=== PATIENT | male | born 1965 | race Caucasian/White ===

== ENCOUNTER → 2017-01-15 | Day surgery (SDC) | payer MEDICAID ==
[~2017-01-15] MED LIST: Lactated Ringers 1,000 ML IV SCH; Propofol 200 MG/20 ML SDV IV ONE
[2017-01-15 09:29] VITALS: BP 160/92
--- NOTE | 2017-01-15 13:36 | OR ---
DATE OF OPERATION: 01/15/2017 PREOPERATIVE DIAGNOSIS: SCREENING COLONOSCOPY. POSTOPERATIVE DIAGNOSIS: SCREENING COLONOSCOPY. SURGEON: Indra Watson MD PROCEDURE: FULL-LENGTH COLONOSCOPY WITH SNARE POLYPECTOMY X1. ANESTHESIA: SKIVER MACHINE due to morbid obesity, GERD. COMPLICATIONS: None. SPECIMEN: Large tubular adenoma in rectal vault. FINDINGS: 1. Full-length colonoscopy. 2. Tubular adenoma greater than 0.5 cm rectal vault. RECOMMENDATIONS: Followup colonoscopy in 2 years. INDICATIONS: The patient was due for a physical. Dr. Jiménez recommended a screening colonoscopy. DESCRIPTION OF PROCEDURE: The patient was prepped and draped, placed in the left lateral decubitus position. A lubricated Olympus colonoscope was inserted and with relative ease advanced to the cecum. We were able to directly visualize the ileocecal valve and appendiceal orifice. The bowel prep was marginal. There was a lot of dark liquid stool throughout and in certain areas were certainly hard to see. Upon withdrawal, cecum, ascending and transverse colon showed no gross abnormalities, but much stool was present. Left colon was little easier to visualize as most of the stool was suctionable there. Throughout the descending and sigmoid area, I found no signs of any polyps, masses, ulcerations, or bleeding sites. No obvious vascular abnormalities or signs of colitis. There were no obvious diverticula. Rectosigmoid junction appeared benign in the rectal vault. The patient had a stalked tubular adenoma 3 or 4 cm inside the anal verge. I easily removed with a snare and pulled out through the rectum itself. It measured about 6 mm. The rest of rectal vault was benign. Retroflexion showed no perianal lesions. Air was then suctioned. Scope was removed without complication. TIFFANIE/EMILIANO /[id number]
== END ==
LOC: CC.SDS 06:54
PROVIDERS: ATTEND Family Medicine
DX: Z12.11 Encounter for screening for malignant neoplasm of colon (principal); K62.1 Rectal polyp; K62.6 Ulcer of anus and rectum; K21.9 Gastro-esophageal reflux disease without esophagitis; E66.01 Morbid (severe) obesity due to excess calories; N40.0 Benign prostatic hyperplasia without lower urinary tract symptoms; E11.9 Type 2 diabetes mellitus without complications; E78.5 Hyperlipidemia, unspecified; Z79.84 Long term (current) use of oral hypoglycemic drugs; Z98.890 Other specified postprocedural states; Z79.899 Other long term (current) drug therapy; Z72.0 Tobacco use; Z68.43 Body mass index [BMI] 50.0-59.9, adult
CPT/HCPCS: 45385; 82962; J2704; J7120

== ENCOUNTER 2017-02-03 15:16 | Inpatient (IN) | payer MEDICAID ==
[2017-02-03] MEDS ORDERED: Sodium Chloride 0.9% 10 ML Syringe FLUSH PRN (15:20)
[2017-02-03] MEDS ORDERED: Docusate Sodium 100 MG Cap PO PRN (15:20)
[2017-02-03] MEDS ORDERED: Acetaminophen 325 MG Tab PO PRN (15:20)
[2017-02-03] MEDS ORDERED: Temazepam 15 MG Cap PO PRN (15:20)
[2017-02-03] MEDS ORDERED: Levofloxacin/Dextrose 5%-Water 500 MG in Premix Bag 1 BAG IV ONE (15:30)
[2017-02-03] MEDS ORDERED: methylPREDNISolone Sodium Succinate 125 MG/2 ML SDV IVPUSH ONE (15:30)
[2017-02-03 16:08] LABS: BICARBONATE,ARTERIAL 33.7 mm/L (22.0-26.0); O2 DELIVERY DEVICE ROOM AIR; O2 SATURATION ARTERIAL 85 % (95-98); PCO2 ARTERIAL 45 mm/Hg0 (35-45); PO2 ARTERIAL 47 mm/Hg (80-100)
[2017-02-03 16:28] LABS: CHLORIDE,CL 98 mEq/L (98-106); SODIUM,NA 138 mEq/L (136-145)
[2017-02-03] MEDS: Albuterol/Ipratropium 3.0-0.5 MG/3 ML Neb Soln NEB SCH ×2 (17:37→20:44)
[2017-02-03] MEDS: metFORMIN 500 MG Tab PO SCH (18:11)
[2017-02-03] MEDS: Ferrous Sulfate 324 MG Tab.EC PO SCH (18:11)
[2017-02-03] MEDS: Insulin Aspart 100 Units/ML 3 ML Pen SUBCUT SCH ×2 (18:19→20:46)
[2017-02-03] MEDS ORDERED: methylPREDNISolone Sodium Succinate 125 MG/2 ML SDV ONE (18:41)
[2017-02-03] MEDS ORDERED: Insulin Detemir 100 Units/ML 3 ML Pen SUBCUT SCH (20:00)
[2017-02-03] MEDS: Enoxaparin 40 MG/0.4 ML Syringe SUBCUT SCH (20:44)
[2017-02-03] MEDS: Simvastatin 20 MG Tab PO SCH (20:44)
[2017-02-03] MEDS: Ascorbic Acid 500 MG Tab PO SCH (20:44)
[2017-02-03] MEDS: Famotidine 20 MG Tab PO SCH (20:44)
[2017-02-04] MEDS: metFORMIN 500 MG Tab PO SCH ×2 (08:21→17:49)
[2017-02-04] MEDS: Ferrous Sulfate 324 MG Tab.EC PO SCH ×2 (08:21→17:49)
[2017-02-04] MEDS: amLODIPine 10 MG Tab PO SCH (08:22)
[2017-02-04] MEDS: Lisinopril 10 MG Tab PO SCH (08:22)
[2017-02-04] MEDS: Ascorbic Acid 500 MG Tab PO SCH ×2 (08:22→19:45)
[2017-02-04] MEDS: Folic Acid 1 MG Tab PO SCH (08:22)
[2017-02-04] MEDS: Famotidine 20 MG Tab PO SCH ×2 (08:22→19:45)
[2017-02-04] MEDS: Hydrochlorothiazide 25 MG Tab PO SCH (08:22)
[2017-02-04] MEDS: Atenolol 50 MG Tab PO SCH (08:22)
[2017-02-04] MEDS: methylPREDNISolone Sodium Succinate 125 MG/2 ML SDV IVPUSH SCH (08:23)
[2017-02-04] MEDS: Levofloxacin/Dextrose 5%-Water 500 MG in Premix Bag 1 BAG IV SCH (08:23)
[2017-02-04] MEDS: Albuterol/Ipratropium 3.0-0.5 MG/3 ML Neb Soln NEB SCH ×4 (08:24→20:50)
[2017-02-04] MEDS: Insulin Aspart 100 Units/ML 3 ML Pen SUBCUT SCH ×6 (08:31→20:51)
[2017-02-04] MEDS ORDERED: Insulin Aspart 100 Units/ML 3 ML Pen SUBCUT SCH (12:00)
[2017-02-04] MEDS: Simvastatin 20 MG Tab PO SCH (19:45)
[2017-02-04] MEDS: Enoxaparin 40 MG/0.4 ML Syringe SUBCUT SCH (19:45)
[2017-02-04] MEDS ORDERED: Insulin Detemir 100 Units/ML 3 ML Pen SUBCUT SCH (20:00)
[2017-02-05] MEDS: Ferrous Sulfate 324 MG Tab.EC PO SCH ×2 (07:45→17:43)
[2017-02-05] MEDS: Folic Acid 1 MG Tab PO SCH (07:45)
[2017-02-05] MEDS: Hydrochlorothiazide 25 MG Tab PO SCH (07:46)
[2017-02-05] MEDS: Famotidine 20 MG Tab PO SCH ×2 (07:47→20:51)
[2017-02-05] MEDS: Ascorbic Acid 500 MG Tab PO SCH ×2 (07:48→20:51)
[2017-02-05] MEDS: amLODIPine 10 MG Tab PO SCH (07:49)
[2017-02-05] MEDS: Atenolol 50 MG Tab PO SCH (07:50)
[2017-02-05] MEDS: metFORMIN 500 MG Tab PO SCH ×2 (07:57→17:43)
[2017-02-05] MEDS: Lisinopril 10 MG Tab PO SCH (07:58)
[2017-02-05] MEDS: methylPREDNISolone Sodium Succinate 125 MG/2 ML SDV IVPUSH SCH (07:58)
[2017-02-05] MEDS: Insulin Aspart 100 Units/ML 3 ML Pen SUBCUT SCH ×7 (08:08→20:53)
[2017-02-05] MEDS: Levofloxacin/Dextrose 5%-Water 500 MG in Premix Bag 1 BAG IV SCH (08:10)
--- NOTE | 2017-02-05 08:13 | PN ---
DATE: 02/04/2017 S: Jovanny is in with acute bronchiolitis, hypoxic. Says he feels better. Today, the sats are up a little bit. O: NECK: Supple. CHEST: Still in expiratory wheezing, but improved. I did look at his chest x-ray and that shows just some bronchial infection, no pneumonias. GLADYS/EMILIANO /[id number]
[2017-02-05] MEDS: Albuterol/Ipratropium 3.0-0.5 MG/3 ML Neb Soln NEB SCH ×4 (08:15→20:51)
[2017-02-05] MEDS ORDERED: Insulin Detemir 100 Units/ML 3 ML Pen SUBCUT SCH (20:00)
[2017-02-05] MEDS: Enoxaparin 40 MG/0.4 ML Syringe SUBCUT SCH (20:51)
[2017-02-05] MEDS: Simvastatin 20 MG Tab PO SCH (20:51)
--- NOTE | 2017-02-06 07:36 | PCM.DCSUM1 ---
Discharge Summary - Hospital Course HPI Initial Comments: This patient is a 52 year old male that was admitted for bronchitis with shortness of breath. The patient reports today he is feeling much better. The patient has been ambulating in the hallways without any difficulty or shortness of breath. The patient is conversing in full and complete sentences without any difficulty. Patient is in no acute distress. I have discussed patient case with PCP, will discharge home today. I will continue his abx and steroids. Patient has had elevation of wbc, I believe this is due to steroid use. Stable. - Discharge Data Discharge Date: 02/06/17 Discharge Disposition: Home, Self-Care 01 Condition: Good - Patient Summary/Data Consults: Consultations 02/03/17 15:20 PT Evaluation and Treatment [CONS] Routine - Patient Instructions Diet: Usual Diet as Tolerated Activity: As Tolerated Driving: May Drive Today Showering/Bathing: May Shower Notify Provider of: Fever, Nausea and/or Vomiting Other/Special Instructions: Return for difficulty breathing, fever, or any other concerns - Discharge Plan Prescriptions/Med Rec: Levofloxacin/Dextrose 5%-Water [Levaquin in D5W 500 MG/100 ML] 500 mg PO Q24H # 5 bag Prednisone [IJD: predniSONE] 20 mg PO BID #10 tab Home Medications: Home Meds Acetaminophen [Tylenol] 650 mg PO Q4H PRN 04/24/13 [History] Ascorbic Acid [Vitamin C] 500 mg PO BID 04/24/13 [History] Atenolol [Tenormin] 50 mg PO DAILY 04/24/13 [History] Famotidine [Pepcid] 20 mg PO BID 04/24/13 [History] Ferrous Sulfate [Iron] 325 mg PO BID 04/24/13 [History] Folic Acid 1 mg PO DAILY 04/24/13 [History] Hydrochlorothiazide 25 mg PO DAILY 04/24/13 [History] Insulin Aspart [NovoLOG] 20 unit SUBCUT WITHLUNCH 04/24/13 [History] Insulin Glarg,Human.Rec.Analog [Lantus] 64 unit SQ BEDTIME 04/24/13 [History] Lisinopril [Zestril] 10 mg PO DAILY 04/24/13 [History] amLODIPine [Norvasc] 10 mg PO DAILY 04/24/13 [History] Magnesium 500 mg PO DAILY 01/27/15 [History] Multivitamin [Multivitamins] 1 tab PO DAILY 01/27/15 [History] Cholecalciferol (Vitamin D3) [Vitamin D3] 5,000 unit PO DAILY 09/07/15 [History] metFORMIN HCl [Metformin HCl] 1,000 mg PO BID 01/14/17 [History] Rosuvastatin Calcium 10 mg PO BEDTIME 02/03/17 [History] Testosterone Cypionate 200 mg IM Q30D 02/03/17 [History] Levofloxacin/Dextrose 5%-Water [Levaquin in D5W 500 MG/100 ML] 500 mg PO Q24H # 5 bag 02/06/17 [Rx] Prednisone [IJD: predniSONE] 20 mg PO BID #10 tab 02/06/17 [Rx] Patient Handouts: Acute Bronchitis Referrals: Reilly Jiménez MD [Primary Care Provider] - - Discharge Summary/Plan Comment DC Time >30 min.: No Discharge Summary/Plan Comment: Followup with your primary care provider Wednesday Return to the ER for worsening of condition or any emergent concerns Prednisone 20mg 1 pill twice a day for 5 days #10 no refill Levaquin 500mg 1 pill once a day for 5 days #5 no refill - General Info Date of Service: 02/06/17 Functional Status: Reports: Pain Controlled, Tolerating Diet, Ambulating - Review of Systems General: Reports: No Symptoms HEENT: Reports: No Symptoms Pulmonary: Reports: No Symptoms Cardiovascular: Reports: No Symptoms Gastrointestinal: Reports: No Symptoms Genitourinary: Reports: No Symptoms Musculoskeletal: Reports: No Symptoms Skin: Reports: No Symptoms Neurological: Reports: No Symptoms Psychiatric: Reports: No Symptoms - Patient Data Vitals - Most Recent: Last Vital Signs Temp 98.9 F 02/06/17 03:59 Pulse 76 02/06/17 03:59 Resp 20 02/06/17 03:59 BP 153/68 H 02/06/17 03:59 Pulse Ox 90 L 02/06/17 03:59 Weight - Most Recent: 363 lb 9.6 oz I&O - Last 24 hours: Intake & Output 02/05/17 02/06/17 02/06/17 22:59 06:59 14:59 Intake Total 200 Balance 200 Lab Results - Last 24 hrs: Laboratory Results - last 24 hr 02/05/17 02/05/17 02/05/17 Range/Units 07:45 11:36 17:07 POC Glucose 182 H 225 H 236 H (75-105) mg/dl 02/05/17 Range/Units 20:49 POC Glucose 275 H (75-105) mg/dl ESTELLE Results - Last 24 hrs: Microbiology 02/03/17 15:55 Aerobic Blood Culture - Preliminary Blood - Venous NO GROWTH AFTER 2 DAYS Anaerobic Blood Culture - Preliminary NO GROWTH AFTER 2 DAYS 02/03/17 15:55 Aerobic Blood Culture - Preliminary Blood - Venous - Lab Draw NO GROWTH AFTER 2 DAYS Anaerobic Blood Culture - Preliminary NO GROWTH AFTER 2 DAYS Med Orders - Current: Current Medications Acetaminophen (Tylenol) 650 mg PO Q4H PRN PRN Reason: Pain (Mild 1-3)/fever Last Admin: 02/03/17 20:55 Dose: 650 mg Albuterol/Ipratropium (Duoneb 3.0-0.5 Mg/3 Ml) 3 ml NEB QIDRT [facility] Last Admin: 02/05/17 20:51 Dose: 3 ml Amlodipine Besylate (Norvasc) 10 mg PO DAILY [facility] Last Admin: 02/05/17 07:49 Dose: 10 mg Ascorbic Acid (Vitamin C) 500 mg PO BID [facility] Last Admin: 02/05/17 20:51 Dose: 500 mg Atenolol (Tenormin) 50 mg PO DAILY [facility] Last Admin: 02/05/17 07:50 Dose: 50 mg Docusate Sodium (Colace) 100 mg PO BID PRN PRN Reason: Constipation Enoxaparin Sodium (Lovenox) 40 mg SUBCUT Q24H [facility] Last Admin: 02/05/17 20:51 Dose: 40 mg Famotidine (Pepcid) 20 mg PO BID [facility] Last Admin: 02/05/17 20:51 Dose: 20 mg Ferrous Sulfate (Ferrous Sulfate) 324 mg PO BIDMEALS [facility] Last Admin: 02/05/17 17:43 Dose: 324 mg Folic Acid (Folic Acid) 1 mg PO DAILY [facility] Last Admin: 02/05/17 07:45 Dose: 1 mg Hydrochlorothiazide (Hydrochlorothiazide) 25 mg PO DAILY [facility] Last Admin: 02/05/17 07:46 Dose: 25 mg Levofloxacin/Dextrose 500 mg/ (Premix) 100 mls @ 100 mls/hr IV Q24H [facility] Last Admin: 02/05/17 08:10 Dose: 100 mls/hr Insulin Aspart (Novolog) 0 unit SUBCUT WITHMEALSANDBED [facility] PRN Reason: Protocol Last Admin: 02/05/17 20:53 Dose: 9 units Insulin Aspart (Novolog) 14 unit SUBCUT TIDMEALS [facility] Last Admin: 02/05/17 17:45 Dose: 14 units Insulin Detemir (Levemir) 75 unit SUBCUT BEDTIME [facility] Last Admin: 02/05/17 20:52 Dose: 75 units Lisinopril (Prinivil) 10 mg PO DAILY [facility] Last Admin: 02/05/17 07:58 Dose: 10 mg Magnesium Oxide (Magnesium Oxide) 500 mg PO DAILY [facility] Last Admin: 02/05/17 07:58 Dose: 500 mg Metformin HCl (Glucophage) 1,000 mg PO BIDMEALS [facility] Last Admin: 02/05/17 17:43 Dose: 1,000 mg Methylprednisolone Sodium Succinate (Solu-Medrol) 62.5 mg IVPUSH Q24H [facility] Last Admin: 02/05/17 07:58 Dose: 62.5 mg Simvastatin (Zocor) 20 mg PO BEDTIME [facility] Last Admin: 02/05/17 20:51 Dose: 20 mg Sodium Chloride (Saline Flush) 10 ml FLUSH ASDIRECTED PRN PRN Reason: Keep Vein Open Temazepam (Restoril) 15 mg PO BEDTIME PRN PRN Reason: Sleep Discontinued Medications Levofloxacin/Dextrose 500 mg/ (Premix) 100 mls @ 100 mls/hr IV ONETIME ONE Stop: 02/03/17 16:29 Last Admin: 02/03/17 17:09 Dose: 100 mls/hr Insulin Aspart (Novolog) 20 unit SUBCUT WITHLUNCH [facility] Insulin Aspart (Novolog) 10 unit SUBCUT TIDMEALS [facility] Last Admin: 02/05/17 08:08 Dose: 10 unit Insulin Detemir (Levemir) 64 unit SUBCUT BEDTIME [facility] Last Admin: 02/03/17 20:47 Dose: 64 units Insulin Detemir (Levemir) 70 unit SUBCUT BEDTIME [facility] Last Admin: 02/04/17 19:47 Dose: 70 units Methylprednisolone Sodium Succinate (Solu-Medrol) 62.5 mg IVPUSH ONETIME ONE Stop: 02/03/17 15:31 Last Admin: 02/03/17 18:28 Dose: 62.5 mg Methylprednisolone Sodium Succinate (Solu-Medrol) Confirm Administered Dose 125 mg .ROUTE .STK-MED ONE Stop: 02/03/17 18:42 Last Admin: 02/03/17 18:32 Dose: Not Given - Exam General: Reports: Alert, Oriented, Cooperative, No Acute Distress Neck: Reports: Supple Lungs: Reports: Clear to Auscultation, Normal Respiratory Effort GI/Abdominal Exam: Soft, Non-Tender Back Exam: Reports: Normal Inspection, Full Range of Motion Extremities: Normal Inspection, Normal Range of Motion, Non-Tender, No Pedal Edema, Normal Capillary Refill Skin: Reports: Warm, Dry, Intact Neurological: Reports: No New Focal Deficit Psy/Mental Status: Reports: Alert, Normal Affect, Normal Mood *Q Meaningful Use (DIS) - VTE *Q VTE Criteria *Q: - Stroke *Q Stroke Criteria *Q: - AMI *Q AMI Criteria *Q:
[2017-02-06 08:01] LABS: CHLORIDE,CL 100 mEq/L (98-106); SODIUM,NA 135 mEq/L (136-145)
[2017-02-06 08:29] VITALS: BP 148/66
[2017-02-06] MEDS: Hydrochlorothiazide 25 MG Tab PO SCH (08:29)
[2017-02-06] MEDS: Albuterol/Ipratropium 3.0-0.5 MG/3 ML Neb Soln NEB SCH (08:29)
[2017-02-06] MEDS: Famotidine 20 MG Tab PO SCH (08:29)
[2017-02-06] MEDS: Lisinopril 10 MG Tab PO SCH (08:29)
[2017-02-06] MEDS: Folic Acid 1 MG Tab PO SCH (08:29)
[2017-02-06] MEDS: Ferrous Sulfate 324 MG Tab.EC PO SCH (08:30)
[2017-02-06] MEDS: Ascorbic Acid 500 MG Tab PO SCH (08:30)
[2017-02-06] MEDS: amLODIPine 10 MG Tab PO SCH (08:30)
[2017-02-06] MEDS: metFORMIN 500 MG Tab PO SCH (08:31)
[2017-02-06] MEDS: methylPREDNISolone Sodium Succinate 125 MG/2 ML SDV IVPUSH SCH (08:31)
[2017-02-06] MEDS: Insulin Aspart 100 Units/ML 3 ML Pen SUBCUT SCH ×2 (08:33→08:34)
[2017-02-06] MEDS: Levofloxacin/Dextrose 5%-Water 500 MG in Premix Bag 1 BAG IV SCH (08:35)
[2017-02-06] MEDS: Atenolol 50 MG Tab PO SCH (08:40)
--- NOTE | 2017-02-12 09:24 | PN ---
DATE: 02/05/2017 S: The patient with severe bronchiolitis. O: GENERAL: On examination, the patient is alert and orientated. VITAL SIGNS: As noted. NECK: Supple. CHEST: Occasional wheeze. CARDIAC: Sounds are good. No edema or bronchiolitis. P: Continue present therapy. KASIE /[id number]
== END 2017-02-06 10:25 | disposition home or self-care (01) | DRG 203 ==
LOC: CC.MS 15:16 → UNDOADMIN 15:16 → CC.MS 15:20
PROVIDERS: ADMIT General Practice; ATTEND General Practice
DX: J21.9 Acute bronchiolitis, unspecified (principal); E11.9 Type 2 diabetes mellitus without complications; M19.90 Unspecified osteoarthritis, unspecified site; I10 Essential (primary) hypertension; E29.1 Testicular hypofunction; E78.5 Hyperlipidemia, unspecified; Z88.1 Allergy status to other antibiotic agents; Z79.82 Long term (current) use of aspirin; Z79.4 Long term (current) use of insulin; Z79.84 Long term (current) use of oral hypoglycemic drugs; Z79.899 Other long term (current) drug therapy
CPT/HCPCS: 36415; 36600; 71020; 80048; 80053; 81001; 82803; 82962; 83735; 83880; 84443; 85025; 86140; 87040; 93005; 94640; 94640-76; 97110-GP; 97161-GP; A9270-GY; J1650; J1815-GY; J1956; J2930

== ENCOUNTER 2017-05-24 09:43 | Emergency (ER) | payer MEDICAID ==
[2017-05-24 09:50] VITALS: BP 140/70
[2017-05-24] MEDS ORDERED: Albuterol/Ipratropium 3.0-0.5 MG/3 ML Neb Soln ONE (10:03)
[2017-05-24] MEDS ORDERED: Albuterol/Ipratropium 3.0-0.5 MG/3 ML Neb Soln NEB ONE (10:13)
[2017-05-24 10:30] LABS: CHLORIDE,CL 95 mEq/L (98-106); SODIUM,NA 134 mEq/L (136-145)
[2017-05-24] MEDS ORDERED: Lidocaine 1% 20 ML MDV ONE (10:31)
[2017-05-24] MEDS ORDERED: cefTRIAXone 1 GM Vial IM ONE (10:35)
[2017-05-24] MEDS ORDERED: methylPREDNISolone Acetate 80 MG/ML SDV IM ONE (10:35)
[2017-05-24] MEDS ORDERED: methylPREDNISolone Acetate 80 MG/ML SDV ONE (10:41)
--- NOTE | 2017-05-24 10:53 | EDM.PDOC ---
ED HPI GENERAL MEDICAL PROBLEM - General Chief Complaint: General Stated Complaint: cough, sore throat Time Seen by Provider: 05/24/17 10:27 Source of Information: Reports: Patient History Limitations: Reports: No Limitations - History of Present Illness INITIAL COMMENTS - FREE TEXT/NARRATIVE: Nathaniel is a 52 year old male who presents to the ED with complaints of cold symptoms, cough, and shortness of breath. He complains of nasal congestion, pressure, and drainage. He also reports sore throat and cough. Denies any fever or chills. Denies any chest pain, dizziness, lightheadedness. He reports that for about the past week he has had cold symptoms. He reports he has nebulizer treatments at home, which he has been doing. He reports these help some. He also has a home O2 sat monitor. He reports his oxygen saturations have been good. He has been eating and drinking ok. Onset Date: 05/19/17 Duration: Getting Worse Location: Reports: Head, Chest Associated Symptoms: Reports: Cough, cough w sputum, Shortness of Breath. Denies: Confusion, Chest Pain, Diaphoresis, Fever/Chills, Headaches, Loss of Appetite, Malaise, Nausea/Vomiting, Rash, Seizure, Syncope, Weakness Treatments [employer]: Reports: Home Treatments (Duonebs) - Related Data Allergies Allergy/AdvReac Type Severity Reaction Status Date / Time sulfamethoxazole Allergy Shortness Verified 05/24/17 09:50 [From Bactrim] of Breath trimethoprim [From Bactrim] Allergy Shortness Verified 05/24/17 09:50 of Breath Home Meds: Home Meds Acetaminophen [Tylenol] 650 mg PO Q4H PRN 04/24/13 [History] Ascorbic Acid [Vitamin C] 500 mg PO BID 04/24/13 [History] Atenolol [Tenormin] 50 mg PO BID 04/24/13 [History] Famotidine [Pepcid] 20 mg PO BID 04/24/13 [History] Ferrous Sulfate [Iron] 325 mg PO BID 04/24/13 [History] Folic Acid 1 mg PO DAILY 04/24/13 [History] Hydrochlorothiazide 25 mg PO DAILY 04/24/13 [History] Insulin Aspart [NovoLOG] 20 unit SUBCUT WITHLUNCH 04/24/13 [History] Insulin Glarg,Human.Rec.Analog [Lantus] 56 unit SQ BEDTIME 04/24/13 [History] Lisinopril [Zestril] 10 mg PO DAILY 04/24/13 [History] amLODIPine [Norvasc] 10 mg PO DAILY 04/24/13 [History] Magnesium 500 mg PO DAILY 01/27/15 [History] Multivitamin [Multivitamins] 1 tab PO DAILY 01/27/15 [History] Cholecalciferol (Vitamin D3) [Vitamin D3] 5,000 unit PO DAILY 09/07/15 [History] metFORMIN HCl [Metformin HCl] 1,000 mg PO BID 01/14/17 [History] Rosuvastatin Calcium 10 mg PO BEDTIME 02/03/17 [History] Testosterone Cypionate 200 mg IM Q30D 02/03/17 [History] Albuterol/Ipratropium [DuoNeb 3.0-0.5 MG/3 ML] 1 vial NEB QID PRN 05/24/17 [ History] Albuterol/Ipratropium [DuoNeb 3.0-0.5 MG/3 ML] 3 ml NEB Q6H PRN #30 neb [Rx] Fluconazole [Diflucan] 100 mg PO DAILY 05/24/17 [History] Ketoconazole [Nizoral 2% Crm] 1 applic TOP BID PRN 05/24/17 [History] Levofloxacin [Levaquin] 500 mg PO Q24H 7 Days #7 tablet 05/24/17 [Rx] Liraglutide [Victoza] 1.8 mg SUBCUT DAILY 05/24/17 [History] Prednisone [IJD: predniSONE] 20 mg PO WITHBREAKFAST 5 Days #5 tab 05/24/17 [Rx] Past Medical History HEENT History: Reports: Impaired Vision, Other (See Below) Other HEENT History: right hearing loss due to cerumen impaction, TMJ syndrome Cardiovascular History: Reports: High Cholesterol, Hypertension, SOB on Exertion , Other (See Below) Other Cardiovascular History: systolic murmur of aorta Respiratory History: Reports: SOB Gastrointestinal History: Reports: GERD Genitourinary History: Reports: BPH, Chronic Renal Insuffiency, Other (See Below ) Other Genitourinary History: nocturia, low testosterone Musculoskeletal History: Reports: Arthritis, Back Pain, Chronic, Other (See Below) Other Musculoskeletal History: back pain with sciatica Endocrine/Metabolic History: Reports: Diabetes, Type II, Obesity/BMI 30+, Vitamin D Deficiency Hematologic History: Reports: Other (See Below) Other Hematologic History: vitamin D deficiency Dermatologic History: Reports: Other (See Below) Other Dermatologic History: history of candidiasis and cellulitis of umbilicus, hx of inflamed seborrheic keratosis - Infectious Disease History Infectious Disease History: Reports: MRSA - Past Surgical History GI Surgical History: Reports: Other (See Below) Other GI Surgeries/Procedures: panniculectomy Social & Family History - Family History Family Medical History: Noncontributory Endocrine/Metabolic: Reports: Diabetes, type II, Obesity/MBI 30+ - Tobacco Use Smoking Status *Q: Never Smoker Second Hand Smoke Exposure: No - Caffeine Use Caffeine Use: Reports: Soda - Alcohol Use Days Per Week of Alcohol Use: 0 - Recreational Drug Use Recreational Drug Use: No - Living Situation & Occupation Living situation: Reports: Single Occupation: Unemployed ED ROS GENERAL - Review of Systems Review Of Systems: See Below Constitutional: Reports: Fatigue. Denies: Fever, Chills, Malaise, Weakness, Decreased Appetite HEENT: Reports: Rhinitis, Sinus Problem, Throat Pain. Denies: Dental Pain, Ear Discharge, Ear Pain, Eye Pain, Throat Swelling, Vision Change Respiratory: Reports: Shortness of Breath, Wheezing, Cough, Sputum. Denies: Pleuritic Chest Pain, Hemoptysis Cardiovascular: Reports: Dyspnea on Exertion. Denies: Chest Pain, Blood Pressure Problem, Lightheadedness Endocrine: Reports: Fatigue GI/Abdominal: Reports: No Symptoms. Denies: Abdominal Pain, Anorexia, Diarrhea , Decreased Appetite, Nausea, Vomiting : Reports: No Symptoms. Denies: Dysuria, Frequency Musculoskeletal: Reports: No Symptoms Skin: Reports: No Symptoms. Denies: Cyanosis, Diaphoresis Neurological: Reports: No Symptoms. Denies: Confusion, Dizziness, Headache Psychiatric: Reports: No Symptoms Hematologic/Lymphatic: Reports: No Symptoms Immunologic: Reports: No Symptoms ED EXAM, GENERAL - Physical Exam Exam: See Below Exam Limited By: No Limitations General Appearance: Alert, WD/WN, No Apparent Distress Eye Exam: Bilateral Eye: EOMI, Normal Fundi, Normal Inspection, PERRL Ears: Normal External Exam, Normal Canal, Hearing Grossly Normal, Normal TMs Nose: Nasal Swelling, Nasal Drainage. No: Nasal Flaring Throat/Mouth: Normal Inspection, Normal Lips, Normal Teeth, Normal Gums, No Airway Compromise. No: Other (pharynx erythematous) Head: Atraumatic, Normocephalic Neck: Normal Inspection, Supple, Non-Tender, Full Range of Motion Respiratory/Chest: No Respiratory Distress, No Accessory Muscle Use, Decreased Breath Sounds, Wheezing. No: Crackles, Rales, Rhonchi Cardiovascular: Normal Peripheral Pulses, Regular Rate, Rhythm, No Edema, No Gallop, No JVD, No Murmur, No Rub GI/Abdominal: Normal Bowel Sounds, Soft, Non-Tender, No Organomegaly, No Distention, No Abnormal Bruit, No Mass Back Exam: Normal Inspection, Full Range of Motion. No: CVA Tenderness (L), CVA Tenderness (R) Extremities: Normal Inspection, Normal Range of Motion, Non-Tender, Normal Capillary Refill, No Pedal Edema Neurological: Alert, Oriented, CN II-XII Intact, Normal Cognition, Normal Gait, Normal Reflexes, No Motor/Sensory Deficits Psychiatric: Normal Affect, Normal Mood Skin Exam: Warm, Dry, Intact, Normal Color, No Rash Lymphatic: No Adenopathy Course - Vital Signs Last Recorded V/S: Last Vital Signs Temp 99.6 F 05/24/17 09:44 Pulse 85 05/24/17 09:44 Resp 20 05/24/17 09:44 BP 140/70 05/24/17 09:44 Pulse Ox 94 L 05/24/17 09:44 - Orders/Labs/Meds Labs: Laboratory Tests 05/24/17 05/24/17 Range/Units 10:20 10:20 WBC 5.6 (5.0-10.0) 10^3/uL RBC 5.60 (4.50-6.00) 10^6/uL Hgb 14.6 (14.0-18.0) g/dL Hct 45.1 (40.0-54.0) % MCV 80.5 L (82.0-94.0) fL MCH 26.1 L (27.0-32.0) pg MCHC 32.4 L (33.0-38.0) g/dL RDW Coeff of Sophie 14.9 (11.0-15.0) % Plt Count 178 (150-400) 10^3/uL Neut % (Auto) 67.4 (35-85) % Lymph % (Auto) 17.4 (10-55) % [place] % (Auto) 13.3 (0-16) % Eos % (Auto) 1.4 (0-5) % Baso % (Auto) 0.5 (0-3) % Neut # (Auto) 3.75 (1.80-7.00) 10^3/uL Lymph # (Auto) 0.97 L (1.00-4.80) 10^3/uL [place] # (Auto) 0.74 (0.00-0.80) 10^3/uL Eos # (Auto) 0.08 (0.00-0.45) 10^3/uL Baso # (Auto) 0.03 10^3/uL Sodium 134 L (136-145) mEq/L Potassium 4.4 (3.5-5.0) mEq/L Chloride 95 L (98-106) mEq/L Carbon Dioxide 30 (21-32) mmol/L BUN 19 H (7-18) mg/dL Creatinine 1.1 (0.7-1.3) mg/dL Est Cr Clr Drug Dosing 71.69 mL/min Estimated GFR (MDRD) > 60 (>=60) mL/min Glucose 226 H (75-99) mg/dL Calcium 9.3 (8.4-10.1) mg/dL C-Reactive Protein 6.0 H (0.2-0.8) mg/dL Meds: Medications Discontinued Medications Generic Name Dose Route Start Last Admin Trade Name Abbe PRN Reason Stop Dose Admin Albuterol/Ipratropium Confirm 05/24/17 10:03 05/24/17 10:15 Duoneb 3.0-0.5 Mg/3 Ml Administered 05/24/17 10:04 Not Given Dose 3 ml .ROUTE .STK-MED ONE Albuterol/Ipratropium 3 ml 05/24/17 10:13 05/24/17 10:13 Duoneb 3.0-0.5 Mg/3 Ml NEB 05/24/17 10:14 3 ml ONETIME ONE Administration Ceftriaxone Sodium 1 gm 05/24/17 10:35 05/24/17 10:51 Rocephin IM 05/24/17 10:36 1 gm ONETIME ONE Administration Lidocaine HCl Confirm 05/24/17 10:31 05/24/17 10:51 Xylocaine 1% Administered 05/24/17 10:32 2.1 ml Dose Administration 20 ml .ROUTE .STK-MED ONE Methylprednisolone Acetate 160 mg 05/24/17 10:35 05/24/17 10:49 Depo-Medrol IM 05/24/17 10:36 160 mg ONETIME ONE Administration Methylprednisolone Acetate Confirm 05/24/17 10:41 05/24/17 10:53 Depo-Medrol Administered 05/24/17 10:42 Not Given Dose 80 mg .ROUTE .STK-MED ONE - Re-Assessments/Exams Free Text/Narrative Re-Assessment/Exam: Discussed lab and CXR findings with patient. Will give patient steroid and antibiotic shot and send home on oral antibiotics and nebulizers. Departure - Departure Time of Disposition: 10:51 Disposition: Home, Self-Care 01 Condition: Good Clinical Impression: Bronchiolitis - Discharge Information Prescriptions: Albuterol/Ipratropium [DuoNeb 3.0-0.5 MG/3 ML] 3 ml NEB Q6H PRN #30 neb PRN Reason: Shortness Of Breath Levofloxacin [Levaquin] 500 mg PO Q24H 7 Days #7 tablet Prednisone [IJD: predniSONE] 20 mg PO WITHBREAKFAST 5 Days #5 tab Referrals: Reilly Jiménez MD [Primary Care Provider] - Forms: ED Department Discharge Additional Instructions: Start antibiotic and steroid pills tomorrow. Script sent to pharmacy. Recommend Duonebs Q 4-6 hours as needed for shortness of breath. Refill of nebulizers sent to pharmacy. Push fluids Rest as much as possible Tylenol or ibuprofen as needed for fever/discomfort May use OTC Mucinex DM as needed Follow up in clinic if symptoms worsen or do not improve
== END 2017-05-24 11:00 | disposition home or self-care (01) ==
LOC: CC.ED 09:43
DX: J21.9 Acute bronchiolitis, unspecified (principal); I12.9 Hypertensive chronic kidney disease with stage 1 through stage 4 chronic kidney disease, or unspecified chronic kidney disease; E11.22 Type 2 diabetes mellitus with diabetic chronic kidney disease; N18.9 Chronic kidney disease, unspecified; K21.9 Gastro-esophageal reflux disease without esophagitis; E78.00 Pure hypercholesterolemia, unspecified; Z79.4 Long term (current) use of insulin; Z79.899 Other long term (current) drug therapy; Z88.1 Allergy status to other antibiotic agents; Z88.2 Allergy status to sulfonamides
CPT/HCPCS: 36415; 71046; 80048; 85025; 86140; 94640; 96372; 99283; J0696; J1040

== ENCOUNTER 2017-11-07 18:32 | Emergency (ER) | payer MEDICAID ==
[2017-11-07] MEDS ORDERED: cloNIDine 0.1 MG Tab ONE (18:34)
[2017-11-07] MEDS ORDERED: cloNIDine 0.1 MG Tab PO SCH (18:45)
[2017-11-07 19:20] VITALS: BP 165/85
--- NOTE | 2017-11-07 19:28 | EDM.PDOC ---
ED HPI GENERAL MEDICAL PROBLEM - General Chief Complaint: General Stated Complaint: Not feeling well Time Seen by Provider: 11/07/17 19:08 Source of Information: Reports: Patient History Limitations: Reports: No Limitations - History of Present Illness INITIAL COMMENTS - FREE TEXT/NARRATIVE: Patient presents today with complaints of high blood pressure. He states has felt a "little dizzy and has a slight headache". Said his blood pressure was 144/77 and his pulse was 102. Does note mild palpitations. Denies any chest pain. No shortness of breath. "feel nervous now". Patient does take 3 blood pressure medications daily but per his med record, he should be taking metoprolol BID. He has not been taking the evening dose. Mild nausea. No vomiting. Onset: Today, Sudden Duration: Hour(s): Location: Reports: Chest Severity: Mild Associated Symptoms: Reports: Nausea/Vomiting. Denies: Confusion, Chest Pain, Cough, Diaphoresis, Fever/Chills, Loss of Appetite, Shortness of Breath, Weakness Headache Pain Score (Numeric/FACES): 3 - Related Data Allergies Allergy/AdvReac Type Severity Reaction Status Date / Time sulfamethoxazole Allergy Shortness Verified 11/07/17 18:39 [From Bactrim] of Breath trimethoprim [From Bactrim] Allergy Shortness Verified 11/07/17 18:39 of Breath Home Meds: Home Meds Acetaminophen [Tylenol] 650 mg PO Q4H PRN 04/24/13 [History] Ascorbic Acid [Vitamin C] 500 mg PO BID 04/24/13 [History] Atenolol [Tenormin] 50 mg PO BID 04/24/13 [History] Famotidine [Pepcid] 20 mg PO BID 04/24/13 [History] Ferrous Sulfate [Iron] 325 mg PO BID 04/24/13 [History] Folic Acid 1 mg PO DAILY 04/24/13 [History] Hydrochlorothiazide 25 mg PO DAILY 04/24/13 [History] Insulin Aspart [NovoLOG] 20 unit SUBCUT WITHLUNCH 04/24/13 [History] Insulin Glarg,Human.Rec.Analog [Lantus] 56 unit SQ BEDTIME 04/24/13 [History] Lisinopril [Zestril] 10 mg PO DAILY 04/24/13 [History] amLODIPine [Norvasc] 10 mg PO DAILY 04/24/13 [History] Magnesium 500 mg PO DAILY 01/27/15 [History] Multivitamin [Multivitamins] 1 tab PO DAILY 01/27/15 [History] Cholecalciferol (Vitamin D3) [Vitamin D3] 5,000 unit PO DAILY 09/07/15 [History] metFORMIN HCl [Metformin HCl] 1,000 mg PO BID 01/14/17 [History] Rosuvastatin Calcium 10 mg PO BEDTIME 02/03/17 [History] Albuterol/Ipratropium [DuoNeb 3.0-0.5 MG/3 ML] 1 vial NEB QID PRN 05/24/17 [ History] Liraglutide [Victoza] 1.8 mg SUBCUT DAILY 05/24/17 [History] Liraglutide [Victoza] 1.8 mg SUBCUT DAILY 11/07/17 [History] Past Medical History HEENT History: Reports: Impaired Vision, Other (See Below) Other HEENT History: right hearing loss due to cerumen impaction, TMJ syndrome Cardiovascular History: Reports: High Cholesterol, Hypertension, SOB on Exertion , Other (See Below) Other Cardiovascular History: systolic murmur of aorta Respiratory History: Reports: SOB Gastrointestinal History: Reports: GERD Genitourinary History: Reports: BPH, Chronic Renal Insuffiency, Other (See Below ) Other Genitourinary History: nocturia, low testosterone Musculoskeletal History: Reports: Arthritis, Back Pain, Chronic, Other (See Below) Other Musculoskeletal History: back pain with sciatica Endocrine/Metabolic History: Reports: Diabetes, Type II, Obesity/BMI 30+, Vitamin D Deficiency Hematologic History: Reports: Other (See Below) Other Hematologic History: vitamin D deficiency Dermatologic History: Reports: Other (See Below) Other Dermatologic History: history of candidiasis and cellulitis of umbilicus, hx of inflamed seborrheic keratosis - Infectious Disease History Infectious Disease History: Reports: MRSA - Past Surgical History GI Surgical History: Reports: Other (See Below) Other GI Surgeries/Procedures: panniculectomy Social & Family History - Family History Family Medical History: Noncontributory Endocrine/Metabolic: Reports: Diabetes, type II, Obesity/MBI 30+ - Tobacco Use Smoking Status *Q: Never Smoker - Caffeine Use Caffeine Use: Reports: Soda - Living Situation & Occupation Living situation: Reports: Single Occupation: Unemployed ED [facility] GENERAL - Review of Systems Review Of Systems: See Below Constitutional: Denies: Fever, Chills, Malaise, Weakness, Fatigue, Decreased Appetite HEENT: Reports: No Symptoms Respiratory: Denies: Shortness of Breath, Cough Cardiovascular: Denies: Chest Pain, Edema, Lightheadedness Endocrine: Denies: Fatigue GI/Abdominal: Reports: Nausea. Denies: Abdominal Pain, Vomiting : Reports: No Symptoms Musculoskeletal: Reports: No Symptoms Skin: Reports: No Symptoms Neurological: Reports: Dizziness, Headache Psychiatric: Reports: Anxiety ED EXAM, GENERAL - Physical Exam Exam: See Below Exam Limited By: No Limitations General Appearance: Alert, WD/WN, No Apparent Distress Ears: Normal External Exam, Normal TMs Nose: Normal Inspection, Normal Mucosa, No Blood Throat/Mouth: Normal Inspection, Normal Oropharynx Head: Normocephalic Neck: Normal Inspection, Supple, Non-Tender Respiratory/Chest: No Respiratory Distress, Lungs Clear, Normal Breath Sounds Cardiovascular: Regular Rate, Rhythm GI/Abdominal: Normal Bowel Sounds, Soft, Non-Tender Neurological: Alert, Oriented Skin Exam: Warm, Dry Course - Vital Signs Last Recorded V/S: Last Vital Signs Temp 97.4 F 11/07/17 18:33 Pulse 107 H 11/07/17 19:17 Resp 20 11/07/17 18:33 BP 165/85 H 11/07/17 19:17 Pulse Ox 95 11/07/17 18:33 - Orders/Labs/Meds Orders: Active Orders 24 hr Category Date Time Status EKG Documentation Completion [RC] URGENT Care 11/07/17 18:45 Active cloNIDine [Catapres] Med 11/07/17 18:45 Active 0.1 mg PO DAILY Medication Orders Clonidine HCl (Catapres) 0.1 mg PO DAILY [facility] Last Admin: 11/07/17 18:47 Dose: 0.1 mg Labs: Laboratory Tests 11/07/17 11/07/17 11/07/17 Range/Units 18:45 18:45 18:45 WBC 8.6 (5.0-10.0) 10^3/uL RBC 6.07 H (4.50-6.00) 10^6/uL Hgb 16.3 (14.0-18.0) g/dL Hct 48.7 (40.0-54.0) % MCV 80.2 L (82.0-94.0) fL MCH 26.9 L (27.0-32.0) pg MCHC 33.5 (33.0-38.0) g/dL RDW Coeff of Sophie 14.8 (11.0-15.0) % Plt Count 176 (150-400) 10^3/uL Neut % (Auto) 67.9 (35-85) % Lymph % (Auto) 22.8 (10-55) % [place] % (Auto) 7.8 (0-16) % Eos % (Auto) 1.2 (0-5) % Baso % (Auto) 0.3 (0-3) % Neut # (Auto) 5.86 (1.80-7.00) 10^3/uL Lymph # (Auto) 1.97 (1.00-4.80) 10^3/uL [place] # (Auto) 0.67 (0.00-0.80) 10^3/uL Eos # (Auto) 0.10 (0.00-0.45) 10^3/uL Baso # (Auto) 0.03 10^3/uL PT 9.8 (9.7-12.3) SEC INR 0.94 (0.92-1.18) APTT 25.0 (23.2-32.3) SEC Sodium 139 (136-145) mEq/L Potassium 3.9 (3.5-5.0) mEq/L Chloride 100 (98-106) mEq/L Carbon Dioxide 26 (21-32) mmol/L BUN 23 H (7-18) mg/dL Creatinine 1.2 (0.7-1.3) mg/dL Est Cr Clr Drug Dosing 65.72 mL/min Estimated GFR (MDRD) > 60 (>=60) mL/min Glucose 246 H (75-99) mg/dL Calcium 9.4 (8.4-10.1) mg/dL Lactate Dehydrogenase 159 (100-190) U/L Creatine Kinase 120 (35-232) U/L Troponin I < 0.017 (0.00-0.06) ng/mL Meds: Medications Generic Name Dose Route Start Last Admin Trade Name Freq PRN Reason Stop Dose Admin Clonidine HCl 0.1 mg 11/07/17 18:45 11/07/17 18:47 Catapres PO 0.1 mg DAILY BELKIS Administration Discontinued Medications Generic Name Dose Route Start Last Admin Trade Name Abbe PRN Reason Stop Dose Admin Clonidine HCl Confirm 11/07/17 18:34 11/07/17 18:47 Catapres Administered 11/07/17 18:35 Not Given Dose 0.1 mg .ROUTE .[facility] - Re-Assessments/Exams Free Text/Narrative Re-Assessment/Exam: 11/07/17 19:32 Labs and EKG normal. Patient reassured. Blood pressure improving from admit. See vitals record Departure - Departure Time of Disposition: 19:58 Disposition: Home, Self-Care 01 Condition: Good Clinical Impression: Hypertension Qualifiers: Hypertension type: essential hypertension Qualified Code(s): I10 - Essential ( primary) hypertension - Discharge Information Referrals: Reilly Jiménez MD [Primary Care Provider] - Forms: ED Department Discharge Additional Instructions: 1. Rest 2. Take Atenolol dose tonight. 3. Follow blood pressure at home, keep a log and follow up in clinic if continues to be high or if you continue to feel dizzy or have headaches 4. Call with any questions - My Orders Last 24 Hours: My Active Orders 11/07/17 18:45 EKG Documentation Completion [RC] URGENT cloNIDine [Catapres] 0.1 mg PO DAILY - Assessment/Plan Last 24 Hours: My Active Orders 11/07/17 18:45 EKG Documentation Completion [RC] URGENT cloNIDine [Catapres] 0.1 mg PO DAILY
[2017-11-07 19:29] LABS: CHLORIDE,CL 100 mEq/L (98-106); SODIUM,NA 139 mEq/L (136-145)
== END 2017-11-07 20:12 | disposition home or self-care (01) ==
LOC: CC.ED 18:32
DX: I12.9 Hypertensive chronic kidney disease with stage 1 through stage 4 chronic kidney disease, or unspecified chronic kidney disease (principal); E11.22 Type 2 diabetes mellitus with diabetic chronic kidney disease; N18.9 Chronic kidney disease, unspecified; E66.9 Obesity, unspecified; Z88.2 Allergy status to sulfonamides; Z88.8 Allergy status to other drugs, medicaments and biological substances; Z79.899 Other long term (current) drug therapy; Z79.4 Long term (current) use of insulin
CPT/HCPCS: 36415; 80048; 82550; 83615; 84484; 85025; 85610; 85730; 93005; 99284; A9270

== ENCOUNTER 2017-11-21 15:05 | Emergency (ER) | payer MEDICAID ==
[2017-11-21] MEDS ORDERED: Ondansetron 4 MG/2 ML SDV IVPUSH STA (15:36)
[2017-11-21] MEDS ORDERED: Sodium Chloride 0.9% 1,000 ML IV ONE (15:36)
--- NOTE | 2017-11-21 15:43 | EDM.PDOC ---
ED HPI GENERAL MEDICAL PROBLEM - General Chief Complaint: Headache Stated Complaint: headache Time Seen by Provider: 11/21/17 15:24 Source of Information: Reports: Patient History Limitations: Reports: No Limitations - History of Present Illness INITIAL COMMENTS - FREE TEXT/NARRATIVE: This patient is a pleasant 52 year old male that presents to the ER. 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 He reports feeling nauseated when he got the headache. He reports that upon arrival here to the ER he vomited x1. Patent reports that he had a headache like this a couple of weeks ago and was told it was due to hypertension. The patient reports he is also being treated for yeast and cellulitis to the lower abdomen. The patient is alert and oriented. The patient denies neck pain, neck tiffness, cp, soa, abd pain, urinary/bowel changes. Denies unilateral weaknesses. Denies generalized weakness. Onset: Today Onset Date: 11/21/17 Onset Time: 14:30 Duration: Minutes: (45) Location: Reports: Head Front/Back Body Image: 1 - headache Quality: Reports: Pressure, Sharp Severity: Moderate Improves with: Reports: None Worsens with: Reports: None Associated Symptoms: Reports: Headaches, Nausea/Vomiting. Denies: Confusion, Chest Pain, Cough, cough w sputum, Diaphoresis, Fever/Chills, Loss of Appetite, Malaise, Rash, Seizure, Shortness of Breath, Syncope, Weakness Headache Pain Score (Numeric/FACES): 6 - Related Data Allergies Allergy/AdvReac Type Severity Reaction Status Date / Time sulfamethoxazole Allergy Shortness Verified 11/21/17 15:26 [From Bactrim] of Breath trimethoprim [From Bactrim] Allergy Shortness Verified 11/21/17 15:26 of Breath Home Meds: Home Meds Acetaminophen [Tylenol] 650 mg PO Q4H PRN 04/24/13 [History] Ascorbic Acid [Vitamin C] 500 mg PO BID 04/24/13 [History] Atenolol [Tenormin] 50 mg PO DAILY 04/24/13 [History] Famotidine [Pepcid] 20 mg PO BID 04/24/13 [History] Ferrous Sulfate [Iron] 325 mg PO BID 04/24/13 [History] Folic Acid 1 mg PO DAILY 04/24/13 [History] Hydrochlorothiazide 25 mg PO DAILY 04/24/13 [History] Insulin Aspart [NovoLOG] 20 unit SUBCUT WITHLUNCH 04/24/13 [History] Insulin Glarg,Human.Rec.Analog [Lantus] 56 unit SQ BEDTIME 04/24/13 [History] Lisinopril [Zestril] 10 mg PO DAILY 04/24/13 [History] amLODIPine [Norvasc] 10 mg PO DAILY 04/24/13 [History] Magnesium 500 mg PO DAILY 01/27/15 [History] Multivitamin [Multivitamins] 1 tab PO DAILY 01/27/15 [History] Cholecalciferol (Vitamin D3) [Vitamin D3] 5,000 unit PO DAILY 09/07/15 [History] metFORMIN HCl [Metformin HCl] 1,000 mg PO BID 01/14/17 [History] Rosuvastatin Calcium 10 mg PO BEDTIME 02/03/17 [History] Albuterol/Ipratropium [DuoNeb 3.0-0.5 MG/3 ML] 1 vial NEB QID PRN 05/24/17 [ History] Liraglutide [Victoza] 1.8 mg SUBCUT DAILY 05/24/17 [History] Liraglutide [Victoza] 1.8 mg SUBCUT DAILY 11/07/17 [History] Past Medical History HEENT History: Reports: Impaired Vision, Other (See Below) Other HEENT History: right hearing loss due to cerumen impaction, TMJ syndrome Cardiovascular History: Reports: High Cholesterol, Hypertension, SOB on Exertion , Other (See Below) Other Cardiovascular History: systolic murmur of aorta Respiratory History: Reports: SOB Gastrointestinal History: Reports: GERD Genitourinary History: Reports: BPH, Chronic Renal Insuffiency, Other (See Below ) Other Genitourinary History: nocturia, low testosterone Musculoskeletal History: Reports: Arthritis, Back Pain, Chronic, Other (See Below) Other Musculoskeletal History: back pain with sciatica Endocrine/Metabolic History: Reports: Diabetes, Type II, Obesity/BMI 30+, Vitamin D Deficiency Hematologic History: Reports: Other (See Below) Other Hematologic History: vitamin D deficiency Dermatologic History: Reports: Other (See Below) Other Dermatologic History: history of candidiasis and cellulitis of umbilicus, hx of inflamed seborrheic keratosis - Infectious Disease History Infectious Disease History: Reports: MRSA - Past Surgical History GI Surgical History: Reports: Other (See Below) Other GI Surgeries/Procedures: panniculectomy Social & Family History - Family History Family Medical History: Noncontributory Endocrine/Metabolic: Reports: Diabetes, type II, Obesity/MBI 30+ - Tobacco Use Smoking Status *Q: Never Smoker - Caffeine Use Caffeine Use: Reports: Soda - Living Situation & Occupation Living situation: Reports: Single Occupation: Unemployed ED ROS GENERAL - Review of Systems Review Of Systems: See Below Constitutional: Reports: No Symptoms HEENT: Reports: No Symptoms Respiratory: Reports: No Symptoms. Denies: Shortness of Breath, Wheezing, Cough Cardiovascular: Reports: No Symptoms. Denies: Chest Pain Endocrine: Reports: No Symptoms GI/Abdominal: Reports: Nausea, Vomiting : Reports: No Symptoms Musculoskeletal: Reports: No Symptoms Skin: Reports: No Symptoms Neurological: Reports: Headache. Denies: Confusion, Dizziness, Numbness, Seizure, Syncope, Tingling, Tremors, Trouble Speaking, Difficulty Walking, Weakness, Change in Speech, Gait Disturbance Psychiatric: Reports: No Symptoms Hematologic/Lymphatic: Reports: No Symptoms Immunologic: Reports: No Symptoms - Physical Exam Exam: See Below Exam Limited By: No Limitations General Appearance: Alert, WD/WN, No Apparent Distress Eye Exam: Bilateral Eye: EOMI, Normal Inspection, PERRL Ears: Normal External Exam, Normal Canal, Hearing Grossly Normal, Normal TMs Nose: Normal Inspection, Normal Mucosa, No Blood Throat/Mouth: Normal Inspection, Normal Lips, Normal Teeth, Normal Gums, Normal Oropharynx, Normal Voice, No Airway Compromise Head Exam: Atraumatic, Normocephalic Neck: Normal Inspection, Supple, Non-Tender, Full Range of Motion Respiratory/Chest: No Respiratory Distress, Lungs Clear, Normal Breath Sounds, No Accessory Muscle Use Cardiovascular: Normal Peripheral Pulses, Regular Rate, Rhythm, No Edema, No Gallop, No JVD, No Murmur, No Rub GI/Abdominal: Normal Bowel Sounds, Soft, Non-Tender, No Distention, No Abnormal Bruit, No Mass, Pelvis Stable, Other (Obese) (Male) Exam: Deferred Rectal (Males) Exam: Deferred Neuro Exam (Abbreviated): Alert, Oriented, CN II-XII Intact, Normal Cognition, Normal Gait, No Motor/Sensory Deficits Back Exam: Normal Inspection, Full Range of Motion Extremities: Normal Inspection, Normal Range of Motion, Non-Tender, No Pedal Edema, Normal Capillary Refill Psychiatric: Normal Affect, Normal Mood Skin Exam: Warm, Dry, Intact, Normal Color, Rash (to the panus. Errythema, white mucous like drainage and yeast to the umbilical and panus folds. Patient reports this is improving with tx from PCP. ) Course - Vital Signs Last Recorded V/S: Last Vital Signs Temp 98.4 F 11/21/17 15:07 Pulse 102 H 11/21/17 15:07 Resp 18 11/21/17 15:07 BP 159/108 H 11/21/17 16:16 Pulse Ox 97 11/21/17 15:07 - Orders/Labs/Meds Orders: Active Orders 24 hr Category Date Time Status Head wo Cont [CT] Stat Exams 11/21/17 15:25 Taken CULTURE BLOOD [BC] Stat Lab 11/21/17 15:45 Received CULTURE BLOOD [BC] Stat Lab 11/21/17 16:00 Received UA W/MICROSCOPIC [URIN] Stat Lab 11/21/17 15:35 Ordered Blood Culture x2 Reflex Set [OM.PC] Stat Oth 11/21/17 15:35 Ordered Labs: Laboratory Tests 11/21/17 11/21/17 11/21/17 Range/Units 15:35 16:10 16:10 WBC 9.4 (5.0-10.0) 10^3/uL RBC 6.06 H (4.50-6.00) 10^6/uL Hgb 16.2 (14.0-18.0) g/dL Hct 49.5 (40.0-54.0) % MCV 81.7 L (82.0-94.0) fL MCH 26.7 L (27.0-32.0) pg MCHC 32.7 L (33.0-38.0) g/dL RDW Coeff of Sophie 15.2 H (11.0-15.0) % Plt Count 212 (150-400) 10^3/uL Neut % (Auto) 75.6 (35-85) % Lymph % (Auto) 16.6 (10-55) % [place] % (Auto) 6.7 (0-16) % Eos % (Auto) 0.7 (0-5) % Baso % (Auto) 0.4 (0-3) % Neut # (Auto) 7.12 H (1.80-7.00) 10^3/uL Lymph # (Auto) 1.56 (1.00-4.80) 10^3/uL [place] # (Auto) 0.63 (0.00-0.80) 10^3/uL Eos # (Auto) 0.07 (0.00-0.45) 10^3/uL Baso # (Auto) 0.04 10^3/uL Sodium 138 (136-145) mEq/L Potassium 4.3 (3.5-5.0) mEq/L Chloride 99 (98-106) mEq/L Carbon Dioxide 34 H (21-32) mmol/L BUN 20 H (7-18) mg/dL Creatinine 1.4 H (0.7-1.3) mg/dL Est Cr Clr Drug Dosing 54.30 mL/min Estimated GFR (MDRD) 53 L (>=60) mL/min Glucose 178 H D (75-99) mg/dL Lactic Acid (0.4-2.0) mmol/L Calcium 9.5 (8.4-10.1) mg/dL Total Bilirubin 0.4 (0.0-1.0) mg/dL AST 21 (15-37) U/L ALT 38 (12-78) U/L Alkaline Phosphatase 103 (46-116) U/L Troponin I < 0.017 (0.00-0.06) ng/mL Total Protein 7.0 (6.4-8.2) g/dL Albumin 3.5 (3.4-5.0) g/dL Urine Color Yellow (YELLOW) Urine Appearance Slightly cloudy (CLEAR) Urine pH 7.5 (4.5-8.0) Ur Specific [place] 1.025 H (1.003-1.020) Urine Protein >=300 H (NEGATIVE) mg/dL Urine Glucose (UA) Negative (NEGATIVE) mg/dL Urine Ketones 15 H (NEGATIVE) mg/dL Urine Occult Blood Negative (NEGATIVE) Urine Nitrite Negative (NEGATIVE) Urine Bilirubin Negative (NEGATIVE) Urine Urobilinogen 0.2 (0.2-1.0) EU/dL Ur Leukocyte Esterase Negative (NEGATIVE) Urine RBC Not seen (0-5) /HPF Urine WBC Not seen (0-5) /HPF Ur Squamous Epith Cells Few H (NOT SEEN) /HPF Amorphous Sediment Few H (NOT SEEN) /HPF 11/21/17 Range/Units 16:10 WBC (5.0-10.0) 10^3/uL RBC (4.50-6.00) 10^6/uL Hgb (14.0-18.0) g/dL Hct (40.0-54.0) % MCV (82.0-94.0) fL MCH (27.0-32.0) pg MCHC (33.0-38.0) g/dL RDW Coeff of Sophie (11.0-15.0) % Plt Count (150-400) 10^3/uL Neut % (Auto) (35-85) % Lymph % (Auto) (10-55) % [place] % (Auto) (0-16) % Eos % (Auto) (0-5) % Baso % (Auto) (0-3) % Neut # (Auto) (1.80-7.00) 10^3/uL Lymph # (Auto) (1.00-4.80) 10^3/uL [place] # (Auto) (0.00-0.80) 10^3/uL Eos # (Auto) (0.00-0.45) 10^3/uL Baso # (Auto) 10^3/uL Sodium (136-145) mEq/L Potassium (3.5-5.0) mEq/L Chloride (98-106) mEq/L Carbon Dioxide (21-32) mmol/L BUN (7-18) mg/dL Creatinine (0.7-1.3) mg/dL Est Cr Clr Drug Dosing mL/min Estimated GFR (MDRD) (>=60) mL/min Glucose (75-99) mg/dL Lactic Acid 1.8 (0.4-2.0) mmol/L Calcium (8.4-10.1) mg/dL Total Bilirubin (0.0-1.0) mg/dL AST (15-37) U/L ALT (12-78) U/L Alkaline Phosphatase (46-116) U/L Troponin I (0.00-0.06) ng/mL Total Protein (6.4-8.2) g/dL Albumin (3.4-5.0) g/dL Urine Color (YELLOW) Urine Appearance (CLEAR) Urine pH (4.5-8.0) Ur Specific [place] (1.003-1.020) Urine Protein (NEGATIVE) mg/dL Urine Glucose (UA) (NEGATIVE) mg/dL Urine Ketones (NEGATIVE) mg/dL Urine Occult Blood (NEGATIVE) Urine Nitrite (NEGATIVE) Urine Bilirubin (NEGATIVE) Urine Urobilinogen (0.2-1.0) EU/dL Ur Leukocyte Esterase (NEGATIVE) Urine RBC (0-5) /HPF Urine WBC (0-5) /HPF Ur Squamous Epith Cells (NOT SEEN) /HPF Amorphous Sediment (NOT SEEN) /HPF Meds: Medications Discontinued Medications Generic Name Dose Route Start Last Admin Trade Name Freq PRN Reason Stop Dose Admin Acetaminophen 1,000 mg 11/21/17 17:16 11/21/17 17:50 Tylenol Extra Strength PO 11/21/17 17:17 1,000 mg ONETIME ONE Administration Sodium Chloride 1,000 mls @ 1,000 mls/hr 11/21/17 15:36 11/21/17 16:35 Normal Saline IV 11/21/17 16:35 1,000 mls/hr .BOLUS ONE Administration Ondansetron HCl 4 mg 11/21/17 15:36 11/21/17 16:30 Zofran IVPUSH 11/21/17 15:37 4 mg NOW STA Administration - Radiology Interpretation Free Text/Narrative:: Head CT: NO acute findings. - Re-Assessments/Exams Free Text/Narrative Re-Assessment/Exam: 11/21/17 17:54 Patient reports his headache feels better. He reports he is feeling better. The patient BP is now 162/84. I will discharge the patient home. He reports that he can see his PCP for a recheck tomorrow afternoon. Stable. Departure - Departure Time of Disposition: 17:56 Disposition: Home, Self-Care 01 Condition: Fair Clinical Impression: Renal insufficiency Headache Qualifiers: Headache type: other headache syndrome Qualified Code(s): G44.89 - Other headache syndrome Hypertension Qualifiers: Hypertension type: essential hypertension Qualified Code(s): I10 - Essential ( primary) hypertension - Discharge Information Instructions: Hypertension, General Headache Without Cause, [id number], Dehydration, Adult, [id number] Referrals: Cristal Allison PA-C [Primary Care Provider] - Forms: ED Department Discharge Additional Instructions: Followup with your primary care provider tomorrow afternoon Return to the ER for worsening of condition or any emergent concerns Increase fluids Tylenol for headache - My Orders Last 24 Hours: My Active Orders 11/21/17 15:25 Head wo Cont [CT] Stat 11/21/17 15:35 UA W/MICROSCOPIC [URIN] Stat Blood Culture x2 Reflex Set [OM.PC] Stat 11/21/17 15:45 CULTURE BLOOD [BC] Stat 11/21/17 16:00 CULTURE BLOOD [BC] Stat - Assessment/Plan Last 24 Hours: My Active Orders 11/21/17 15:25 Head wo Cont [CT] Stat 11/21/17 15:35 UA W/MICROSCOPIC [URIN] Stat Blood Culture x2 Reflex Set [OM.PC] Stat 11/21/17 15:45 CULTURE BLOOD [BC] Stat 11/21/17 16:00 CULTURE BLOOD [BC] Stat Plan: PLEASE SEE RN NOTE FOR PFSH.
[2017-11-21 16:17] VITALS: BP 159/108
[2017-11-21 16:32] LABS: CHLORIDE,CL 99 mEq/L (98-106); SODIUM,NA 138 mEq/L (136-145)
[2017-11-21] MEDS ORDERED: Acetaminophen 500 MG Tab PO ONE (17:16)
== END 2017-11-21 18:33 | disposition home or self-care (01) ==
LOC: CC.ED 15:05
DX: G44.89 Other headache syndrome (principal); I10 Essential (primary) hypertension; N28.9 Disorder of kidney and ureter, unspecified; E78.00 Pure hypercholesterolemia, unspecified; K21.9 Gastro-esophageal reflux disease without esophagitis; E11.9 Type 2 diabetes mellitus without complications; Z88.1 Allergy status to other antibiotic agents; Z88.2 Allergy status to sulfonamides; Z79.899 Other long term (current) drug therapy; Z79.4 Long term (current) use of insulin
CPT/HCPCS: 36415; 70450; 80053; 81001; 83605; 84484; 85025; 87040; 93005; 96361; 96374; 99284; A9270-GY; J2405; J7030

== ENCOUNTER → 2019-03-10 | Day surgery (SDC) | payer MEDICAID ==
[2019-03-10 09:16] VITALS: BP 136/65; PULSE 84
--- NOTE | 2019-03-10 14:47 | OR ---
DATE OF OPERATION: 03/10/2019 PREOPERATIVE DIAGNOSIS: FOLLOWUP POLYPS. POSTOPERATIVE DIAGNOSIS: FOLLOWUP POLYPS. SURGEON: Indra Watson MD PROCEDURE: FULL-LENGTH COLONOSCOPY. ANESTHESIA: MAC. COMPLICATIONS: None. SPECIMEN: None. FINDINGS: 1. Full-length colonoscopy. 2. Extremely poor prep with solid stool throughout. 3. No obvious polyp recurrence. 4. Possibility of missed polyps could not be ruled out. RECOMMENDATIONS: Recommend a 3-year followup. INDICATIONS: The patient had a prior colonoscopy 2 years ago with a large polyp removed from the rectal vault. We recommended a 2-year followup. DESCRIPTION OF PROCEDURE: The patient was prepped and draped, placed in the left lateral decubitus position. A lubricated Olympus colonoscope was inserted, and with relative ease, advanced to the cecum. The patient unfortunately had really thick liquid stool throughout lot of the colon. There were some areas of solid stool. We were able to maneuver the scope around most of these areas pretty easily and get to the cecal pouch, but it was too thick to suction much of the stool. Throughout the length of the colon, I could find no other polyp recurrence, mass, tumor, ulceration, vascular abnormality, or colitis. The rectal vault was filled with almost 50% of stool. I irrigated and suctioned as much as I could. I could not see any obvious polyp recurrence there. Overall, this is a very poor study due to his poor prep. Air was suctioned, scope removed without complication. TIFFANIE/EMILIANO /[id number]
== END ==
LOC: CC.SDS 07:37
PROVIDERS: ATTEND Family Medicine
DX: R19.5 Other fecal abnormalities (principal); I10 Essential (primary) hypertension; I48.0 Paroxysmal atrial fibrillation; E11.9 Type 2 diabetes mellitus without complications; E78.5 Hyperlipidemia, unspecified; E55.9 Vitamin D deficiency, unspecified; E66.01 Morbid (severe) obesity due to excess calories; K21.9 Gastro-esophageal reflux disease without esophagitis; M19.90 Unspecified osteoarthritis, unspecified site; N40.0 Benign prostatic hyperplasia without lower urinary tract symptoms; Z88.1 Allergy status to other antibiotic agents; Z68.43 Body mass index [BMI] 50.0-59.9, adult; Z86.010 Personal history of colon polyps; Z79.4 Long term (current) use of insulin; Z79.01 Long term (current) use of anticoagulants; Z79.899 Other long term (current) drug therapy
CPT/HCPCS: G0121; J2704; J7120

== ENCOUNTER 2019-03-22 13:39 | Inpatient (IN) | payer MEDICAID ==
[2019-03-22 14:19] LABS: CHLORIDE,CL 97 mEq/L (98-106); SODIUM,NA 135 mEq/L (136-145)
[2019-03-22] MEDS ORDERED: Docusate Sodium 100 MG Cap PO PRN (14:44)
[2019-03-22] MEDS ORDERED: Albuterol/Ipratropium 3.0-0.5 MG/3 ML Neb Soln NEB PRN (14:44)
[2019-03-22] MEDS ORDERED: Sodium Chloride 0.9% 10 ML Syringe FLUSH PRN (14:44)
[2019-03-22] MEDS ORDERED: Enoxaparin 40 MG/0.4 ML Syringe SUBCUT SCH (14:45)
[2019-03-22 15:06] LABS: O2 DELIVERY DEVICE ROOM AIR
[2019-03-22 15:23] LABS: BICARBONATE,ARTERIAL 26.4 mm/L (22.0-26.0); O2 SATURATION ARTERIAL 89 % (95-98); PCO2 ARTERIAL 38 mm/Hg0 (35-45); PO2 ARTERIAL 53 mm/Hg (80-100)
[2019-03-22] MEDS: cefTRIAXone 1 GM Vial IVPUSH SCH (15:27)
[2019-03-22] MEDS ORDERED: Ondansetron 4 MG in Sodium Chloride 0.9% 50 ML IV PRN (15:32)
[2019-03-22] MEDS ORDERED: Ondansetron 4 MG/2 ML SDV IVPUSH PRN (15:35)
[2019-03-22] MEDS ORDERED: Acetaminophen 325 MG Tab PO PRN ×2 (15:42→16:44)
[2019-03-22] MEDS: Azithromycin 500 MG in Sodium Chloride 0.9% 250 ML IV SCH (16:03)
[2019-03-22] MEDS: metFORMIN 500 MG Tab PO SCH (18:24)
[2019-03-22] MEDS: Simvastatin 40 MG Tab PO SCH (19:55)
[2019-03-22] MEDS: Ferrous Sulfate 324 MG Tab.EC PO SCH (19:55)
[2019-03-22] MEDS: Famotidine 20 MG Tab PO SCH (19:55)
[2019-03-22] MEDS: Albuterol/Ipratropium 3.0-0.5 MG/3 ML Neb Soln NEB SCH (19:58)
[2019-03-22] MEDS: Insulin Glargine,Human Rec. Analog 100 Units/ML 3 ML Pen SUBCUT SCH (20:21)
[2019-03-23 07:24] LABS: CHLORIDE,CL 99 mEq/L (98-106); SODIUM,NA 137 mEq/L (136-145)
[2019-03-23] MEDS: Lisinopril 10 MG Tab PO SCH (07:59)
[2019-03-23] MEDS: Albuterol/Ipratropium 3.0-0.5 MG/3 ML Neb Soln NEB SCH ×4 (07:59→19:42)
[2019-03-23] MEDS: Famotidine 20 MG Tab PO SCH ×2 (07:59→19:42)
[2019-03-23] MEDS: Atenolol 50 MG Tab PO SCH (08:00)
[2019-03-23] MEDS: Ferrous Sulfate 324 MG Tab.EC PO SCH ×2 (08:00→19:42)
[2019-03-23] MEDS: metFORMIN 500 MG Tab PO SCH ×2 (08:00→17:52)
[2019-03-23] MEDS: Folic Acid 1 MG Tab PO SCH (08:01)
[2019-03-23] MEDS: amLODIPine 10 MG Tab PO SCH (08:01)
[2019-03-23] MEDS: Hydrochlorothiazide 25 MG Tab PO SCH (08:01)
[2019-03-23] MEDS ORDERED: Insulin Lispro 100 Units/ML 3 ML Vial SUBCUT SCH (12:00)
[2019-03-23] MEDS: Insulin Lispro 100 Units/ML 3 ML Vial SUBCUT SCH (12:39)
[2019-03-23] MEDS: LIRAGLUTIDE 1.8 MG SUBCUT SCH (14:44)
[2019-03-23] MEDS: cefTRIAXone 1 GM Vial IVPUSH SCH (14:51)
[2019-03-23] MEDS: Azithromycin 500 MG in Sodium Chloride 0.9% 250 ML IV SCH (14:52)
--- NOTE | 2019-03-23 18:39 | PCM.PN ---
- General Info Date of Service: 03/23/19 Admission Dx/Problem (Free Text): Left upper lobe pneumonia Functional Status: Reports: Pain Controlled, Tolerating Diet, Ambulating - Review of Systems General: Reports: Weakness, Fatigue, Malaise. Denies: Fever HEENT: Denies: Ear Pain, Sinus Congestion, Sore Throat Pulmonary: Reports: Shortness of Breath (with exertion), Cough. Denies: Sputum Cardiovascular: Reports: Edema. Denies: Chest Pain, Lightheadedness Gastrointestinal: Denies: Abdominal Pain, Nausea, Vomiting Genitourinary: Reports: No Symptoms Musculoskeletal: Reports: No Symptoms Skin: Reports: No Symptoms Neurological: Reports: No Symptoms - Patient Data Vitals - Most Recent: Last Vital Signs Temp 97.7 F 03/23/19 16:26 Pulse 63 03/23/19 16:26 Resp 18 03/23/19 16:26 BP 124/55 L 03/23/19 16:26 Pulse Ox 97 03/23/19 16:26 Weight - Most Recent: 324 lb 14.4 oz Lab Results Last 24 Hours: Laboratory Results - last 24 hr 03/22/19 03/22/19 03/23/19 Range/Units 17:09 20:22 07:00 WBC 5.5 (5.0-10.0) 10^3/uL RBC 5.09 (4.50-6.00) 10^6/uL Hgb 13.6 L (14.0-18.0) g/dL Hct 41.7 (40.0-54.0) % MCV 81.9 L (82.0-94.0) fL MCH 26.7 L (27.0-32.0) pg MCHC 32.6 L (33.0-38.0) g/dL RDW Coeff of Sophie 15.2 H (11.0-15.0) % Plt Count 210 (150-400) 10^3/uL Neut % (Auto) 62.1 (35-85) % Lymph % (Auto) 20.6 (10-55) % [place] % (Auto) 13.9 (0-16) % Eos % (Auto) 2.9 (0-5) % Baso % (Auto) 0.5 (0-3) % Neut # (Auto) 3.40 (1.80-7.00) 10^3/uL Lymph # (Auto) 1.13 (1.00-4.80) 10^3/uL Winn # (Auto) 0.76 (0.00-0.80) 10^3/uL Eos # (Auto) 0.16 (0.00-0.45) 10^3/uL Baso # (Auto) 0.03 10^3/uL Sodium (136-145) mEq/L Potassium (3.5-5.0) mEq/L Chloride (98-106) mEq/L Carbon Dioxide (21-32) mmol/L BUN (7-18) mg/dL Creatinine (0.7-1.3) mg/dL Est Cr Clr Drug Dosing mL/min Estimated GFR (MDRD) (>=60) mL/min Glucose (75-99) mg/dL POC Glucose 149 H 166 H (75-105) mg/dl Lactic Acid (0.4-2.0) mmol/L Calcium (8.4-10.1) mg/dL C-Reactive Protein (0.2-0.8) mg/dL 03/23/19 03/23/19 03/23/19 Range/Units 07:00 07:00 07:31 WBC (5.0-10.0) 10^3/uL RBC (4.50-6.00) 10^6/uL Hgb (14.0-18.0) g/dL Hct (40.0-54.0) % MCV (82.0-94.0) fL MCH (27.0-32.0) pg MCHC (33.0-38.0) g/dL RDW Coeff of Sophie (11.0-15.0) % Plt Count (150-400) 10^3/uL Neut % (Auto) (35-85) % Lymph % (Auto) (10-55) % [place] % (Auto) (0-16) % Eos % (Auto) (0-5) % Baso % (Auto) (0-3) % Neut # (Auto) (1.80-7.00) 10^3/uL Lymph # (Auto) (1.00-4.80) 10^3/uL Winn # (Auto) (0.00-0.80) 10^3/uL Eos # (Auto) (0.00-0.45) 10^3/uL Baso # (Auto) 10^3/uL Sodium 137 (136-145) mEq/L Potassium 4.1 (3.5-5.0) mEq/L Chloride 99 (98-106) mEq/L Carbon Dioxide 29 (21-32) mmol/L BUN 15 (7-18) mg/dL Creatinine 0.9 (0.7-1.3) mg/dL Est Cr Clr Drug Dosing 85.66 mL/min Estimated GFR (MDRD) > 60 (>=60) mL/min Glucose 116 H D (75-99) mg/dL POC Glucose 111 H (75-105) mg/dl Lactic Acid 0.9 (0.4-2.0) mmol/L Calcium 8.9 (8.4-10.1) mg/dL C-Reactive Protein 8.2 H (0.2-0.8) mg/dL 03/23/19 Range/Units 12:25 WBC (5.0-10.0) 10^3/uL RBC (4.50-6.00) 10^6/uL Hgb (14.0-18.0) g/dL Hct (40.0-54.0) % MCV (82.0-94.0) fL MCH (27.0-32.0) pg MCHC (33.0-38.0) g/dL RDW Coeff of Sophie (11.0-15.0) % Plt Count (150-400) 10^3/uL Neut % (Auto) (35-85) % Lymph % (Auto) (10-55) % [place] % (Auto) (0-16) % Eos % (Auto) (0-5) % Baso % (Auto) (0-3) % Neut # (Auto) (1.80-7.00) 10^3/uL Lymph # (Auto) (1.00-4.80) 10^3/uL Winn # (Auto) (0.00-0.80) 10^3/uL Eos # (Auto) (0.00-0.45) 10^3/uL Baso # (Auto) 10^3/uL Sodium (136-145) mEq/L Potassium (3.5-5.0) mEq/L Chloride (98-106) mEq/L Carbon Dioxide (21-32) mmol/L BUN (7-18) mg/dL Creatinine (0.7-1.3) mg/dL Est Cr Clr Drug Dosing mL/min Estimated GFR (MDRD) (>=60) mL/min Glucose (75-99) mg/dL POC Glucose 143 H (75-105) mg/dl Lactic Acid (0.4-2.0) mmol/L Calcium (8.4-10.1) mg/dL C-Reactive Protein (0.2-0.8) mg/dL Omar Results Last 24 Hours: Microbiology 03/22/19 15:05 Aerobic Blood Culture - Preliminary Blood - Venous NO GROWTH AFTER 1 DAY Anaerobic Blood Culture - Preliminary NO GROWTH AFTER 1 DAY 03/22/19 15:05 Aerobic Blood Culture - Preliminary Blood NO GROWTH AFTER 1 DAY Anaerobic Blood Culture - Preliminary NO GROWTH AFTER 1 DAY 03/22/19 13:46 Influenza Type A Antigen Screen - Final Nasopharyngeal Swab NEGATIVE INFLUENZA A VIRUS AG REFERENCE RANGE: NEGATIVE Influenza Type B Antigen Screen - Final NEGATIVE INFLUENZA B VIRUS AG REFERENCE RANGE: NEGATIVE Med Orders - Current: Current Medications Acetaminophen (Tylenol) 650 mg PO Q4H PRN PRN Reason: Fever Last Admin: 03/22/19 16:04 Dose: 650 mg Acetaminophen (Tylenol) 650 mg PO Q4H PRN PRN Reason: Pain Albuterol/Ipratropium (Duoneb 3.0-0.5 Mg/3 Ml) 3 ml NEB Q4H PRN PRN Reason: Shortness Of Breath/wheezing Last Admin: 03/22/19 16:21 Dose: 3 ml Albuterol/Ipratropium (Duoneb 3.0-0.5 Mg/3 Ml) 3 ml NEB QIDRT [facility] Last Admin: 03/23/19 16:27 Dose: 3 ml Amlodipine Besylate (Norvasc) 10 mg PO DAILY [facility] Last Admin: 03/23/19 08:01 Dose: 10 mg Atenolol (Tenormin) 50 mg PO DAILY [facility] Last Admin: 03/23/19 08:00 Dose: 50 mg Ceftriaxone Sodium (Rocephin) 1 gm IVPUSH Q24H [facility] Last Admin: 03/23/19 14:51 Dose: 1 gm Docusate Sodium (Colace) 100 mg PO BID PRN PRN Reason: Constipation Famotidine (Pepcid) 20 mg PO BID [facility] Last Admin: 03/23/19 07:59 Dose: 20 mg Ferrous Sulfate (Ferrous Sulfate) 324 mg PO BID [facility] Last Admin: 03/23/19 08:00 Dose: 324 mg Folic Acid (Folic Acid) 1 mg PO DAILY [facility] Last Admin: 03/23/19 08:01 Dose: 1 mg Hydrochlorothiazide (Hydrochlorothiazide) 25 mg PO DAILY [facility] Last Admin: 03/23/19 08:01 Dose: 25 mg Azithromycin 500 mg/ Sodium (Chloride) 250 mls @ 250 mls/hr IV Q24H [facility] Last Admin: 03/23/19 14:52 Dose: 250 mls/hr Insulin Glargine (Lantus Solostar) 60 units SUBCUT BEDTIME [facility] Last Admin: 03/22/19 20:21 Dose: 60 units Insulin Human Lispro (Humalog) 10 unit SUBCUT ACLUNCH [facility] Last Admin: 03/23/19 12:39 Dose: 10 units Lisinopril (Prinivil) 10 mg PO DAILY [facility] Last Admin: 03/23/19 07:59 Dose: 10 mg Magnesium Oxide (Magnesium Oxide) 1,000 mg PO DAILY [facility] Last Admin: 03/23/19 07:58 Dose: 1,000 mg Metformin HCl (Glucophage) 1,000 mg PO BIDMEALS [facility] Last Admin: 03/23/19 17:52 Dose: 1,000 mg Liraglutide [Victoza (] 1.8 MgOwn Med) 1.8 mg SUBCUT DAILY [facility] Last Admin: 03/23/19 14:44 Dose: 1.8 mg Ondansetron HCl (Zofran) 4 mg IVPUSH Q6H PRN PRN Reason: Nausea (Rivaroxaban [ Xarelto] 20 Mg)*Pt Own Med* 0 each PO DAILY [facility] Last Admin: 03/23/19 08:01 Dose: 1 each Simvastatin (Zocor) 40 mg PO BEDTIME [facility] Last Admin: 03/22/19 19:55 Dose: 40 mg Sodium Chloride (Saline Flush) 10 ml FLUSH ASDIRECTED PRN PRN Reason: Keep Vein Open Discontinued Medications Enoxaparin Sodium (Lovenox) 40 mg SUBCUT Q24H [facility] Last Admin: 03/22/19 15:33 Dose: 40 mg Insulin Human Lispro (Humalog) 20 unit SUBCUT WITHLUNCH [facility] Last Admin: 03/23/19 14:20 Dose: Not Given - Exam General: Alert, Oriented HEENT: Mucous Membr. Moist/[place] Neck: Supple Lungs: Decreased Breath Sounds, Wheezing (expiratory wheezing) Cardiovascular: Regular Rate, Regular Rhythm GI/Abdominal Exam: Normal Bowel Sounds, Soft, Non-Tender Extremities: Normal Inspection, Pedal Edema (1-2+) Skin: Warm, Dry - Problem List & Annotations (1) Pneumonia SNOMED Code(s): 723786043 Code(s): J18.9 - PNEUMONIA, UNSPECIFIED ORGANISM Status: Acute Current Visit: Yes Qualifiers: Pneumonia type: due to other aerobic Gram-negative bacteria Laterality: left Lung location: upper lobe of lung Qualified Code(s): J15.6 - Pneumonia due to other Gram-negative bacteria (2) Respiratory distress SNOMED Code(s): 107012400 Code(s): R06.03 - ACUTE RESPIRATORY DISTRESS Status: Acute Priority: High Current Visit: Yes - Problem List Review Problem List Initiated/Reviewed/Updated: Yes - My Orders Last 24 Hours: My Active Orders 03/23/19 12:40 Insulin Lispro [HumaLOG] 10 unit SUBCUT ACLUNCH 03/24/19 05:11 BASIC METABOLIC PANEL,BMP [CHEM] AM C-REACTIVE PROTEIN [CHEM] AM CBC WITH AUTO DIFF [HEME] AM - Assessment Assessment:: KENYA pneumonia - Plan Plan:: Patient admits to feeling weak, has ongoing cough. Cough is dry, nonproductive. Does get short of breath with exertion. Oxygen sat/ABGs did show hypoxemia. Maintaining sats now at 95% on 2 liters. Chest xray report shows consolidation of left upper lobe. WBC remains normal at 5.5, CRP is improved from 12.8 to 8.2. Appetite is good. Will continue with IV Rocephin and Zithromax. Nebulizer treatments. Repeat labs in am.
[2019-03-23] MEDS: Simvastatin 40 MG Tab PO SCH (19:42)
[2019-03-23] MEDS: Insulin Glargine,Human Rec. Analog 100 Units/ML 3 ML Pen SUBCUT SCH (19:46)
[2019-03-24 07:21] LABS: CHLORIDE,CL 100 mEq/L (98-106); SODIUM,NA 139 mEq/L (136-145)
[2019-03-24] MEDS: metFORMIN 500 MG Tab PO SCH ×2 (09:21→16:48)
[2019-03-24] MEDS: Albuterol/Ipratropium 3.0-0.5 MG/3 ML Neb Soln NEB SCH ×4 (09:21→20:28)
[2019-03-24] MEDS: Folic Acid 1 MG Tab PO SCH (09:22)
[2019-03-24] MEDS: Hydrochlorothiazide 25 MG Tab PO SCH (09:23)
[2019-03-24] MEDS: Atenolol 50 MG Tab PO SCH (09:23)
[2019-03-24] MEDS: Ferrous Sulfate 324 MG Tab.EC PO SCH ×2 (09:23→20:28)
[2019-03-24] MEDS: Famotidine 20 MG Tab PO SCH ×2 (09:24→20:28)
[2019-03-24] MEDS: Lisinopril 10 MG Tab PO SCH (09:24)
[2019-03-24] MEDS: LIRAGLUTIDE 1.8 MG SUBCUT SCH (09:28)
[2019-03-24] MEDS: amLODIPine 10 MG Tab PO SCH (09:29)
[2019-03-24] MEDS: Insulin Lispro 100 Units/ML 3 ML Vial SUBCUT SCH (12:54)
[2019-03-24] MEDS: guaiFENesin 200 MG Tab PO SCH ×2 (13:00→20:28)
[2019-03-24] MEDS: cefTRIAXone 1 GM Vial IVPUSH SCH (16:47)
[2019-03-24] MEDS: Azithromycin 500 MG in Sodium Chloride 0.9% 250 ML IV SCH (16:47)
--- NOTE | 2019-03-24 19:35 | PCM.PN ---
- General Info Date of Service: 03/24/19 Admission Dx/Problem (Free Text): Left upper lobe pneumonia Functional Status: Reports: Pain Controlled, Tolerating Diet, Ambulating - Review of Systems General: Reports: Weakness, Fatigue, Malaise. Denies: Fever HEENT: Reports: Rhinitis Pulmonary: Reports: Shortness of Breath, Cough, Wheezing. Denies: Sputum Cardiovascular: Reports: Edema. Denies: Chest Pain, Lightheadedness Gastrointestinal: Denies: Abdominal Pain, Nausea, Vomiting Genitourinary: Reports: No Symptoms Musculoskeletal: Reports: No Symptoms Skin: Reports: No Symptoms Neurological: Reports: Weakness - Patient Data Vitals - Most Recent: Last Vital Signs Temp 97.9 F 03/24/19 16:00 Pulse 75 03/24/19 16:00 Resp 18 03/24/19 16:00 BP 130/58 L 03/24/19 16:00 Pulse Ox 93 L 03/24/19 16:00 Weight - Most Recent: 324 lb 14.4 oz Lab Results Last 24 Hours: Laboratory Results - last 24 hr 03/23/19 03/24/19 03/24/19 Range/Units 19:48 00:46 07:03 WBC 4.8 L (5.0-10.0) 10^3/uL RBC 5.07 (4.50-6.00) 10^6/uL Hgb 13.6 L (14.0-18.0) g/dL Hct 41.4 (40.0-54.0) % MCV 81.7 L (82.0-94.0) fL MCH 26.8 L (27.0-32.0) pg MCHC 32.9 L (33.0-38.0) g/dL RDW Coeff of Sophie 15.1 H (11.0-15.0) % Plt Count 225 (150-400) 10^3/uL Neut % (Auto) 60.7 (35-85) % Lymph % (Auto) 23.0 (10-55) % [place] % (Auto) 12.1 (0-16) % Eos % (Auto) 3.6 (0-5) % Baso % (Auto) 0.6 (0-3) % Neut # (Auto) 2.90 (1.80-7.00) 10^3/uL Lymph # (Auto) 1.10 (1.00-4.80) 10^3/uL [place] # (Auto) 0.58 (0.00-0.80) 10^3/uL Eos # (Auto) 0.17 (0.00-0.45) 10^3/uL Baso # (Auto) 0.03 10^3/uL Sodium (136-145) mEq/L Potassium (3.5-5.0) mEq/L Chloride (98-106) mEq/L Carbon Dioxide (21-32) mmol/L BUN (7-18) mg/dL Creatinine (0.7-1.3) mg/dL Est Cr Clr Drug Dosing mL/min Estimated GFR (MDRD) (>=60) mL/min Glucose (75-99) mg/dL POC Glucose 125 H 112 H (75-105) mg/dl Calcium (8.4-10.1) mg/dL C-Reactive Protein (0.2-0.8) mg/dL 03/24/19 03/24/19 03/24/19 Range/Units 07:03 08:09 12:00 WBC (5.0-10.0) 10^3/uL RBC (4.50-6.00) 10^6/uL Hgb (14.0-18.0) g/dL Hct (40.0-54.0) % MCV (82.0-94.0) fL MCH (27.0-32.0) pg MCHC (33.0-38.0) g/dL RDW Coeff of Sophie (11.0-15.0) % Plt Count (150-400) 10^3/uL Neut % (Auto) (35-85) % Lymph % (Auto) (10-55) % [place] % (Auto) (0-16) % Eos % (Auto) (0-5) % Baso % (Auto) (0-3) % Neut # (Auto) (1.80-7.00) 10^3/uL Lymph # (Auto) (1.00-4.80) 10^3/uL [place] # (Auto) (0.00-0.80) 10^3/uL Eos # (Auto) (0.00-0.45) 10^3/uL Baso # (Auto) 10^3/uL Sodium 139 (136-145) mEq/L Potassium 4.3 (3.5-5.0) mEq/L Chloride 100 (98-106) mEq/L Carbon Dioxide 30 (21-32) mmol/L BUN 17 (7-18) mg/dL Creatinine 1.0 (0.7-1.3) mg/dL Est Cr Clr Drug Dosing 77.09 mL/min Estimated GFR (MDRD) > 60 (>=60) mL/min Glucose 152 H D (75-99) mg/dL POC Glucose 142 H 157 H (75-105) mg/dl Calcium 9.3 (8.4-10.1) mg/dL C-Reactive Protein 5.4 H (0.2-0.8) mg/dL 03/24/19 Range/Units 16:54 WBC (5.0-10.0) 10^3/uL RBC (4.50-6.00) 10^6/uL Hgb (14.0-18.0) g/dL Hct (40.0-54.0) % MCV (82.0-94.0) fL MCH (27.0-32.0) pg MCHC (33.0-38.0) g/dL RDW Coeff of Sophie (11.0-15.0) % Plt Count (150-400) 10^3/uL Neut % (Auto) (35-85) % Lymph % (Auto) (10-55) % [place] % (Auto) (0-16) % Eos % (Auto) (0-5) % Baso % (Auto) (0-3) % Neut # (Auto) (1.80-7.00) 10^3/uL Lymph # (Auto) (1.00-4.80) 10^3/uL [place] # (Auto) (0.00-0.80) 10^3/uL Eos # (Auto) (0.00-0.45) 10^3/uL Baso # (Auto) 10^3/uL Sodium (136-145) mEq/L Potassium (3.5-5.0) mEq/L Chloride (98-106) mEq/L Carbon Dioxide (21-32) mmol/L BUN (7-18) mg/dL Creatinine (0.7-1.3) mg/dL Est Cr Clr Drug Dosing mL/min Estimated GFR (MDRD) (>=60) mL/min Glucose (75-99) mg/dL POC Glucose 65 L (75-105) mg/dl Calcium (8.4-10.1) mg/dL C-Reactive Protein (0.2-0.8) mg/dL Omar Results Last 24 Hours: Microbiology 03/22/19 15:05 Aerobic Blood Culture - Preliminary Blood - Venous NO GROWTH AFTER 2 DAYS Anaerobic Blood Culture - Preliminary NO GROWTH AFTER 2 DAYS 03/22/19 15:05 Aerobic Blood Culture - Preliminary Blood NO GROWTH AFTER 2 DAYS Anaerobic Blood Culture - Preliminary NO GROWTH AFTER 2 DAYS Med Orders - Current: Current Medications Acetaminophen (Tylenol) 650 mg PO Q4H PRN PRN Reason: Fever Last Admin: 03/22/19 16:04 Dose: 650 mg Acetaminophen (Tylenol) 650 mg PO Q4H PRN PRN Reason: Pain Albuterol/Ipratropium (Duoneb 3.0-0.5 Mg/3 Ml) 3 ml NEB Q4H PRN PRN Reason: Shortness Of Breath/wheezing Last Admin: 03/22/19 16:21 Dose: 3 ml Albuterol/Ipratropium (Duoneb 3.0-0.5 Mg/3 Ml) 3 ml NEB QIDRT [facility] Last Admin: 03/24/19 16:47 Dose: 3 ml Amlodipine Besylate (Norvasc) 10 mg PO DAILY [facility] Last Admin: 03/24/19 09:29 Dose: 10 mg Atenolol (Tenormin) 50 mg PO DAILY [facility] Last Admin: 03/24/19 09:23 Dose: 50 mg Ceftriaxone Sodium (Rocephin) 1 gm IVPUSH Q24H [facility] Last Admin: 03/24/19 16:47 Dose: 1 gm Docusate Sodium (Colace) 100 mg PO BID PRN PRN Reason: Constipation Famotidine (Pepcid) 20 mg PO BID [facility] Last Admin: 03/24/19 09:24 Dose: 20 mg Ferrous Sulfate (Ferrous Sulfate) 324 mg PO BID [facility] Last Admin: 03/24/19 09:23 Dose: 324 mg Folic Acid (Folic Acid) 1 mg PO DAILY [facility] Last Admin: 03/24/19 09:22 Dose: 1 mg Guaifenesin (Organ-I Nr) 200 mg PO TID [facility] Last Admin: 03/24/19 13:00 Dose: 200 mg Hydrochlorothiazide (Hydrochlorothiazide) 25 mg PO DAILY [facility] Last Admin: 03/24/19 09:23 Dose: 25 mg Azithromycin 500 mg/ Sodium (Chloride) 250 mls @ 250 mls/hr IV Q24H [facility] Last Admin: 03/24/19 16:47 Dose: 250 mls/hr Insulin Glargine (Lantus Solostar) 60 units SUBCUT BEDTIME [facility] Last Admin: 03/23/19 19:46 Dose: 60 units Insulin Human Lispro (Humalog) 10 unit SUBCUT ACLUNCH [facility] Last Admin: 03/24/19 12:54 Dose: 10 units Lisinopril (Prinivil) 10 mg PO DAILY [facility] Last Admin: 03/24/19 09:24 Dose: 10 mg Magnesium Oxide (Magnesium Oxide) 1,000 mg PO DAILY [facility] Last Admin: 03/24/19 09:29 Dose: 1,000 mg Metformin HCl (Glucophage) 1,000 mg PO BIDMEALS [facility] Last Admin: 03/24/19 16:48 Dose: 1,000 mg Liraglutide [Victoza (] 1.8 MgOwn Med) 1.8 mg SUBCUT DAILY [facility] Last Admin: 03/24/19 09:28 Dose: 1.8 mg Ondansetron HCl (Zofran) 4 mg IVPUSH Q6H PRN PRN Reason: Nausea (Rivaroxaban [ Xarelto] 20 Mg)*Pt Own Med* 0 each PO DAILY [facility] Last Admin: 03/24/19 09:30 Dose: 1 each Simvastatin (Zocor) 40 mg PO BEDTIME [facility] Last Admin: 03/23/19 19:42 Dose: 40 mg Sodium Chloride (Saline Flush) 10 ml FLUSH ASDIRECTED PRN PRN Reason: Keep Vein Open Discontinued Medications Enoxaparin Sodium (Lovenox) 40 mg SUBCUT Q24H [facility] Last Admin: 03/22/19 15:33 Dose: 40 mg Insulin Human Lispro (Humalog) 20 unit SUBCUT WITHLUNCH [facility] Last Admin: 03/23/19 14:20 Dose: Not Given - Exam General: Alert, Oriented HEENT: Mucous Membr. Moist/[place] Neck: Supple Lungs: Decreased Breath Sounds, Wheezing Cardiovascular: Regular Rate, Regular Rhythm GI/Abdominal Exam: Normal Bowel Sounds, Soft, Non-Tender Extremities: Pedal Edema (1+) Skin: Warm, Dry Neurological: No New Focal Deficit - Problem List & Annotations (1) Pneumonia SNOMED Code(s): 378582391 Code(s): J18.9 - PNEUMONIA, UNSPECIFIED ORGANISM Status: Acute Current Visit: Yes Qualifiers: Pneumonia type: due to other aerobic Gram-negative bacteria Laterality: left Lung location: upper lobe of lung Qualified Code(s): J15.6 - Pneumonia due to other Gram-negative bacteria (2) Respiratory distress SNOMED Code(s): 524755048 Code(s): R06.03 - ACUTE RESPIRATORY DISTRESS Status: Acute Priority: High Current Visit: Yes - Problem List Review Problem List Initiated/Reviewed/Updated: Yes - My Orders Last 24 Hours: My Active Orders 03/24/19 14:00 guaiFENesin [Organ-I NR] 200 mg PO TID - Assessment Assessment:: KENYA pneumonia - Plan Plan:: Patient admits to feeling weak, has ongoing cough. Cough is dry, nonproductive. Does get short of breath with exertion. Oxygen sat/ABGs did show hypoxemia. Maintaining sats now at 95% on 2 liters. Chest xray report shows consolidation of left upper lobe. WBC remains normal at 5.5, CRP is improved from 12.8 to 8.2. Appetite is good. Will continue with IV Rocephin and Zithromax. Nebulizer treatments. Repeat labs in am. 03-24-2019 Patient still notes shortness of breath, especially with exertion. More wheezing today. Still requires 2 liters of oxygen this am as did drop to 87% on room air. Cough moist but nonproductive, states unable to expectorate. WBC remains normal at 4.8, CRP improved to 5.4. Edema 1+. Continue with IV Rocephin and Zithromax. Nebulizer treatments. Continue to try to wean off oxygen. Will add Mucinex. Repeat labs in am.
[2019-03-24] MEDS: Simvastatin 40 MG Tab PO SCH (20:28)
[2019-03-24] MEDS: Insulin Glargine,Human Rec. Analog 100 Units/ML 3 ML Pen SUBCUT SCH (22:07)
[2019-03-25] MEDS: Folic Acid 1 MG Tab PO SCH (07:40)
[2019-03-25] MEDS: Albuterol/Ipratropium 3.0-0.5 MG/3 ML Neb Soln NEB SCH ×4 (07:40→20:16)
[2019-03-25] MEDS: Atenolol 50 MG Tab PO SCH (07:40)
[2019-03-25] MEDS: Ferrous Sulfate 324 MG Tab.EC PO SCH ×2 (07:41→20:16)
[2019-03-25] MEDS: Lisinopril 10 MG Tab PO SCH (07:41)
[2019-03-25] MEDS: guaiFENesin 200 MG Tab PO SCH ×3 (07:41→20:16)
[2019-03-25] MEDS: amLODIPine 10 MG Tab PO SCH (07:41)
[2019-03-25] MEDS: Famotidine 20 MG Tab PO SCH ×2 (07:41→20:16)
[2019-03-25] MEDS: metFORMIN 500 MG Tab PO SCH ×2 (07:41→18:23)
[2019-03-25] MEDS: Hydrochlorothiazide 25 MG Tab PO SCH (07:42)
[2019-03-25] MEDS: LIRAGLUTIDE 1.8 MG SUBCUT SCH (07:44)
[2019-03-25 07:48] LABS: CHLORIDE,CL 101 mEq/L (98-106); SODIUM,NA 138 mEq/L (136-145)
[2019-03-25] MEDS: Insulin Lispro 100 Units/ML 3 ML Vial SUBCUT SCH (13:02)
[2019-03-25] MEDS: cefTRIAXone 1 GM Vial IVPUSH SCH (15:21)
[2019-03-25] MEDS: Azithromycin 500 MG in Sodium Chloride 0.9% 250 ML IV SCH (15:21)
--- NOTE | 2019-03-25 16:05 | PCM.PN ---
- General Info Date of Service: 03/25/19 Functional Status: Reports: Pain Controlled, Tolerating Diet, Ambulating, Urinating - Review of Systems General: Reports: No Symptoms. Denies: Fever HEENT: Reports: No Symptoms Pulmonary: Reports: Shortness of Breath (mild, but improving), Cough, Sputum, Wheezing Cardiovascular: Reports: No Symptoms Gastrointestinal: Reports: No Symptoms Genitourinary: Reports: No Symptoms Musculoskeletal: Reports: No Symptoms Skin: Reports: No Symptoms Neurological: Reports: No Symptoms Psychiatric: Reports: No Symptoms - Patient Data Vitals - Most Recent: Last Vital Signs Temp 97.2 F 03/25/19 15:22 Pulse 88 03/25/19 15:22 Resp 18 03/25/19 15:22 BP 141/67 H 03/25/19 15:22 Pulse Ox 94 L 03/25/19 15:22 Weight - Most Recent: 324 lb 14.4 oz Lab Results Last 24 Hours: Laboratory Results - last 24 hr 03/24/19 03/24/19 03/25/19 Range/Units 16:54 20:23 06:55 WBC 6.0 (5.0-10.0) 10^3/uL RBC 5.19 (4.50-6.00) 10^6/uL Hgb 13.9 L (14.0-18.0) g/dL Hct 42.7 (40.0-54.0) % MCV 82.3 (82.0-94.0) fL MCH 26.8 L (27.0-32.0) pg MCHC 32.6 L (33.0-38.0) g/dL RDW Coeff of Sophie 15.1 H (11.0-15.0) % Plt Count 243 (150-400) 10^3/uL Neut % (Auto) 64.7 (35-85) % Lymph % (Auto) 22.4 (10-55) % Moffat % (Auto) 10.0 (0-16) % Eos % (Auto) 2.2 (0-5) % Baso % (Auto) 0.7 (0-3) % Neut # (Auto) 3.87 (1.80-7.00) 10^3/uL Lymph # (Auto) 1.34 (1.00-4.80) 10^3/uL Moffat # (Auto) 0.60 (0.00-0.80) 10^3/uL Eos # (Auto) 0.13 (0.00-0.45) 10^3/uL Baso # (Auto) 0.04 10^3/uL Sodium (136-145) mEq/L Potassium (3.5-5.0) mEq/L Chloride (98-106) mEq/L Carbon Dioxide (21-32) mmol/L BUN (7-18) mg/dL Creatinine (0.7-1.3) mg/dL Est Cr Clr Drug Dosing mL/min Estimated GFR (MDRD) (>=60) mL/min Glucose (75-99) mg/dL POC Glucose 65 L 105 (75-105) mg/dl Calcium (8.4-10.1) mg/dL Total Bilirubin (0.0-1.0) mg/dL AST (15-37) U/L ALT (12-78) U/L Alkaline Phosphatase (46-116) U/L C-Reactive Protein (0.2-0.8) mg/dL Total Protein (6.4-8.2) g/dL Albumin (3.4-5.0) g/dL 03/25/19 03/25/19 Range/Units 06:55 07:35 WBC (5.0-10.0) 10^3/uL RBC (4.50-6.00) 10^6/uL Hgb (14.0-18.0) g/dL Hct (40.0-54.0) % MCV (82.0-94.0) fL MCH (27.0-32.0) pg MCHC (33.0-38.0) g/dL RDW Coeff of Sophie (11.0-15.0) % Plt Count (150-400) 10^3/uL Neut % (Auto) (35-85) % Lymph % (Auto) (10-55) % Moffat % (Auto) (0-16) % Eos % (Auto) (0-5) % Baso % (Auto) (0-3) % Neut # (Auto) (1.80-7.00) 10^3/uL Lymph # (Auto) (1.00-4.80) 10^3/uL Moffat # (Auto) (0.00-0.80) 10^3/uL Eos # (Auto) (0.00-0.45) 10^3/uL Baso # (Auto) 10^3/uL Sodium 138 (136-145) mEq/L Potassium 4.0 (3.5-5.0) mEq/L Chloride 101 (98-106) mEq/L Carbon Dioxide 29 (21-32) mmol/L BUN 17 (7-18) mg/dL Creatinine 1.0 (0.7-1.3) mg/dL Est Cr Clr Drug Dosing 77.09 mL/min Estimated GFR (MDRD) > 60 (>=60) mL/min Glucose 112 H D (75-99) mg/dL POC Glucose 113 H (75-105) mg/dl Calcium 9.5 (8.4-10.1) mg/dL Total Bilirubin 0.5 (0.0-1.0) mg/dL AST 44 H (15-37) U/L ALT 41 (12-78) U/L Alkaline Phosphatase 102 (46-116) U/L C-Reactive Protein 3.6 H (0.2-0.8) mg/dL Total Protein 7.0 (6.4-8.2) g/dL Albumin 2.9 L (3.4-5.0) g/dL Omar Results Last 24 Hours: Microbiology 03/22/19 15:05 Aerobic Blood Culture - Preliminary Blood - Venous NO GROWTH AFTER 3 DAYS Anaerobic Blood Culture - Preliminary NO GROWTH AFTER 3 DAYS 03/22/19 15:05 Aerobic Blood Culture - Preliminary Blood NO GROWTH AFTER 3 DAYS Anaerobic Blood Culture - Preliminary NO GROWTH AFTER 3 DAYS Med Orders - Current: Current Medications Acetaminophen (Tylenol) 650 mg PO Q4H PRN PRN Reason: Fever Last Admin: 03/22/19 16:04 Dose: 650 mg Acetaminophen (Tylenol) 650 mg PO Q4H PRN PRN Reason: Pain Albuterol/Ipratropium (Duoneb 3.0-0.5 Mg/3 Ml) 3 ml NEB Q4H PRN PRN Reason: Shortness Of Breath/wheezing Last Admin: 03/22/19 16:21 Dose: 3 ml Albuterol/Ipratropium (Duoneb 3.0-0.5 Mg/3 Ml) 3 ml NEB QIDRT BELK[facility] Last Admin: 03/25/19 15:22 Dose: 3 ml Amlodipine Besylate (Norvasc) 10 mg PO DAILY [facility] Last Admin: 03/25/19 07:41 Dose: 10 mg Atenolol (Tenormin) 50 mg PO DAILY [facility] Last Admin: 03/25/19 07:40 Dose: 50 mg Ceftriaxone Sodium (Rocephin) 1 gm IVPUSH Q24H [facility] Last Admin: 03/25/19 15:21 Dose: 1 gm Docusate Sodium (Colace) 100 mg PO BID PRN PRN Reason: Constipation Famotidine (Pepcid) 20 mg PO BID [facility] Last Admin: 03/25/19 07:41 Dose: 20 mg Ferrous Sulfate (Ferrous Sulfate) 324 mg PO BID [facility] Last Admin: 03/25/19 07:41 Dose: 324 mg Folic Acid (Folic Acid) 1 mg PO DAILY [facility] Last Admin: 03/25/19 07:40 Dose: 1 mg Guaifenesin (Organ-I Nr) 200 mg PO TID [facility] Last Admin: 03/25/19 15:21 Dose: 200 mg Hydrochlorothiazide (Hydrochlorothiazide) 25 mg PO DAILY [facility] Last Admin: 03/25/19 07:42 Dose: 25 mg Azithromycin 500 mg/ Sodium (Chloride) 250 mls @ 250 mls/hr IV Q24H [facility] Last Admin: 03/25/19 15:21 Dose: 250 mls/hr Insulin Glargine (Lantus Solostar) 60 units SUBCUT BEDTIME [facility] Last Admin: 03/24/19 22:07 Dose: Not Given Insulin Human Lispro (Humalog) 10 unit SUBCUT ACLUNCH [facility] Last Admin: 03/25/19 13:02 Dose: 10 units Lisinopril (Prinivil) 10 mg PO DAILY [facility] Last Admin: 03/25/19 07:41 Dose: 10 mg Magnesium Oxide (Magnesium Oxide) 1,000 mg PO DAILY [facility] Last Admin: 03/25/19 07:40 Dose: 1,000 mg Metformin HCl (Glucophage) 1,000 mg PO BIDMEALS [facility] Last Admin: 03/25/19 07:41 Dose: 1,000 mg Liraglutide [Victoza (] 1.8 MgOwn Med) 1.8 mg SUBCUT DAILY [facility] Last Admin: 03/25/19 07:44 Dose: 1.8 mg Ondansetron HCl (Zofran) 4 mg IVPUSH Q6H PRN PRN Reason: Nausea (Rivaroxaban [ Xarelto] 20 Mg)*Pt Own Med* 0 each PO DAILY [facility] Last Admin: 03/25/19 07:44 Dose: 1 each Simvastatin (Zocor) 40 mg PO BEDTIME [facility] Last Admin: 03/24/19 20:28 Dose: 40 mg Sodium Chloride (Saline Flush) 10 ml FLUSH ASDIRECTED PRN PRN Reason: Keep Vein Open Discontinued Medications Enoxaparin Sodium (Lovenox) 40 mg SUBCUT Q24H [facility] Last Admin: 03/22/19 15:33 Dose: 40 mg Insulin Human Lispro (Humalog) 20 unit SUBCUT WITHLUNCH [facility] Last Admin: 03/23/19 14:20 Dose: Not Given - Exam General: Alert, Oriented, Cooperative, No Acute Distress Neck: Supple, Trachea Midline, No JVD Lungs: Decreased Breath Sounds (mildly throughout), Wheezing (mild expiratory) Cardiovascular: Regular Rate, Regular Rhythm Back Exam: Normal Inspection Extremities: Normal Inspection, Normal Range of Motion, Non-Tender, No Pedal Edema, Normal Capillary Refill Peripheral Pulses: 2+: Radial (L), Radial (R), Posterior Tibial (L), Posterior Tibial (R) Skin: Warm, Dry, Intact Neurological: No New Focal Deficit, Normal Gait, Normal Speech Psy/Mental Status: Alert, Normal Affect, Normal Mood - Problem List Review Problem List Initiated/Reviewed/Updated: Yes - My Orders Last 24 Hours: My Active Orders 03/26/19 05:00 CBC WITH AUTO DIFF [HEME] DAILY CMP [COMPREHENSIVE METABOLIC PN,CMP] [CHEM] DAILY CRP [C-REACTIVE PROTEIN] [CHEM] DAILY - Assessment Assessment:: KENYA pneumonia - Plan Plan:: Patient admits to feeling weak, has ongoing cough. Cough is dry, nonproductive. Does get short of breath with exertion. Oxygen sat/ABGs did show hypoxemia. Maintaining sats now at 95% on 2 liters. Chest xray report shows consolidation of left upper lobe. WBC remains normal at 5.5, CRP is improved from 12.8 to 8.2. Appetite is good. Will continue with IV Rocephin and Zithromax. Nebulizer treatments. Repeat labs in am. 03-24-2019 Patient still notes shortness of breath, especially with exertion. More wheezing today. Still requires 2 liters of oxygen this am as did drop to 87% on room air. Cough moist but nonproductive, states unable to expectorate. WBC remains normal at 4.8, CRP improved to 5.4. Edema 1+. Continue with IV Rocephin and Zithromax. Nebulizer treatments. Continue to try to wean off oxygen. Will add Mucinex. Repeat labs in am. 03/25/19 0830 Patient was admitted for pneumonia. Patient labs yesterday were wbc 4.8, RA 95% oxygen. Today labs are wbc 6.0, AST 44. Patient reports that he is feeling better today than yesterday. He is up and walking the halls without oxygen. He reports that he feels better after his breathing treatments and moves more air. Patient is not wearing oxygen today. Plan is discharge patient home tomorrow. Will continue abxs and treatments.
[2019-03-25] MEDS: Simvastatin 40 MG Tab PO SCH (20:16)
[2019-03-25] MEDS: Insulin Glargine,Human Rec. Analog 100 Units/ML 3 ML Pen SUBCUT SCH (20:18)
[2019-03-26] MEDS: guaiFENesin 100 MG/5 ML Soln 5 ML UD Cup PO PRN ×2 (00:30→22:00)
[2019-03-26 07:27] LABS: CHLORIDE,CL 101 mEq/L (98-106); SODIUM,NA 138 mEq/L (136-145)
[2019-03-26] MEDS: guaiFENesin 200 MG Tab PO SCH ×3 (08:03→19:17)
[2019-03-26] MEDS: Famotidine 20 MG Tab PO SCH ×2 (08:03→19:17)
[2019-03-26] MEDS: Ferrous Sulfate 324 MG Tab.EC PO SCH ×2 (08:04→19:17)
[2019-03-26] MEDS: Atenolol 50 MG Tab PO SCH (08:04)
[2019-03-26] MEDS: metFORMIN 500 MG Tab PO SCH ×2 (08:04→17:05)
[2019-03-26] MEDS: Lisinopril 10 MG Tab PO SCH (08:04)
[2019-03-26] MEDS: amLODIPine 10 MG Tab PO SCH (08:04)
[2019-03-26] MEDS: Albuterol/Ipratropium 3.0-0.5 MG/3 ML Neb Soln NEB SCH ×4 (08:04→19:18)
[2019-03-26] MEDS: LIRAGLUTIDE 1.8 MG SUBCUT SCH (08:06)
[2019-03-26] MEDS: Folic Acid 1 MG Tab PO SCH (08:06)
[2019-03-26] MEDS: Hydrochlorothiazide 25 MG Tab PO SCH (08:06)
[2019-03-26] MEDS: Insulin Lispro 100 Units/ML 3 ML Vial SUBCUT SCH (11:13)
--- NOTE | 2019-03-26 12:40 | PCM.PN ---
- General Info Date of Service: 03/26/19 Functional Status: Reports: Pain Controlled, Tolerating Diet, Ambulating - Review of Systems General: Reports: No Symptoms. Denies: Fever HEENT: Reports: Sinus Congestion Pulmonary: Reports: Shortness of Breath, Cough, Sputum, Wheezing Cardiovascular: Reports: No Symptoms Gastrointestinal: Reports: No Symptoms Genitourinary: Reports: No Symptoms Musculoskeletal: Reports: No Symptoms Skin: Reports: No Symptoms Neurological: Reports: No Symptoms Psychiatric: Reports: No Symptoms - Patient Data Vitals - Most Recent: Last Vital Signs Temp 98.2 F 03/26/19 11:17 Pulse 78 03/26/19 11:17 Resp 18 03/26/19 11:17 BP 128/66 03/26/19 11:17 Pulse Ox 95 03/26/19 11:17 Weight - Most Recent: 324 lb 14.4 oz Lab Results Last 24 Hours: Laboratory Results - last 24 hr 03/25/19 03/25/19 03/26/19 Range/Units 17:19 19:34 07:00 WBC 7.3 (5.0-10.0) 10^3/uL RBC 5.16 (4.50-6.00) 10^6/uL Hgb 13.7 L (14.0-18.0) g/dL Hct 42.3 (40.0-54.0) % MCV 82.0 (82.0-94.0) fL MCH 26.6 L (27.0-32.0) pg MCHC 32.4 L (33.0-38.0) g/dL RDW Coeff of Sophie 15.0 (11.0-15.0) % Plt Count 281 (150-400) 10^3/uL Neut % (Auto) 70.0 (35-85) % Lymph % (Auto) 19.6 (10-55) % Humphreys % (Auto) 8.2 (0-16) % Eos % (Auto) 1.5 (0-5) % Baso % (Auto) 0.7 (0-3) % Neut # (Auto) 5.13 (1.80-7.00) 10^3/uL Lymph # (Auto) 1.44 (1.00-4.80) 10^3/uL Humphreys # (Auto) 0.60 (0.00-0.80) 10^3/uL Eos # (Auto) 0.11 (0.00-0.45) 10^3/uL Baso # (Auto) 0.05 10^3/uL Sodium (136-145) mEq/L Potassium (3.5-5.0) mEq/L Chloride (98-106) mEq/L Carbon Dioxide (21-32) mmol/L BUN (7-18) mg/dL Creatinine (0.7-1.3) mg/dL Est Cr Clr Drug Dosing mL/min Estimated GFR (MDRD) (>=60) mL/min Glucose (75-99) mg/dL POC Glucose 91 170 H (75-105) mg/dl Calcium (8.4-10.1) mg/dL Total Bilirubin (0.0-1.0) mg/dL AST (15-37) U/L ALT (12-78) U/L Alkaline Phosphatase (46-116) U/L C-Reactive Protein (0.2-0.8) mg/dL Total Protein (6.4-8.2) g/dL Albumin (3.4-5.0) g/dL 03/26/19 03/26/19 03/26/19 Range/Units 07:00 08:59 12:16 WBC (5.0-10.0) 10^3/uL RBC (4.50-6.00) 10^6/uL Hgb (14.0-18.0) g/dL Hct (40.0-54.0) % MCV (82.0-94.0) fL MCH (27.0-32.0) pg MCHC (33.0-38.0) g/dL RDW Coeff of Sophie (11.0-15.0) % Plt Count (150-400) 10^3/uL Neut % (Auto) (35-85) % Lymph % (Auto) (10-55) % Humphreys % (Auto) (0-16) % Eos % (Auto) (0-5) % Baso % (Auto) (0-3) % Neut # (Auto) (1.80-7.00) 10^3/uL Lymph # (Auto) (1.00-4.80) 10^3/uL Humphreys # (Auto) (0.00-0.80) 10^3/uL Eos # (Auto) (0.00-0.45) 10^3/uL Baso # (Auto) 10^3/uL Sodium 138 (136-145) mEq/L Potassium 4.1 (3.5-5.0) mEq/L Chloride 101 (98-106) mEq/L Carbon Dioxide 29 (21-32) mmol/L BUN 16 (7-18) mg/dL Creatinine 1.0 (0.7-1.3) mg/dL Est Cr Clr Drug Dosing 77.09 mL/min Estimated GFR (MDRD) > 60 (>=60) mL/min Glucose 105 H (75-99) mg/dL POC Glucose 102 141 H (75-105) mg/dl Calcium 9.0 (8.4-10.1) mg/dL Total Bilirubin 0.4 (0.0-1.0) mg/dL AST 44 H (15-37) U/L ALT 45 (12-78) U/L Alkaline Phosphatase 99 (46-116) U/L C-Reactive Protein 2.4 H (0.2-0.8) mg/dL Total Protein 7.0 (6.4-8.2) g/dL Albumin 3.0 L (3.4-5.0) g/dL Omar Results Last 24 Hours: Microbiology 03/22/19 15:05 Aerobic Blood Culture - Preliminary Blood - Venous NO GROWTH AFTER 3 DAYS Anaerobic Blood Culture - Preliminary NO GROWTH AFTER 3 DAYS 03/22/19 15:05 Aerobic Blood Culture - Preliminary Blood NO GROWTH AFTER 3 DAYS Anaerobic Blood Culture - Preliminary NO GROWTH AFTER 3 DAYS Med Orders - Current: Current Medications Acetaminophen (Tylenol) 650 mg PO Q4H PRN PRN Reason: Fever Last Admin: 03/22/19 16:04 Dose: 650 mg Acetaminophen (Tylenol) 650 mg PO Q4H PRN PRN Reason: Pain Albuterol/Ipratropium (Duoneb 3.0-0.5 Mg/3 Ml) 3 ml NEB Q4H PRN PRN Reason: Shortness Of Breath/wheezing Last Admin: 03/22/19 16:21 Dose: 3 ml Albuterol/Ipratropium (Duoneb 3.0-0.5 Mg/3 Ml) 3 ml NEB QIDRT [facility] Last Admin: 03/26/19 11:12 Dose: 3 ml Amlodipine Besylate (Norvasc) 10 mg PO DAILY [facility] Last Admin: 03/26/19 08:04 Dose: 10 mg Atenolol (Tenormin) 50 mg PO DAILY [facility] Last Admin: 03/26/19 08:04 Dose: 50 mg Ceftriaxone Sodium (Rocephin) 1 gm IVPUSH Q24H [facility] Last Admin: 03/25/19 15:21 Dose: 1 gm Docusate Sodium (Colace) 100 mg PO BID PRN PRN Reason: Constipation Famotidine (Pepcid) 20 mg PO BID [facility] Last Admin: 03/26/19 08:03 Dose: 20 mg Ferrous Sulfate (Ferrous Sulfate) 324 mg PO BID [facility] Last Admin: 03/26/19 08:04 Dose: 324 mg Folic Acid (Folic Acid) 1 mg PO DAILY [facility] Last Admin: 03/26/19 08:06 Dose: 1 mg Guaifenesin (Organ-I Nr) 200 mg PO TID [facility] Last Admin: 03/26/19 08:03 Dose: 200 mg Guaifenesin (Robitussin) 100 mg PO Q6H PRN PRN Reason: Cough Last Admin: 03/26/19 00:30 Dose: 100 mg Hydrochlorothiazide (Hydrochlorothiazide) 25 mg PO DAILY [facility] Last Admin: 03/26/19 08:06 Dose: 25 mg Azithromycin 500 mg/ Sodium (Chloride) 250 mls @ 250 mls/hr IV Q24H [facility] Last Admin: 03/25/19 15:21 Dose: 250 mls/hr Insulin Glargine (Lantus Solostar) 60 units SUBCUT BEDTIME [facility] Last Admin: 03/25/19 20:18 Dose: 60 units Insulin Human Lispro (Humalog) 10 unit SUBCUT ACLUNCH [facility] Last Admin: 03/26/19 11:13 Dose: 10 units Lisinopril (Prinivil) 10 mg PO DAILY [facility] Last Admin: 03/26/19 08:04 Dose: 10 mg Magnesium Oxide (Magnesium Oxide) 1,000 mg PO DAILY [facility] Last Admin: 03/26/19 08:03 Dose: 1,000 mg Metformin HCl (Glucophage) 1,000 mg PO BIDMEALS [facility] Last Admin: 03/26/19 08:04 Dose: 1,000 mg Liraglutide [Victoza (] 1.8 MgOwn Med) 1.8 mg SUBCUT DAILY [facility] Last Admin: 03/26/19 08:06 Dose: 1.8 mg Ondansetron HCl (Zofran) 4 mg IVPUSH Q6H PRN PRN Reason: Nausea (Rivaroxaban [ Xarelto] 20 Mg)*Pt Own Med* 0 each PO DAILY [facility] Last Admin: 03/26/19 08:06 Dose: 1 each Simvastatin (Zocor) 40 mg PO BEDTIME [facility] Last Admin: 03/25/19 20:16 Dose: 40 mg Sodium Chloride (Saline Flush) 10 ml FLUSH ASDIRECTED PRN PRN Reason: Keep Vein Open Discontinued Medications Enoxaparin Sodium (Lovenox) 40 mg SUBCUT Q24H [facility] Last Admin: 03/22/19 15:33 Dose: 40 mg Insulin Human Lispro (Humalog) 20 unit SUBCUT WITHLUNCH [facility] Last Admin: 03/23/19 14:20 Dose: Not Given - Exam General: Alert, Oriented, Cooperative Neck: Supple, Trachea Midline, No JVD Lungs: Decreased Breath Sounds (throughout), Wheezing (moderately throughout) Cardiovascular: Regular Rate, Regular Rhythm Back Exam: Normal Inspection, Full Range of Motion Extremities: Normal Inspection, Normal Range of Motion, Non-Tender, No Pedal Edema, Normal Capillary Refill Peripheral Pulses: 2+: Radial (L), Radial (R), Posterior Tibial (L), Posterior Tibial (R) Skin: Warm, Dry, Intact Psy/Mental Status: Alert, Normal Affect, Normal Mood - Problem List Review Problem List Initiated/Reviewed/Updated: Yes - My Orders Last 24 Hours: My Active Orders 03/26/19 00:16 guaiFENesin [Robitussin] 100 mg PO Q6H PRN - Assessment Assessment:: KENYA pneumonia - Plan Plan:: Patient admits to feeling weak, has ongoing cough. Cough is dry, nonproductive. Does get short of breath with exertion. Oxygen sat/ABGs did show hypoxemia. Maintaining sats now at 95% on 2 liters. Chest xray report shows consolidation of left upper lobe. WBC remains normal at 5.5, CRP is improved from 12.8 to 8.2. Appetite is good. Will continue with IV Rocephin and Zithromax. Nebulizer treatments. Repeat labs in am. 03-24-2019 Patient still notes shortness of breath, especially with exertion. More wheezing today. Still requires 2 liters of oxygen this am as did drop to 87% on room air. Cough moist but nonproductive, states unable to expectorate. WBC remains normal at 4.8, CRP improved to 5.4. Edema 1+. Continue with IV Rocephin and Zithromax. Nebulizer treatments. Continue to try to wean off oxygen. Will add Mucinex. Repeat labs in am. 03/25/19 0830 Patient was admitted for pneumonia. Patient labs yesterday were wbc 4.8, RA 95% oxygen. Today labs are wbc 6.0, AST 44. Patient reports that he is feeling better today than yesterday. He is up and walking the halls without oxygen. He reports that he feels better after his breathing treatments and moves more air. Patient is not wearing oxygen today. Plan is discharge patient home tomorrow. Will continue abxs and treatments. 03/26/19 1130am The plan was to send the patient home today. However, today the patient lung sounds are more tight and decreased than yesterday. This is also during and right after his breathing treatment. Patient reports since late last night he has been coughing more and was awake most of the night coughing. Patient reports he still feels good, but still short of breath. Labs are unchanged and unremarkable. However, patient clinical presentation warrants no discharge. The plan now will be to keep the patient, continue abx, breathing treatments. Mucinex started.
[2019-03-26] MEDS ORDERED: Azithromycin 500 MG Vial ONE (15:31)
[2019-03-26] MEDS: Azithromycin 500 MG in Sodium Chloride 0.9% 250 ML IV SCH (15:45)
[2019-03-26] MEDS: cefTRIAXone 1 GM Vial IVPUSH SCH (15:45)
--- NOTE | 2019-03-26 19:17 | PCM.SN ---
- Free Text/Narrative Note: Due to patient worsened lung sounds and dyspnea. He reports nonproductive cough. I will CTA chest for PE, pulmonary occlusions, or pulmonary abscess.
[2019-03-26] MEDS: Simvastatin 40 MG Tab PO SCH (19:18)
[2019-03-26] MEDS ORDERED: Iopamidol 755 Mg/ML 200 ML Bottle IV ONE ×2 (19:36→19:38)
[2019-03-26] MEDS: Insulin Glargine,Human Rec. Analog 100 Units/ML 3 ML Pen SUBCUT SCH (20:29)
[2019-03-26] MEDS ORDERED: Levofloxacin/Dextrose 5%-Water 750 MG in Premix Bag 1 BAG IV SCH (21:45)
--- NOTE | 2019-03-26 21:49 | PCM.SN ---
- Free Text/Narrative Note: 03/26/192134 I received CT report from radiologist: Multifocal pneumonia. This is worse than CXR upon admission. Again, the patient showed improvement, then today has worsened. He is more short of breath, not moving much air, has moderate to severe rhonchi throughout. His oxygen saturation 93% RA. This patient has now met criteria for abx changes for risk factors for HCAP. These are hospitalization greater than 2 days, IV abx within 30 days. Therefore, have stopped zithromax and rocephin. Have started Vanc, Zosyn, and Levaquin IV. Will continue acute admit, he is to ill to be discharged or to be swing.
[2019-03-26] MEDS ORDERED: Vancomycin 2 GM in Sodium Chloride 0.9% 500 ML IV ONE (22:00)
[2019-03-26] MEDS: Piperacillin/Tazobactam 4.5 GM in Sodium Chloride 0.9% 100 ML IV SCH (23:28)
[2019-03-27] MEDS: Piperacillin/Tazobactam 4.5 GM in Sodium Chloride 0.9% 100 ML IV SCH ×2 (04:30→10:43)
[2019-03-27] MEDS ORDERED: Vancomycin 1 GM, Vancomycin 250 MG in Sodium Chloride 0.9% 500 ML IV SCH (06:00)
[2019-03-27] MEDS: Albuterol/Ipratropium 3.0-0.5 MG/3 ML Neb Soln NEB SCH (07:56)
[2019-03-27] MEDS: Folic Acid 1 MG Tab PO SCH (07:57)
[2019-03-27] MEDS: Atenolol 50 MG Tab PO SCH (07:57)
[2019-03-27] MEDS: guaiFENesin 200 MG Tab PO SCH (07:57)
[2019-03-27] MEDS: Famotidine 20 MG Tab PO SCH (07:57)
[2019-03-27] MEDS: amLODIPine 10 MG Tab PO SCH (07:58)
[2019-03-27] MEDS: Hydrochlorothiazide 25 MG Tab PO SCH (07:58)
[2019-03-27] MEDS: Lisinopril 10 MG Tab PO SCH (07:58)
[2019-03-27] MEDS: Ferrous Sulfate 324 MG Tab.EC PO SCH (07:58)
[2019-03-27 07:59] VITALS: BP 131/52; PULSE 83
[2019-03-27] MEDS: LIRAGLUTIDE 1.8 MG SUBCUT SCH (08:04)
--- NOTE | 2019-03-27 13:19 | PCM.DCSUM1 ---
Discharge Summary - Hospital Course Free Text/Narrative:: Nathaniel is a 54 year old who presented to clinic to [facility] for increased shortness of breath with exertion, wheezing and fever. Had noted increased exercise intolerance. No chest pain. No orthopnea. Multiple labs done, CBC remained normal but CRP increased at 12.8. ABGs show PO2 of 58, sat at 89% on room air. Chest xray concerning for left upper and lower lobe consolidation. Admitted and started on nebulizer treatments, oxygen, IV Rocephin and Zithromax. Diagnosis: Stroke: No Modified Prasanth Scale: No Symptoms at All Modified Freestone Scale Score: 0 - Discharge Data Discharge Date: 03/27/19 Discharge Disposition: DC/Tfer W/I Hosp To [place] [id number] Condition: Fair - Referral to Home Health Primary Care Physician: Cristal Allison PA-C - Discharge Diagnosis/Problem(s) (1) Pneumonia SNOMED Code(s): 531627945 ICD Code: J18.9 - PNEUMONIA, UNSPECIFIED ORGANISM Status: Acute Qualifiers: Pneumonia type: due to other aerobic Gram-negative bacteria Laterality: left Lung location: upper lobe of lung Qualified Code(s): J15.6 - Pneumonia due to other Gram-negative bacteria (2) Respiratory distress SNOMED Code(s): 459790236 ICD Code: R06.03 - ACUTE RESPIRATORY DISTRESS Status: Acute Priority: High - Patient Summary/Data Complications: none Hospital Course: Patient's symptoms have waxed and waned during acute admission. On admit, required oxygen to maintain sats greater than 90% but was weaned off oxygen on day 2. Lung sound were diminished but clear initially but over the first 48 hours, developed wheezing, cough more moist and had scattered rhonchi throughout. Initially not tolerating activity, improved but worsened again over the weekend. [place] again more short of breath, sats dropped. Oxygen resumed. Due to change in status, CT scan was done that continued to show multifocal infiltrates. IV antibiotics were switched to Zosyn, Vancomycin and Levaquin. Today, patient does still feel short of breath with exertion but states better than yesterday. Has again been weaned off oxygen. [facility], nebulizer treatments. - Patient Instructions Diet: Diabetic Diet Activity: As Tolerated - Discharge Plan *PRESCRIPTION DRUG MONITORING PROGRAM REVIEWED*: No *COPY OF PRESCRIPTION DRUG MONITORING REPORT IN PATIENT MAICO: No Home Medications: Home Meds Acetaminophen [Tylenol] 650 mg PO Q4H PRN 04/24/13 [History] Ascorbic Acid [Vitamin C] 500 mg PO BID 04/24/13 [History] Atenolol [Tenormin] 50 mg PO DAILY 04/24/13 [History] Famotidine [Pepcid] 20 mg PO BID 04/24/13 [History] Ferrous Sulfate [Iron] 325 mg PO BID 04/24/13 [History] Folic Acid 1 mg PO DAILY 04/24/13 [History] Insulin Aspart [NovoLOG] 20 unit SUBCUT WITHLUNCH 04/24/13 [History] Insulin Glarg,Human.Rec.Analog [Lantus] 60 unit SQ BEDTIME 04/24/13 [History] Lisinopril [Zestril] 10 mg PO DAILY 04/24/13 [History] amLODIPine [Norvasc] 10 mg PO DAILY 04/24/13 [History] hydroCHLOROthiazide [Hydrochlorothiazide] 25 mg PO DAILY 04/24/13 [History] Magnesium 1,000 mg PO DAILY 01/27/15 [History] Multivitamin [Multivitamins] 1 tab PO DAILY 01/27/15 [History] Cholecalciferol (Vitamin D3) [Vitamin D3] 5,000 unit PO DAILY 09/07/15 [History] metFORMIN HCl [Metformin HCl] 1,000 mg PO BID 01/14/17 [History] Rosuvastatin Calcium 10 mg PO BEDTIME 02/03/17 [History] Albuterol/Ipratropium [DuoNeb 3.0-0.5 MG/3 ML] 1 vial NEB Q4H PRN 05/24/17 [ History] Liraglutide [Victoza] 1.8 mg SUBCUT DAILY 11/07/17 [History] Rivaroxaban [Xarelto] 20 mg PO DAILY 02/28/19 [History] Patient Handouts: Community-Acquired Pneumonia, Adult - Discharge Summary/Plan Comment DC Time >30 min.: No - General Info Date of Service: 03/27/19 Admission Dx/Problem (Free Text: Left upper lobe pneumonia Functional Status: Reports: Pain Controlled, Tolerating Diet, Ambulating - Review of Systems General: Reports: Weakness, Fatigue HEENT: Reports: No Symptoms, Rhinitis Pulmonary: Reports: Shortness of Breath, Cough. Denies: Sputum Cardiovascular: Reports: Edema. Denies: Chest Pain, Lightheadedness Gastrointestinal: Denies: Abdominal Pain, Nausea, Vomiting Genitourinary: Reports: No Symptoms Musculoskeletal: Reports: No Symptoms Skin: Reports: No Symptoms Neurological: Reports: No Symptoms Psychiatric: Reports: No Symptoms - Patient Data Vitals - Most Recent: Last Vital Signs Temp 97.8 F 03/27/19 08:00 Pulse 83 03/27/19 08:00 Resp 20 03/27/19 08:00 BP 131/52 L 03/27/19 08:00 Pulse Ox 95 03/27/19 08:00 Weight - Most Recent: 324 lb 14.4 oz Lab Results - Last 24 hrs: Laboratory Results - last 24 hr 03/26/19 03/26/19 03/27/19 Range/Units 18:19 20:31 09:03 POC Glucose 91 141 H 124 H (75-105) mg/dl ESTELLE Results - Last 24 hrs: Microbiology 03/22/19 15:05 Aerobic Blood Culture - Preliminary Blood NO GROWTH AFTER 4 DAYS Anaerobic Blood Culture - Preliminary NO GROWTH AFTER 4 DAYS 03/22/19 15:05 Aerobic Blood Culture - Preliminary Blood - Venous NO GROWTH AFTER 4 DAYS Anaerobic Blood Culture - Preliminary NO GROWTH AFTER 4 DAYS Med Orders - Current: Current Medications Discontinued Medications Acetaminophen (Tylenol) 650 mg PO Q4H PRN PRN Reason: Fever Last Admin: 03/22/19 16:04 Dose: 650 mg Acetaminophen (Tylenol) 650 mg PO Q4H PRN PRN Reason: Pain Albuterol/Ipratropium (Duoneb 3.0-0.5 Mg/3 Ml) 3 ml NEB Q4H PRN PRN Reason: Shortness Of Breath/wheezing Last Admin: 03/22/19 16:21 Dose: 3 ml Albuterol/Ipratropium (Duoneb 3.0-0.5 Mg/3 Ml) 3 ml NEB QIDRT [facility] Last Admin: 03/27/19 07:56 Dose: 3 ml Amlodipine Besylate (Norvasc) 10 mg PO DAILY [facility] Last Admin: 03/27/19 07:58 Dose: 10 mg Atenolol (Tenormin) 50 mg PO DAILY [facility] Last Admin: 03/27/19 07:57 Dose: 50 mg Azithromycin (Zithromax) Confirm Administered Dose 500 mg .ROUTE .STK-MED ONE Stop: 03/26/19 15:32 Last Admin: 03/26/19 17:05 Dose: Not Given Ceftriaxone Sodium (Rocephin) 1 gm IVPUSH Q24H [facility] Last Admin: 03/26/19 15:45 Dose: 1 gm Docusate Sodium (Colace) 100 mg PO BID PRN PRN Reason: Constipation Enoxaparin Sodium (Lovenox) 40 mg SUBCUT Q24H [facility] Last Admin: 03/22/19 15:33 Dose: 40 mg Famotidine (Pepcid) 20 mg PO BID [facility] Last Admin: 03/27/19 07:57 Dose: 20 mg Ferrous Sulfate (Ferrous Sulfate) 324 mg PO BID [facility] Last Admin: 03/27/19 07:58 Dose: 324 mg Folic Acid (Folic Acid) 1 mg PO DAILY [facility] Last Admin: 03/27/19 07:57 Dose: 1 mg Guaifenesin (Organ-I Nr) 200 mg PO TID [facility] Last Admin: 03/27/19 07:57 Dose: 200 mg Guaifenesin (Robitussin) 100 mg PO Q6H PRN PRN Reason: Cough Last Admin: 03/26/19 22:00 Dose: 100 mg Hydrochlorothiazide (Hydrochlorothiazide) 25 mg PO DAILY [facility] Last Admin: 03/27/19 07:58 Dose: 25 mg Azithromycin 500 mg/ Sodium (Chloride) 250 mls @ 250 mls/hr IV Q24H [facility] Last Admin: 03/26/19 15:45 Dose: 250 mls/hr Levofloxacin/Dextrose 750 mg/ (Premix) 150 mls @ 100 mls/hr IV DAILY@1999 [facility] Last Admin: 03/26/19 21:58 Dose: 100 mls/hr Piperacillin Sod/Tazobactam (Sod 4.5 gm/ Sodium Chloride) 100 mls @ 200 mls/hr IV Q6H [facility] Last Admin: 03/27/19 10:43 Dose: 200 mls/hr Vancomycin HCl 2 gm/ Sodium (Chloride) 500 mls @ 250 mls/hr IV ONETIME ONE Stop: 03/26/19 23:59 Last Admin: 03/27/19 00:08 Dose: 250 mls/hr Vancomycin HCl 1 gm/Vancomycin HCl 250 mg/ Sodium Chloride 500 mls @ 250 mls/ hr IV Q8H [facility] Last Admin: 03/27/19 06:31 Dose: Not Given Insulin Glargine (Lantus Solostar) 60 units SUBCUT BEDTIME [facility] Last Admin: 03/26/19 20:29 Dose: 60 units Insulin Human Lispro (Humalog) 20 unit SUBCUT WITHLUNCH [facility] Last Admin: 03/23/19 14:20 Dose: Not Given Insulin Human Lispro (Humalog) 10 unit SUBCUT ACLUNCH [facility] Last Admin: 03/26/19 11:13 Dose: 10 units Iopamidol (Isovue-370 (76%)) 200 ml IV ONETIME ONE Stop: 03/26/19 19:37 Last Admin: 03/26/19 19:36 Dose: Not Given Iopamidol (Isovue-370 (76%)) 160 ml IV ONETIME ONE Stop: 03/26/19 19:39 Last Admin: 03/26/19 21:09 Dose: 160 ml Lisinopril (Prinivil) 10 mg PO DAILY [facility] Last Admin: 03/27/19 07:58 Dose: 10 mg Magnesium Oxide (Magnesium Oxide) 1,000 mg PO DAILY [facility] Last Admin: 03/27/19 07:57 Dose: 1,000 mg Metformin HCl (Glucophage) 1,000 mg PO BIDMEALS [facility] Last Admin: 03/26/19 17:05 Dose: 1,000 mg Liraglutide [Victoza (] 1.8 MgOwn Med) 1.8 mg SUBCUT DAILY [facility] Last Admin: 03/27/19 08:04 Dose: 1.8 mg Ondansetron HCl (Zofran) 4 mg IVPUSH Q6H PRN PRN Reason: Nausea (Rivaroxaban [ Xarelto] 20 Mg)*Pt Own Med* 0 each PO DAILY [facility] Last Admin: 03/27/19 07:59 Dose: 1 each Simvastatin (Zocor) 40 mg PO BEDTIME [facility] Last Admin: 03/26/19 19:18 Dose: 40 mg Sodium Chloride (Saline Flush) 10 ml FLUSH ASDIRECTED PRN PRN Reason: Keep Vein Open Vancomycin HCl (Pharmacy To Dose - Vancomycin) 1 dose .XX ASDIRECTED [facility] - Exam General: Reports: Alert, Oriented HEENT: Reports: Mucous Membr. Moist/[place] Neck: Reports: Supple Lungs: Reports: Rhonchi, Wheezing Cardiovascular: Reports: Regular Rate, Regular Rhythm GI/Abdominal Exam: Normal Bowel Sounds, Soft, Non-Tender Extremities: Normal Inspection, Pedal Edema (1+) Skin: Reports: Warm, Dry Neurological: Reports: No New Focal Deficit
== END 2019-03-27 11:22 | disposition swing bed (61) | DRG 177 ==
LOC: CC.MS 13:39 → CC.FCMC 13:39 → CC.MS 14:35 → UNDOADMIN 14:35 → CC.MS 14:44
PROVIDERS: ADMIT Physician Assistant Medical; ATTEND Family Medicine
DX: J15.6 Pneumonia due to other Gram-negative bacteria (principal); J18.1 Lobar pneumonia, unspecified organism; J96.01 Acute respiratory failure with hypoxia; Z68.43 Body mass index [BMI] 50.0-59.9, adult; M19.90 Unspecified osteoarthritis, unspecified site; N40.0 Benign prostatic hyperplasia without lower urinary tract symptoms; K21.9 Gastro-esophageal reflux disease without esophagitis; E78.5 Hyperlipidemia, unspecified; I10 Essential (primary) hypertension; N28.9 Disorder of kidney and ureter, unspecified; E66.01 Morbid (severe) obesity due to excess calories; I48.0 Paroxysmal atrial fibrillation; E11.9 Type 2 diabetes mellitus without complications; Y95 Nosocomial condition; E55.9 Vitamin D deficiency, unspecified; Z79.4 Long term (current) use of insulin; Z79.01 Long term (current) use of anticoagulants; Z86.14 Personal history of Methicillin resistant Staphylococcus aureus infection; Z79.899 Other long term (current) drug therapy; Z88.1 Allergy status to other antibiotic agents; R06.00 Dyspnea, unspecified; R06.02 Shortness of breath; R53.83 Other fatigue; R53.1 Weakness; R05 Cough; R06.2 Wheezing; R50.9 Fever, unspecified
CPT/HCPCS: 36415; 36600; 71046; 71275; 80048; 80053; 82803; 82962; 83605; 83880; 85025; 85379; 86140; 87040; 87804; 93005; 94640; A9270-GY; J0456; J0696; J1650; J1815; J1815-GY; J1956; J2543; J3370; J7040; J7050; J7620-GY; Q9967

== ENCOUNTER 2019-03-27 09:25 | Inpatient (IN) | payer MEDICAID ==
[2019-03-27] MEDS ORDERED: Albuterol/Ipratropium 3.0-0.5 MG/3 ML Neb Soln NEB PRN (11:55)
[2019-03-27] MEDS ORDERED: Sodium Chloride 0.9% 10 ML Syringe FLUSH PRN ×2 (11:55)
[2019-03-27] MEDS ORDERED: Ondansetron 4 MG/2 ML SDV IVPUSH PRN (11:55)
[2019-03-27] MEDS ORDERED: Acetaminophen 325 MG Tab PO PRN ×2 (11:55)
[2019-03-27] MEDS ORDERED: Docusate Sodium 100 MG Cap PO PRN (11:55)
[2019-03-27] MEDS: Albuterol/Ipratropium 3.0-0.5 MG/3 ML Neb Soln NEB SCH ×3 (12:31→20:29)
[2019-03-27] MEDS: Insulin Lispro 100 Units/ML 3 ML Vial SUBCUT SCH (12:33)
[2019-03-27] MEDS: Vancomycin 1 GM, Vancomycin 250 MG in Sodium Chloride 0.9% 500 ML IV SCH ×2 (13:46→22:30)
[2019-03-27] MEDS: guaiFENesin 200 MG Tab PO SCH ×2 (13:46→20:29)
[2019-03-27] MEDS: Piperacillin/Tazobactam 4.5 GM in Sodium Chloride 0.9% 100 ML IV SCH ×2 (16:33→21:57)
[2019-03-27] MEDS: metFORMIN 500 MG Tab PO SCH (18:37)
[2019-03-27] MEDS: Famotidine 20 MG Tab PO SCH (20:29)
[2019-03-27] MEDS: Simvastatin 40 MG Tab PO SCH (20:29)
[2019-03-27] MEDS: Levofloxacin/Dextrose 5%-Water 750 MG in Premix Bag 1 BAG IV SCH (20:29)
[2019-03-27] MEDS: Ferrous Sulfate 324 MG Tab.EC PO SCH (20:29)
[2019-03-27] MEDS: Insulin Glargine,Human Rec. Analog 100 Units/ML 3 ML Pen SUBCUT SCH (20:39)
[2019-03-27] MEDS: guaiFENesin 100 MG/5 ML Soln 5 ML UD Cup PO PRN (20:42)
[2019-03-28] MEDS: Piperacillin/Tazobactam 4.5 GM in Sodium Chloride 0.9% 100 ML IV SCH ×4 (03:33→21:24)
[2019-03-28] MEDS: Ferrous Sulfate 324 MG Tab.EC PO SCH ×2 (08:03→19:42)
[2019-03-28] MEDS: Albuterol/Ipratropium 3.0-0.5 MG/3 ML Neb Soln NEB SCH ×4 (08:03→19:42)
[2019-03-28] MEDS: Folic Acid 1 MG Tab PO SCH (08:04)
[2019-03-28] MEDS: Hydrochlorothiazide 25 MG Tab PO SCH (08:04)
[2019-03-28] MEDS: guaiFENesin 200 MG Tab PO SCH ×3 (08:05→19:42)
[2019-03-28] MEDS: amLODIPine 10 MG Tab PO SCH (08:05)
[2019-03-28] MEDS: Lisinopril 10 MG Tab PO SCH (08:06)
[2019-03-28] MEDS: Famotidine 20 MG Tab PO SCH ×2 (08:06→19:42)
[2019-03-28] MEDS: Atenolol 50 MG Tab PO SCH (08:07)
[2019-03-28] MEDS: RIVAROXABAN 20 MG PO SCH (08:07)
[2019-03-28] MEDS: LIRAGLUTIDE 1.8 MG SUBCUT SCH (08:10)
[2019-03-28] MEDS: Vancomycin 1 GM, Vancomycin 250 MG in Sodium Chloride 0.9% 500 ML IV SCH ×3 (08:18→22:08)
[2019-03-28] MEDS: Insulin Lispro 100 Units/ML 3 ML Vial SUBCUT SCH (11:53)
[2019-03-28] MEDS: Simvastatin 40 MG Tab PO SCH (19:42)
[2019-03-28] MEDS ORDERED: Levofloxacin/Dextrose 5%-Water 150 ML IV ONE (19:46)
[2019-03-28] MEDS: Levofloxacin/Dextrose 5%-Water 750 MG in Premix Bag 1 BAG IV SCH (19:50)
[2019-03-28] MEDS: Insulin Glargine,Human Rec. Analog 100 Units/ML 3 ML Pen SUBCUT SCH (20:30)
[2019-03-28] MEDS: guaiFENesin 100 MG/5 ML Soln 5 ML UD Cup PO PRN (23:57)
[2019-03-29] MEDS: Piperacillin/Tazobactam 4.5 GM in Sodium Chloride 0.9% 100 ML IV SCH ×4 (05:14→21:12)
[2019-03-29] MEDS: Vancomycin 1 GM, Vancomycin 250 MG in Sodium Chloride 0.9% 500 ML IV SCH ×3 (05:54→21:54)
[2019-03-29] MEDS: Folic Acid 1 MG Tab PO SCH (07:44)
[2019-03-29] MEDS: Ferrous Sulfate 324 MG Tab.EC PO SCH ×2 (07:44→19:26)
[2019-03-29] MEDS: Hydrochlorothiazide 25 MG Tab PO SCH (07:45)
[2019-03-29] MEDS: Lisinopril 10 MG Tab PO SCH (07:46)
[2019-03-29] MEDS: Atenolol 50 MG Tab PO SCH (07:47)
[2019-03-29] MEDS: guaiFENesin 200 MG Tab PO SCH ×3 (07:47→19:26)
[2019-03-29] MEDS: Famotidine 20 MG Tab PO SCH ×2 (07:48→19:26)
[2019-03-29] MEDS: amLODIPine 10 MG Tab PO SCH (07:48)
[2019-03-29] MEDS: RIVAROXABAN 20 MG PO SCH (07:49)
[2019-03-29] MEDS: Albuterol/Ipratropium 3.0-0.5 MG/3 ML Neb Soln NEB SCH ×4 (07:49→19:26)
[2019-03-29] MEDS: LIRAGLUTIDE 1.8 MG SUBCUT SCH (08:01)
[2019-03-29] MEDS: metFORMIN 500 MG Tab PO SCH ×2 (08:04→17:20)
[2019-03-29] MEDS: Insulin Lispro 100 Units/ML 3 ML Vial SUBCUT SCH ×3 (11:49→20:42)
[2019-03-29] MEDS: methylPREDNISolone Sodium Succinate 125 MG/2 ML SDV IVPUSH SCH (11:53)
[2019-03-29] MEDS: Simvastatin 40 MG Tab PO SCH (19:26)
[2019-03-29] MEDS: Levofloxacin/Dextrose 5%-Water 750 MG in Premix Bag 1 BAG IV SCH (19:27)
[2019-03-29] MEDS: Insulin Glargine,Human Rec. Analog 100 Units/ML 3 ML Pen SUBCUT SCH (20:43)
[2019-03-30] MEDS: methylPREDNISolone Sodium Succinate 125 MG/2 ML SDV IVPUSH SCH ×3 (00:44→22:22)
[2019-03-30] MEDS: guaiFENesin 100 MG/5 ML Soln 5 ML UD Cup PO PRN ×2 (03:55→21:19)
[2019-03-30] MEDS: Piperacillin/Tazobactam 4.5 GM in Sodium Chloride 0.9% 100 ML IV SCH ×4 (03:56→21:45)
[2019-03-30] MEDS: Vancomycin 1 GM, Vancomycin 250 MG in Sodium Chloride 0.9% 500 ML IV SCH ×3 (05:59→22:25)
[2019-03-30] MEDS: guaiFENesin 200 MG Tab PO SCH ×3 (07:41→19:51)
[2019-03-30] MEDS: Atenolol 50 MG Tab PO SCH (07:41)
[2019-03-30] MEDS: Ferrous Sulfate 324 MG Tab.EC PO SCH ×2 (07:42→19:50)
[2019-03-30] MEDS: amLODIPine 10 MG Tab PO SCH (07:42)
[2019-03-30] MEDS: Lisinopril 10 MG Tab PO SCH (07:42)
[2019-03-30] MEDS: Famotidine 20 MG Tab PO SCH ×2 (07:42→19:51)
[2019-03-30] MEDS: Hydrochlorothiazide 25 MG Tab PO SCH (07:42)
[2019-03-30] MEDS: metFORMIN 500 MG Tab PO SCH ×2 (07:43→17:20)
[2019-03-30] MEDS: Folic Acid 1 MG Tab PO SCH (07:43)
[2019-03-30] MEDS: Albuterol/Ipratropium 3.0-0.5 MG/3 ML Neb Soln NEB SCH ×4 (07:44→19:53)
[2019-03-30] MEDS: LIRAGLUTIDE 1.8 MG SUBCUT SCH (07:44)
[2019-03-30] MEDS: Insulin Lispro 100 Units/ML 3 ML Vial SUBCUT SCH ×4 (07:47→20:20)
[2019-03-30] MEDS: RIVAROXABAN 20 MG PO SCH (07:48)
[2019-03-30] MEDS: Simvastatin 40 MG Tab PO SCH (19:51)
[2019-03-30] MEDS: Levofloxacin/Dextrose 5%-Water 750 MG in Premix Bag 1 BAG IV SCH (19:53)
[2019-03-30] MEDS: Insulin Glargine,Human Rec. Analog 100 Units/ML 3 ML Pen SUBCUT SCH (20:19)
[2019-03-31] MEDS: Piperacillin/Tazobactam 4.5 GM in Sodium Chloride 0.9% 100 ML IV SCH ×4 (04:23→22:00)
[2019-03-31] MEDS: Vancomycin 1 GM, Vancomycin 250 MG in Sodium Chloride 0.9% 500 ML IV SCH (05:49)
[2019-03-31] MEDS: amLODIPine 10 MG Tab PO SCH (07:51)
[2019-03-31] MEDS: guaiFENesin 200 MG Tab PO SCH ×3 (07:51→20:20)
[2019-03-31] MEDS: Hydrochlorothiazide 25 MG Tab PO SCH (07:51)
[2019-03-31] MEDS: Atenolol 50 MG Tab PO SCH (07:51)
[2019-03-31] MEDS: Lisinopril 10 MG Tab PO SCH (07:51)
[2019-03-31] MEDS: Ferrous Sulfate 324 MG Tab.EC PO SCH ×2 (07:52→20:20)
[2019-03-31] MEDS: Folic Acid 1 MG Tab PO SCH (07:52)
[2019-03-31] MEDS: Famotidine 20 MG Tab PO SCH ×2 (07:52→20:20)
[2019-03-31] MEDS: Albuterol/Ipratropium 3.0-0.5 MG/3 ML Neb Soln NEB SCH ×4 (07:52→20:20)
[2019-03-31] MEDS: metFORMIN 500 MG Tab PO SCH ×2 (07:52→17:13)
[2019-03-31] MEDS: RIVAROXABAN 20 MG PO SCH (07:53)
[2019-03-31] MEDS: LIRAGLUTIDE 1.8 MG SUBCUT SCH (07:56)
[2019-03-31] MEDS: Insulin Lispro 100 Units/ML 3 ML Vial SUBCUT SCH ×4 (07:57→20:28)
[2019-03-31] MEDS: methylPREDNISolone Sodium Succinate 125 MG/2 ML SDV IVPUSH SCH ×2 (11:10→23:05)
[2019-03-31] MEDS: Simvastatin 40 MG Tab PO SCH (20:20)
[2019-03-31] MEDS: Levofloxacin/Dextrose 5%-Water 750 MG in Premix Bag 1 BAG IV SCH (20:21)
[2019-03-31] MEDS: Insulin Glargine,Human Rec. Analog 100 Units/ML 3 ML Pen SUBCUT SCH (20:25)
[2019-03-31] MEDS: guaiFENesin 100 MG/5 ML Soln 5 ML UD Cup PO PRN (23:23)
[2019-04-01] MEDS: Piperacillin/Tazobactam 4.5 GM in Sodium Chloride 0.9% 100 ML IV SCH ×4 (04:43→21:54)
[2019-04-01] MEDS: Albuterol/Ipratropium 3.0-0.5 MG/3 ML Neb Soln NEB SCH ×4 (08:19→20:29)
[2019-04-01] MEDS: Insulin Lispro 100 Units/ML 3 ML Vial SUBCUT SCH ×4 (08:19→20:36)
[2019-04-01] MEDS: LIRAGLUTIDE 1.8 MG SUBCUT SCH (08:20)
[2019-04-01] MEDS: guaiFENesin 200 MG Tab PO SCH ×3 (08:21→20:29)
[2019-04-01] MEDS: Famotidine 20 MG Tab PO SCH ×2 (08:21→20:30)
[2019-04-01] MEDS: amLODIPine 10 MG Tab PO SCH (08:21)
[2019-04-01] MEDS: metFORMIN 500 MG Tab PO SCH ×2 (08:22→17:00)
[2019-04-01] MEDS: Folic Acid 1 MG Tab PO SCH (08:22)
[2019-04-01] MEDS: Ferrous Sulfate 324 MG Tab.EC PO SCH ×2 (08:22→20:29)
[2019-04-01] MEDS: Atenolol 50 MG Tab PO SCH (08:22)
[2019-04-01] MEDS: RIVAROXABAN 20 MG PO SCH (08:22)
[2019-04-01] MEDS: Hydrochlorothiazide 25 MG Tab PO SCH (08:22)
[2019-04-01] MEDS: Lisinopril 10 MG Tab PO SCH (08:22)
[2019-04-01] MEDS: methylPREDNISolone Sodium Succinate 125 MG/2 ML SDV IVPUSH SCH ×2 (10:23→23:09)
[2019-04-01] MEDS: Simvastatin 40 MG Tab PO SCH (20:29)
[2019-04-01] MEDS: Levofloxacin/Dextrose 5%-Water 750 MG in Premix Bag 1 BAG IV SCH (20:35)
[2019-04-01] MEDS: Insulin Glargine,Human Rec. Analog 100 Units/ML 3 ML Pen SUBCUT SCH (20:36)
[2019-04-02] MEDS: Piperacillin/Tazobactam 4.5 GM in Sodium Chloride 0.9% 100 ML IV SCH ×4 (04:36→22:20)
[2019-04-02] MEDS: Albuterol/Ipratropium 3.0-0.5 MG/3 ML Neb Soln NEB SCH ×4 (07:58→19:52)
[2019-04-02] MEDS: Lisinopril 10 MG Tab PO SCH (07:59)
[2019-04-02] MEDS: amLODIPine 10 MG Tab PO SCH (07:59)
[2019-04-02] MEDS: guaiFENesin 200 MG Tab PO SCH ×3 (07:59→19:51)
[2019-04-02] MEDS: Hydrochlorothiazide 25 MG Tab PO SCH (08:00)
[2019-04-02] MEDS: Atenolol 50 MG Tab PO SCH (08:00)
[2019-04-02] MEDS: Ferrous Sulfate 324 MG Tab.EC PO SCH ×2 (08:00→19:51)
[2019-04-02] MEDS: Famotidine 20 MG Tab PO SCH ×2 (08:00→19:51)
[2019-04-02] MEDS: metFORMIN 500 MG Tab PO SCH ×2 (08:01→17:11)
[2019-04-02] MEDS: Folic Acid 1 MG Tab PO SCH (08:01)
[2019-04-02] MEDS: Insulin Lispro 100 Units/ML 3 ML Vial SUBCUT SCH ×4 (08:02→20:07)
[2019-04-02] MEDS: LIRAGLUTIDE 1.8 MG SUBCUT SCH (08:03)
[2019-04-02] MEDS: RIVAROXABAN 20 MG PO SCH (08:05)
[2019-04-02] MEDS: methylPREDNISolone Sodium Succinate 125 MG/2 ML SDV IVPUSH SCH ×2 (11:43→23:35)
[2019-04-02] MEDS: Simvastatin 40 MG Tab PO SCH (19:51)
[2019-04-02] MEDS: Levofloxacin/Dextrose 5%-Water 750 MG in Premix Bag 1 BAG IV SCH (19:52)
[2019-04-02] MEDS: Insulin Glargine,Human Rec. Analog 100 Units/ML 3 ML Pen SUBCUT SCH (20:05)
[2019-04-03] MEDS: Piperacillin/Tazobactam 4.5 GM in Sodium Chloride 0.9% 100 ML IV SCH (04:02)
[2019-04-03] MEDS: Albuterol/Ipratropium 3.0-0.5 MG/3 ML Neb Soln NEB SCH (07:46)
[2019-04-03] MEDS: LIRAGLUTIDE 1.8 MG SUBCUT SCH (07:47)
[2019-04-03] MEDS: RIVAROXABAN 20 MG PO SCH (07:48)
[2019-04-03] MEDS: Insulin Lispro 100 Units/ML 3 ML Vial SUBCUT SCH (07:49)
[2019-04-03] MEDS: Lisinopril 10 MG Tab PO SCH (07:50)
[2019-04-03] MEDS: guaiFENesin 200 MG Tab PO SCH (07:50)
[2019-04-03] MEDS: metFORMIN 500 MG Tab PO SCH (07:51)
[2019-04-03] MEDS: Ferrous Sulfate 324 MG Tab.EC PO SCH (07:51)
[2019-04-03] MEDS: amLODIPine 10 MG Tab PO SCH (07:51)
[2019-04-03] MEDS: Hydrochlorothiazide 25 MG Tab PO SCH (07:51)
[2019-04-03] MEDS: Famotidine 20 MG Tab PO SCH (07:53)
[2019-04-03] MEDS: Folic Acid 1 MG Tab PO SCH (07:54)
[2019-04-03] MEDS: Atenolol 50 MG Tab PO SCH (07:54)
[2019-04-03 07:55] VITALS: BP 135/47; PULSE 70
[2019-04-03] MEDS ORDERED: FLU Vacc QS2019-20(6MOS UP)/PF 60 MCG/0.5 ML Vial IM ONE (10:20)
--- NOTE | 2019-04-03 21:26 | PCM.DCSUM1 ---
Discharge Summary - Hospital Course Free Text/Narrative:: Nathaniel is a 54 year old who presented to clinic to [facility] for increased shortness of breath with exertion, wheezing and fever. Had noted increased exercise intolerance. No chest pain. No orthopnea. Multiple labs done, CBC remained normal but CRP increased at 12.8. ABGs show PO2 of 58, sat at 89% on room air. Chest xray concerning for left upper and lower lobe consolidation. Admitted and started on nebulizer treatments, oxygen, IV Rocephin and Zithromax. During acute inpatient stay, patient lung status worsened. CT scan was done and showed multifocal consolidations. Was switched to Levaquin, Vancomycin and Zosyn. Oxygen as needed to keep sats over 90%. Labs stable, improving each day. Transferred to swing bed for ongoing IV antibiotics. Diagnosis: Stroke: No Modified [place] Scale: No Symptoms at All Modified [place] Scale Score: 0 - Discharge Data Discharge Date: 04/03/19 Discharge Disposition: Home, Self-Care 01 Condition: Good - Referral to Home Health Primary Care Physician: Indra Watson MD - Discharge Diagnosis/Problem(s) (1) Pneumonia SNOMED Code(s): 274054360 ICD Code: J18.9 - PNEUMONIA, UNSPECIFIED ORGANISM Status: Acute Qualifiers: Pneumonia type: due to other aerobic Gram-negative bacteria Laterality: left Lung location: upper lobe of lung Qualified Code(s): J15.6 - Pneumonia due to other Gram-negative bacteria (2) Renal insufficiency SNOMED Code(s): 343292710, 648296351 ICD Code: N28.9 - DISORDER OF KIDNEY AND URETER, UNSPECIFIED Status: Acute Priority: High (3) Respiratory distress SNOMED Code(s): 631621923 ICD Code: R06.03 - ACUTE RESPIRATORY DISTRESS Status: Acute Priority: High (4) Diabetes mellitus SNOMED Code(s): 42485991 ICD Code: E11.9 - TYPE 2 DIABETES MELLITUS WITHOUT COMPLICATIONS Status: Chronic Priority: Medium - Patient Summary/Data Complications: none Hospital Course: Patient had slow improvement over hospital stay. Had notable wheezing and rhonchi 3 days after admission, ultimately added smart vest for percussion which did help improve air exchange. Required oxygen intermittently through initial days of swing bed. Lung sounds now clear. Oxygen sats greater than 95 % now on room air. Patient is ambulating and tolerating well. Cough has been mostly nonproductive. Labs are all normal now. Has had increase of edema over the last few days, now 2-3+ pitting edema. Will discharge home. Levaquin 500 mg daily for one week. Start Lasix 40 mg daily. Repeat labs in one week, see Cristal Keegan in one week. - Patient Instructions Diet: Diabetic Diet Activity: As Tolerated - Discharge Plan *PRESCRIPTION DRUG MONITORING PROGRAM REVIEWED*: No *COPY OF PRESCRIPTION DRUG MONITORING REPORT IN PATIENT MAICO: No Prescriptions/Med Rec: Furosemide 40 mg PO DAILY #30 tablet Levofloxacin [Levaquin] 500 mg PO DAILY #7 tablet Home Medications: Home Meds Acetaminophen [Tylenol] 650 mg PO Q4H PRN 04/24/13 [History] Ascorbic Acid [Vitamin C] 500 mg PO BID 04/24/13 [History] Atenolol [Tenormin] 50 mg PO DAILY 04/24/13 [History] Famotidine [Pepcid] 20 mg PO BID 04/24/13 [History] Ferrous Sulfate [Iron] 325 mg PO BID 04/24/13 [History] Folic Acid 1 mg PO DAILY 04/24/13 [History] Insulin Aspart [NovoLOG] 20 unit SUBCUT WITHLUNCH 04/24/13 [History] Insulin Glarg,Human.Rec.Analog [Lantus] 60 unit SQ BEDTIME 04/24/13 [History] Lisinopril [Zestril] 10 mg PO DAILY 04/24/13 [History] amLODIPine [Norvasc] 10 mg PO DAILY 04/24/13 [History] hydroCHLOROthiazide [Hydrochlorothiazide] 25 mg PO DAILY 04/24/13 [History] Magnesium 1,000 mg PO DAILY 01/27/15 [History] Multivitamin [Multivitamins] 1 tab PO DAILY 01/27/15 [History] Cholecalciferol (Vitamin D3) [Vitamin D3] 5,000 unit PO DAILY 09/07/15 [History] metFORMIN HCl [Metformin HCl] 1,000 mg PO BID 01/14/17 [History] Rosuvastatin Calcium 10 mg PO BEDTIME 02/03/17 [History] Albuterol/Ipratropium [DuoNeb 3.0-0.5 MG/3 ML] 1 vial NEB Q4H PRN 05/24/17 [ History] Liraglutide [Victoza] 1.8 mg SUBCUT DAILY 11/07/17 [History] Rivaroxaban [Xarelto] 20 mg PO DAILY 02/28/19 [History] Furosemide 40 mg PO DAILY #30 tablet 04/03/19 [Rx] Levofloxacin [Levaquin] 500 mg PO DAILY #7 tablet 04/03/19 [Rx] Referrals: Cristal [facility] PA-C [ED Midlevel Provider] - (Follow up with Cristal Allison in one week, lab prior to appointment) - Discharge Summary/Plan Comment DC Time >30 min.: No - General Info Date of Service: 04/03/19 Admission Dx/Problem (Free Text: Left lobe pneumonia Functional Status: Reports: Pain Controlled, Tolerating Diet, Ambulating - Review of Systems General: Reports: Weakness, Fatigue. Denies: Fever HEENT: Reports: No Symptoms Pulmonary: Reports: Shortness of Breath, Cough. Denies: Sputum Cardiovascular: Reports: Edema. Denies: Chest Pain, Lightheadedness Gastrointestinal: Denies: Abdominal Pain, Nausea, Vomiting Genitourinary: Reports: No Symptoms Musculoskeletal: Reports: No Symptoms Skin: Reports: No Symptoms Neurological: Reports: No Symptoms - Patient Data Vitals - Most Recent: Last Vital Signs Temp 96.2 F 04/03/19 08:00 Pulse 70 04/03/19 08:00 Resp 16 04/03/19 08:00 BP 135/47 L 04/03/19 08:00 Pulse Ox 95 04/03/19 08:00 Weight - Most Recent: 348 lb 1.6 oz Med Orders - Current: Current Medications Vancomycin HCl (Pharmacy To Dose - Vancomycin) 1 dose .XX ASDIRECTED [facility] Discontinued Medications Acetaminophen (Tylenol) 650 mg PO Q4H PRN PRN Reason: Pain/Fever Acetaminophen (Tylenol) 650 mg PO Q4H PRN PRN Reason: Pain Albuterol/Ipratropium (Duoneb 3.0-0.5 Mg/3 Ml) 3 ml NEB Q4H PRN PRN Reason: Shortness Of Breath/wheezing Albuterol/Ipratropium (Duoneb 3.0-0.5 Mg/3 Ml) 3 ml NEB QIDRT [facility] Last Admin: 04/03/19 07:46 Dose: 3 ml Amlodipine Besylate (Norvasc) 10 mg PO DAILY [facility] Last Admin: 04/03/19 07:51 Dose: 10 mg Atenolol (Tenormin) 50 mg PO DAILY [facility] Last Admin: 04/03/19 07:54 Dose: 50 mg Docusate Sodium (Colace) 100 mg PO BID PRN PRN Reason: Constipation Famotidine (Pepcid) 20 mg PO BID [facility] Last Admin: 04/03/19 07:53 Dose: 20 mg Ferrous Sulfate (Ferrous Sulfate) 324 mg PO BID [facility] Last Admin: 04/03/19 07:51 Dose: 324 mg Folic Acid (Folic Acid) 1 mg PO DAILY [facility] Last Admin: 04/03/19 07:54 Dose: 1 mg Guaifenesin (Organ-I Nr) 200 mg PO TID [facility] Last Admin: 04/03/19 07:50 Dose: 200 mg Guaifenesin (Robitussin) 100 mg PO Q6H PRN PRN Reason: Cough Last Admin: 03/31/19 23:23 Dose: 100 mg Hydrochlorothiazide (Hydrochlorothiazide) 25 mg PO DAILY [facility] Last Admin: 04/03/19 07:51 Dose: 25 mg Levofloxacin/Dextrose 750 mg/ (Premix) 150 mls @ 100 mls/hr IV DAILY@1999 [facility] Last Admin: 04/02/19 19:52 Dose: 100 mls/hr Piperacillin Sod/Tazobactam (Sod 4.5 gm/ Sodium Chloride) 100 mls @ 200 mls/hr IV Q6H [facility] Last Admin: 04/03/19 04:02 Dose: 200 mls/hr Vancomycin HCl 1 gm/Vancomycin HCl 250 mg/ Sodium Chloride 500 mls @ 250 mls/ hr IV Q8H [facility] Last Admin: 03/31/19 05:49 Dose: 250 mls/hr Levofloxacin/Dextrose (Levaquin In D5w 750 Mg/150 Ml) Confirm Administered Dose 150 mls @ as directed IV .STK-MED ONE Stop: 03/28/19 19:47 Last Admin: 03/28/19 21:00 Dose: Not Given Vancomycin HCl 1 gm/ Sodium (Chloride) 250 mls @ 167 mls/hr IV Q12H [facility] Last Admin: 04/02/19 23:37 Dose: 167 mls/hr Influenza Virus Vaccine (Pharmacy To Dose - Influenza Vaccine) 1 each IM ONETIME ONE Stop: 04/03/19 10:12 Insulin Glargine (Lantus Solostar) 60 units SUBCUT BEDTIME [facility] Last Admin: 03/28/19 20:30 Dose: Not Given Insulin Glargine (Lantus Solostar) 40 units SUBCUT BEDTIME [facility] Last Admin: 04/02/19 20:05 Dose: 40 units Insulin Human Lispro (Humalog) 10 unit SUBCUT ACLUNCH [facility] Last Admin: 03/28/19 11:53 Dose: 10 units Insulin Human Lispro (Humalog) 0 unit SUBCUT WITHMEALSANDBED [facility]; Protocol Last Admin: 04/03/19 07:49 Dose: 6 units Lisinopril (Prinivil) 10 mg PO DAILY [facility] Last Admin: 04/03/19 07:50 Dose: 10 mg Magnesium Oxide (Magnesium Oxide) 1,000 mg PO DAILY [facility] Last Admin: 04/03/19 07:54 Dose: 1,000 mg Metformin HCl (Glucophage) 1,000 mg PO BIDMEALS [facility] Last Admin: 04/03/19 07:51 Dose: 1,000 mg Methylprednisolone Sodium Succinate (Solu-Medrol) 62.5 mg IVPUSH Q12H [facility] Last Admin: 04/02/19 23:35 Dose: 62.5 mg Liraglutide (Victoza () 1.8 Mg Own Med) 0 mg SUBCUT DAILY [facility] Last Admin: 04/03/19 07:47 Dose: 1.8 mg Ondansetron HCl (Zofran) 4 mg IVPUSH Q6H PRN PRN Reason: Nausea Rivaroxaban (Xarelto ) 20 Mg Tabs Own Med 0 each PO DAILY [facility] Last Admin: 04/03/19 07:48 Dose: 1 each Simvastatin (Zocor) 40 mg PO BEDTIME [facility] Last Admin: 04/02/19 19:51 Dose: 40 mg Sodium Chloride (Saline Flush) 10 ml FLUSH ASDIRECTED PRN PRN Reason: Keep Vein Open Sodium Chloride (Saline Flush) 10 ml FLUSH ASDIRECTED PRN PRN Reason: Keep Vein Open - Exam General: Reports: Alert, Oriented HEENT: Reports: Mucous Membr. Moist/[place] Neck: Reports: Supple Lungs: Reports: Clear to Auscultation, Normal Respiratory Effort Cardiovascular: Reports: Regular Rate, Regular Rhythm GI/Abdominal Exam: Normal Bowel Sounds, Soft, Non-Tender Extremities: Normal Inspection, Pedal Edema (2-3+) Skin: Reports: Warm, Dry Neurological: Reports: No New Focal Deficit
== END 2019-04-03 10:35 | disposition home or self-care (01) | DRG 179 ==
LOC: CC.MS 09:25 → UNDOADMIN 11:22 → CC.MS 11:22
PROVIDERS: ADMIT Family Medicine; ATTEND Family Medicine
DX: J15.6 Pneumonia due to other Gram-negative bacteria (principal); N28.9 Disorder of kidney and ureter, unspecified; E11.9 Type 2 diabetes mellitus without complications; Z79.4 Long term (current) use of insulin; Z79.899 Other long term (current) drug therapy
CPT/HCPCS: 36415; 80048; 80202; 82962; 83880; 85025; 86140; 90686; 94640; 94667; 94668; A9270-GY; J1815-GY; J1956; J2543; J2930; J3370; J7040; J7050; J7620-GY

== ENCOUNTER 2019-04-24 14:49 | Observation (INO) | payer MEDICAID ==
[2019-04-24] MEDS ORDERED: Acetaminophen 325 MG Tab PO PRN (16:30)
[2019-04-24] MEDS ORDERED: Sodium Chloride 0.9% 10 ML Syringe FLUSH PRN (16:30)
[2019-04-24] MEDS ORDERED: Albuterol/Ipratropium 3.0-0.5 MG/3 ML Neb Soln NEB PRN ×2 (16:30→16:37)
[2019-04-24] MEDS: Pantoprazole 40 MG Vial IVPUSH SCH (17:15)
[2019-04-24] MEDS: Levofloxacin/Dextrose 5%-Water 500 MG in Premix Bag 1 BAG IV SCH (17:16)
[2019-04-24] MEDS: methylPREDNISolone Sodium Succinate 125 MG/2 ML SDV IVPUSH SCH (17:16)
[2019-04-24] MEDS: Sodium Chloride 0.9% 1,000 ML IV SCH (17:17)
[2019-04-24] MEDS: Insulin Lispro 100 Units/ML 3 ML Vial SUBCUT SCH ×2 (17:24→20:37)
[2019-04-24] MEDS: Budesonide 0.5 MG/2 ML Neb Susp NEB SCH (19:54)
[2019-04-24] MEDS: Insulin Glargine,Human Rec. Analog 100 Units/ML 3 ML Pen SUBCUT SCH (20:36)
[2019-04-24] MEDS: metFORMIN 500 MG Tab PO SCH (21:20)
[2019-04-25] MEDS: methylPREDNISolone Sodium Succinate 125 MG/2 ML SDV IVPUSH SCH ×2 (04:38→17:04)
[2019-04-25] MEDS: Pantoprazole 40 MG Vial IVPUSH SCH ×2 (04:38→17:03)
[2019-04-25] MEDS: Sodium Chloride 0.9% 1,000 ML IV SCH (07:15)
[2019-04-25] MEDS: Budesonide 0.5 MG/2 ML Neb Susp NEB SCH ×2 (07:17→20:25)
[2019-04-25] MEDS: VICTOZA SUBCUT SCH (07:18)
[2019-04-25] MEDS: Insulin Lispro 100 Units/ML 3 ML Vial SUBCUT SCH ×5 (07:19→20:26)
[2019-04-25] MEDS: XARELTO 20 MG PO SCH (07:20)
[2019-04-25 07:48] LABS: CHLORIDE,CL 103 mEq/L (98-106); SODIUM,NA 140 mEq/L (136-145)
[2019-04-25] MEDS ORDERED: AMLODIPINE 10 MG PO SCH (08:00)
[2019-04-25] MEDS ORDERED: MAGNESIUM 1000 MG PO SCH (08:00)
[2019-04-25] MEDS: metFORMIN 500 MG Tab PO SCH (09:00)
[2019-04-25] MEDS: AMLODIPINE 10 MG PO SCH (10:29)
[2019-04-25] MEDS: HYDROCHLOROTHIAZIDE 25 MG PO SCH (10:31)
[2019-04-25] MEDS: ATENOLOL 50 MG PO SCH (10:34)
[2019-04-25] MEDS: LISINOPRIL 10 MG PO SCH (10:35)
[2019-04-25] MEDS ORDERED: Ferrous Sulfate 324 MG Tab.EC PO SCH (12:00)
[2019-04-25] MEDS: Albuterol/Ipratropium 3.0-0.5 MG/3 ML Neb Soln NEB SCH ×3 (12:21→19:59)
[2019-04-25] MEDS: Folic Acid 1 MG Tab PO SCH (12:51)
--- NOTE | 2019-04-25 13:37 | PN ---
DATE: 04/25/2019 S: Nathaniel is a 54-year-old gentleman who was admitted to the hospital with concerns of bronchitis yesterday. He was started on Levaquin and Solu-Medrol yesterday. Laboratory work on admission did show a white blood count 6500, D- dimer was just slightly elevated at 0.62; however, he just was recently hospitalized for pneumonia. CRP yesterday was 1.6. He states today that he is feeling a little bit better. O2 had been 98% on 2 L. He admits less shortness of breath. Does continue to have a little bit of a cough. Otherwise, he does not feel like he is running any fevers. He does not feel as acutely ill as he did yesterday. O: Vital SIGNS: Blood pressure is 134/66. Again, O2 is 98% on 2 L. Temperature 97.2, pulse is 77, respirations 18. GENERAL: Pleasant cooperative male. He is sitting in the recliner upon my entrance into the room. He does not really appear to be in any distress nor acutely ill. HEENT: Grossly unremarkable. LUNGS: Clear to auscultation. I really did not hear any adventitious sounds. Respirations are equal and nonlabored. CARDIAC: Regular rate and rhythm. No murmurs are noted. EXTREMITIES: He does have bilateral pedal edema noted. ASSESSMENT: ACUTE BRONCHITIS. P: We will continue with Pulmicort inhalers b.i.d. We will continue with nebulizer treatments. We will closely monitor his oxygen saturations to keep above 90%. He will continue IV Levaquin at this point in time. We will discontinue his steroid presently. We will continue to watch blood sugars as well. We will look at repeating laboratory work tomorrow to include a CRP. The patient did verbalize understanding, and we will try to ambulate today and see how he is doing as well. JOHN/EMILIANO /[id number]
[2019-04-25] MEDS: Levofloxacin/Dextrose 5%-Water 500 MG in Premix Bag 1 BAG IV SCH (17:05)
[2019-04-25] MEDS: METFORMIN 500 MG PO SCH (20:00)
[2019-04-25] MEDS: Ferrous Sulfate 324 MG Tab.EC PO SCH (20:00)
[2019-04-25] MEDS ORDERED: ROSUVASTATIN 10 MG PO SCH (20:00)
[2019-04-25] MEDS: Insulin Glargine,Human Rec. Analog 100 Units/ML 3 ML Pen SUBCUT SCH (20:05)
[2019-04-26] MEDS: Pantoprazole 40 MG Vial IVPUSH SCH (05:36)
[2019-04-26] MEDS: Folic Acid 1 MG Tab PO SCH (07:38)
[2019-04-26] MEDS: Albuterol/Ipratropium 3.0-0.5 MG/3 ML Neb Soln NEB SCH ×2 (07:38→12:18)
[2019-04-26] MEDS: Ferrous Sulfate 324 MG Tab.EC PO SCH (07:39)
[2019-04-26] MEDS: METFORMIN 500 MG PO SCH (07:39)
[2019-04-26] MEDS: Insulin Lispro 100 Units/ML 3 ML Vial SUBCUT SCH ×3 (07:42→12:20)
[2019-04-26] MEDS: HYDROCHLOROTHIAZIDE 25 MG PO SCH (07:43)
[2019-04-26] MEDS: VICTOZA SUBCUT SCH (07:45)
[2019-04-26] MEDS: AMLODIPINE 10 MG PO SCH (07:45)
[2019-04-26] MEDS: LISINOPRIL 10 MG PO SCH (07:49)
[2019-04-26] MEDS: Budesonide 0.5 MG/2 ML Neb Susp NEB SCH (07:50)
[2019-04-26] MEDS: XARELTO 20 MG PO SCH (07:50)
[2019-04-26] MEDS: ATENOLOL 50 MG PO SCH (07:51)
[2019-04-26 12:48] VITALS: BP 132/70; PULSE 73
--- NOTE | 2019-04-26 15:14 | DISCH ---
ADMISSION DIAGNOSES: 1. Acute bronchitis. 2. Hypoxia. DISCHARGE DIAGNOSIS: ACUTE BRONCHITIS, CONCERNS OF ASPIRATION. CONSULTATIONS: None. PROCEDURES: None. HISTORY: Nathaniel is a 54-year-old male who presented to the clinic and was seen by his primary provider, Cristal Allison, on the 04/24 with concerns of feeling short of breath upon walking and also with resting. He did have improvement with the nebulizer treatments, just had felt really weak. Was recently discharged with pneumonia not too long ago. HOSPITAL COURSE: Nathaniel had an uneventful hospital stay. Oxygen had been weaned off. Up until yesterday, he has been maintaining his oxygen saturations in the 95% to 96% on room air. He declines any worsening shortness of breath. He states he is feeling a lot better. He has been given IV Levaquin and IV Solu- Medrol, which we did discontinue yesterday as well. Overall, he states he is feeling a lot better. Denies any other concerns at this time. Continues to have a little bit of chronic cough, nothing of any concern per the patient. PHYSICAL EXAMINATION: GENERAL: Obese male, does not really appear to be in any distress. He is sitting in a recliner. Does not appear to be toxic nor acutely ill. HEENT: Grossly unremarkable. LUNGS: Clear to auscultation. I really do not hear any adventitious sounds. No wheezes, rhonchi, or rales are noted. No diminished breath sounds are noted. CARDIAC: Regular rate and rhythm. No murmurs are noted. ABDOMEN: Obese. Bowel sounds are present, normoactive. No organomegaly. No guarding or rigidity. EXTREMITIES: 1+ pedal edema bilaterally. Does appear to be quite stable for the patient. VITAL SIGNS: Blood pressure 129/65, temperature is afebrile, pulse of 70, O2 is 95% on room air with respirations of 18. LABORATORY RESULTS: On admission, CRP was mildly elevated at 1.6, currently 1.0 today. Creatinine did go from 1.2 up to 1.6 today. White blood count has been normal, currently at 9000. Blood sugars have been slightly elevated in the high 100s to low 200s secondary to being known diabetic and also on IV Solu-Medrol. DIET: Resume normal diabetic diet. DISCHARGE MEDICATIONS: We will resume all home medications. We will also start Pulmicort b.i.d. along with Levaquin 500 mg daily for 5 days. DISCHARGE INSTRUCTIONS: Resume activity as tolerated. May shower. FOLLOWUP APPOINTMENTS: Recommend followup appointment on Wednesday with Cristal [facility], primary provider, and repeat a BMP prior to check on creatinine level. Do encourage referral to building drafting officer with possible concerns of aspiration and also PFTs. JOHN/EMILIANO /[id number]
== END 2019-04-26 12:45 | disposition home or self-care (01) ==
LOC: CC.FCMC 14:49 → UNDOADMOB 15:38 → CC.MS 15:38
PROVIDERS: ADMIT Physician Assistant Medical; ATTEND Family Medicine
DX: J20.9 Acute bronchitis, unspecified (principal); R09.02 Hypoxemia; Z88.2 Allergy status to sulfonamides; Z79.899 Other long term (current) drug therapy; Z79.4 Long term (current) use of insulin; Z79.01 Long term (current) use of anticoagulants
CPT/HCPCS: 36415; 71046; 80048; 82962; 83605; 85025; 85379; 86140; 94640; 96361; 96365; 96366; 96375; 96376; A9270-GY; C9113; G0378; J1815; J1815-GY; J1956; J2930; J7030; J7620-GY

== ENCOUNTER 2019-05-15 11:45 | Inpatient (IN) | payer MEDICAID ==
[2019-05-15 11:49] LABS: O2 DELIVERY DEVICE ROOM AIR
[2019-05-15 12:04] LABS: PCO2 ARTERIAL 39 mm/Hg0 (35-45)
[2019-05-15 12:05] LABS: BICARBONATE,ARTERIAL 25.9 mm/L (22.0-26.0); O2 SATURATION ARTERIAL 86 % (95-98); PO2 ARTERIAL 50 mm/Hg (80-100)
[2019-05-15 12:08] LABS: CHLORIDE,CL 101 mEq/L (98-106); SODIUM,NA 141 mEq/L (136-145)
[2019-05-15] MEDS ORDERED: Acetaminophen 325 MG Tab PO PRN (13:54)
[2019-05-15] MEDS ORDERED: Sodium Chloride 0.9% 10 ML Syringe FLUSH PRN (13:54)
[2019-05-15] MEDS ORDERED: Albuterol/Ipratropium 3.0-0.5 MG/3 ML Neb Soln NEB PRN (13:58)
[2019-05-15] MEDS ORDERED: Pantoprazole 40 MG Vial IVPUSH SCH (14:15)
[2019-05-15] MEDS: Levofloxacin/Dextrose 5%-Water 500 MG in Premix Bag 1 BAG IV SCH (14:40)
[2019-05-15] MEDS: Insulin Glargine,Human Rec. Analog 100 Units/ML 3 ML Pen SUBCUT SCH (19:45)
[2019-05-15] MEDS ORDERED: Ferrous Sulfate 324 MG Tab.EC PO SCH (20:00)
[2019-05-15] MEDS ORDERED: metFORMIN 500 MG Tab PO SCH (20:00)
[2019-05-16] MEDS: amLODIPine 10 MG Tab PO SCH (07:29)
[2019-05-16] MEDS: metFORMIN 500 MG Tab PO SCH ×2 (07:29→17:11)
[2019-05-16] MEDS: Hydrochlorothiazide 25 MG Tab PO SCH (07:30)
[2019-05-16] MEDS: Lisinopril 10 MG Tab PO SCH (07:30)
[2019-05-16] MEDS: Folic Acid 1 MG Tab PO SCH (07:30)
[2019-05-16] MEDS: Atenolol 50 MG Tab PO SCH (07:30)
[2019-05-16] MEDS: Ferrous Sulfate 324 MG Tab.EC PO SCH ×2 (07:31→17:11)
[2019-05-16] MEDS: Pantoprazole 40 MG Vial IVPUSH SCH (07:33)
[2019-05-16] MEDS: Non-Formulary Medication 1 Each (Rivaroxaban [Xarelto] 20 MG) PO SCH (07:33)
[2019-05-16 07:51] LABS: CHLORIDE,CL 103 mEq/L (98-106); SODIUM,NA 141 mEq/L (136-145)
[2019-05-16] MEDS: Non-Formulary Medication 1 Each (Liraglutide [Victoza] 1.8 MG) SUBCUT SCH (08:11)
--- NOTE | 2019-05-16 08:45 | PCM.PN ---
- General Info Date of Service: 05/16/19 Admission Dx/Problem (Free Text): Pneumonia Functional Status: Reports: Pain Controlled, Tolerating Diet, Ambulating - Review of Systems General: Reports: Weakness, Fatigue, Malaise. Denies: Fever HEENT: Reports: No Symptoms Pulmonary: Reports: Shortness of Breath, Cough. Denies: Sputum Cardiovascular: Reports: Edema. Denies: Chest Pain, Lightheadedness Gastrointestinal: Denies: Abdominal Pain, Nausea, Vomiting Genitourinary: Reports: No Symptoms Musculoskeletal: Reports: No Symptoms Skin: Reports: No Symptoms Neurological: Reports: Weakness - Patient Data Vitals - Most Recent: Last Vital Signs Temp 98.2 F 05/16/19 08:00 Pulse 69 05/16/19 08:00 Resp 20 05/16/19 08:00 BP 122/63 05/16/19 08:00 Pulse Ox 96 05/16/19 08:00 Weight - Most Recent: 343 lb I&O - Last 24 Hours: Intake & Output 05/15/19 05/16/19 05/16/19 22:59 06:59 14:59 Intake Total 563 100 Balance 563 100 Lab Results Last 24 Hours: Laboratory Results - last 24 hr 05/15/19 05/15/19 05/15/19 Range/Units 11:47 11:47 11:48 WBC 9.0 (5.0-10.0) 10^3/uL RBC 5.03 (4.50-6.00) 10^6/uL Hgb 12.8 L (14.0-18.0) g/dL Hct 40.8 (40.0-54.0) % MCV 81.1 L (82.0-94.0) fL MCH 25.4 L (27.0-32.0) pg MCHC 31.4 L (33.0-38.0) g/dL RDW Coeff of Sophie 17.0 H (11.0-15.0) % Plt Count 179 (150-400) 10^3/uL Neut % (Auto) 76.7 (35-85) % Lymph % (Auto) 14.0 (10-55) % [place] % (Auto) 7.4 (0-16) % Eos % (Auto) 1.3 (0-5) % Baso % (Auto) 0.6 (0-3) % Neut # (Auto) 6.88 (1.80-7.00) 10^3/uL Lymph # (Auto) 1.26 (1.00-4.80) 10^3/uL [place] # (Auto) 0.66 (0.00-0.80) 10^3/uL Eos # (Auto) 0.12 (0.00-0.45) 10^3/uL Baso # (Auto) 0.05 10^3/uL ABG pH 7.43 (7.35-7.45) ABG pCO2 39 (35-45) mm/Hg0 ABG pO2 50 L (80-100) mm/Hg ABG HCO3 25.9 (22.0-26.0) mm/L ABG O2 Saturation 86 L (95-98) % ABG Base Excess 2.0 (-2.0-3.0) O2 Delivery Device Room air Sodium 141 (136-145) mEq/L Potassium 4.1 (3.5-5.0) mEq/L Chloride 101 (98-106) mEq/L Carbon Dioxide 28 (21-32) mmol/L BUN 14 (7-18) mg/dL Creatinine 0.9 (0.7-1.3) mg/dL Est Cr Clr Drug Dosing TNP Estimated GFR (MDRD) > 60 (>=60) mL/min Glucose 152 H (75-99) mg/dL Calcium 9.7 (8.4-10.1) mg/dL Total Bilirubin 0.7 (0.0-1.0) mg/dL AST 14 L (15-37) U/L ALT 19 (12-78) U/L Alkaline Phosphatase 124 H (46-116) U/L C-Reactive Protein 4.8 H (0.2-0.8) mg/dL NT-Pro-B Natriuret Pep (0-1000) pg/mL Total Protein 7.2 (6.4-8.2) g/dL Albumin 3.5 (3.4-5.0) g/dL 05/15/19 05/16/19 05/16/19 Range/Units 12:25 07:00 07:00 WBC 6.5 (5.0-10.0) 10^3/uL RBC 5.09 (4.50-6.00) 10^6/uL Hgb 12.9 L (14.0-18.0) g/dL Hct 41.3 (40.0-54.0) % MCV 81.1 L (82.0-94.0) fL MCH 25.3 L (27.0-32.0) pg MCHC 31.2 L (33.0-38.0) g/dL RDW Coeff of Sophie 17.1 H (11.0-15.0) % Plt Count 183 (150-400) 10^3/uL Neut % (Auto) 66.9 (35-85) % Lymph % (Auto) 22.1 (10-55) % [place] % (Auto) 8.5 (0-16) % Eos % (Auto) 1.9 (0-5) % Baso % (Auto) 0.6 (0-3) % Neut # (Auto) 4.34 (1.80-7.00) 10^3/uL Lymph # (Auto) 1.43 (1.00-4.80) 10^3/uL [place] # (Auto) 0.55 (0.00-0.80) 10^3/uL Eos # (Auto) 0.12 (0.00-0.45) 10^3/uL Baso # (Auto) 0.04 10^3/uL ABG pH (7.35-7.45) ABG pCO2 (35-45) mm/Hg0 ABG pO2 (80-100) mm/Hg ABG HCO3 (22.0-26.0) mm/L ABG O2 Saturation (95-98) % ABG Base Excess (-2.0-3.0) O2 Delivery Device Sodium 141 (136-145) mEq/L Potassium 4.5 (3.5-5.0) mEq/L Chloride 103 (98-106) mEq/L Carbon Dioxide 29 (21-32) mmol/L BUN 17 (7-18) mg/dL Creatinine 0.9 (0.7-1.3) mg/dL Est Cr Clr Drug Dosing 82.57 Estimated GFR (MDRD) > 60 (>=60) mL/min Glucose 92 D (75-99) mg/dL Calcium 9.3 (8.4-10.1) mg/dL Total Bilirubin (0.0-1.0) mg/dL AST (15-37) U/L ALT (12-78) U/L Alkaline Phosphatase (46-116) U/L C-Reactive Protein 5.5 H (0.2-0.8) mg/dL NT-Pro-B Natriuret Pep 149 (0-1000) pg/mL Total Protein (6.4-8.2) g/dL Albumin (3.4-5.0) g/dL Omar Results Last 24 Hours: Microbiology 05/15/19 11:47 Influenza Type A Antigen Screen - Final Nasopharyngeal Swab NEGATIVE INFLUENZA A VIRUS AG REFERENCE RANGE: NEGATIVE Influenza Type B Antigen Screen - Final NEGATIVE INFLUENZA B VIRUS AG REFERENCE RANGE: NEGATIVE Med Orders - Current: Current Medications Acetaminophen (Tylenol) 650 mg PO Q4H PRN PRN Reason: Pain (Mild 1-3)/fever Albuterol/Ipratropium (Duoneb 3.0-0.5 Mg/3 Ml) 3 ml NEB QID [facility] Amlodipine Besylate (Norvasc) 10 mg PO DAILY [facility] Last Admin: 05/16/19 07:29 Dose: 10 mg Atenolol (Tenormin) 50 mg PO DAILY [facility] Last Admin: 05/16/19 07:30 Dose: 50 mg Ferrous Sulfate (Ferrous Sulfate) 324 mg PO BID@0800,1700 [facility] Last Admin: 05/16/19 07:31 Dose: 324 mg Folic Acid (Folic Acid) 1 mg PO DAILY [facility] Last Admin: 05/16/19 07:30 Dose: 1 mg Hydrochlorothiazide (Hydrochlorothiazide) 25 mg PO DAILY [facility] Last Admin: 05/16/19 07:30 Dose: 25 mg Levofloxacin/Dextrose 500 mg/ (Premix) 100 mls @ 100 mls/hr IV Q24H [facility] Last Admin: 05/15/19 14:40 Dose: 100 mls/hr Insulin Glargine (Lantus Solostar) 60 units SUBCUT BEDTIME [facility] Last Admin: 05/15/19 19:45 Dose: 60 units Insulin Human Lispro (Humalog) 20 unit SUBCUT WITHLUNCH [facility] Lisinopril (Prinivil) 10 mg PO DAILY [facility] Last Admin: 05/16/19 07:30 Dose: 10 mg Magnesium Oxide (Magnesium Oxide) 1,000 mg PO DAILY [facility] Last Admin: 05/16/19 07:30 Dose: 1,000 mg Metformin HCl (Glucophage) 1,000 mg PO BIDMEALS@0800,1700 [facility] Last Admin: 05/16/19 07:29 Dose: 1,000 mg Non-Formulary Medication (Liraglutide [Victoza]) 1.8 mg SUBCUT DAILY [facility] Last Admin: 05/16/19 08:11 Dose: 1.8 mg Non-Formulary Medication (Rivaroxaban [Xarelto]) 20 mg PO DAILY [facility] Last Admin: 05/16/19 07:33 Dose: 20 mg Pantoprazole Sodium (Protonix Iv) 40 mg IVPUSH Q24H [facility] Last Admin: 05/16/19 07:33 Dose: 40 mg Sodium Chloride (Saline Flush) 10 ml FLUSH ASDIRECTED PRN PRN Reason: Keep Vein Open Discontinued Medications Albuterol/Ipratropium (Duoneb 3.0-0.5 Mg/3 Ml) 3 ml NEB Q4H PRN PRN Reason: Dyspnea Last Admin: 05/15/19 19:36 Dose: 3 ml Ferrous Sulfate (Ferrous Sulfate) 324 mg PO BID [facility] Last Admin: 05/15/19 19:33 Dose: 324 mg Metformin HCl (Glucophage) 1,000 mg PO BID [facility] Last Admin: 05/15/19 19:34 Dose: 1,000 mg Pantoprazole Sodium (Protonix Iv) 40 mg IVPUSH Q24H [facility] Last Admin: 05/15/19 14:40 Dose: 40 mg - Exam Quality Assessment: Supplemental Oxygen General: Alert, Oriented HEENT: Mucous Membr. Moist/[place] Neck: Supple Lungs: Decreased Breath Sounds Cardiovascular: Regular Rate, Regular Rhythm GI/Abdominal Exam: Normal Bowel Sounds, Soft, Non-Tender Extremities: Pedal Edema (2-3+ pitting) Skin: Warm, Dry Neurological: No New Focal Deficit Sepsis Event Note - Evaluation Sepsis Screening Result: No Definite Risk - Focused Exam Vital Signs: Vital Signs Temp Pulse Pulse Pulse Resp BP BP 05/16/19 08:00 98.2 F 69 20 05/16/19 07:30 69 122/63 05/16/19 07:29 122/63 05/16/19 04:00 98.3 F 68 18 122/60 05/16/19 00:00 98.3 F 70 16 133/61 BP Pulse Ox 05/16/19 08:00 122/63 96 05/16/19 07:30 05/16/19 07:29 05/16/19 04:00 97 05/16/19 00:00 97 Date Exam was Performed: 05/16/19 Time Exam was Performed: 08:40 - Problem List & Annotations (1) Pneumonia SNOMED Code(s): 374063229 Code(s): J18.9 - PNEUMONIA, UNSPECIFIED ORGANISM Status: Acute Priority: High Current Visit: Yes Qualifiers: Pneumonia type: due to other aerobic Gram-negative bacteria Laterality: bilateral Lung location: lower lobe of lung Qualified Code(s): J15.6 - Pneumonia due to other Gram-negative bacteria (2) Respiratory distress SNOMED Code(s): 657151776 Code(s): R06.03 - ACUTE RESPIRATORY DISTRESS Status: Acute Priority: High Current Visit: Yes (3) Diabetes mellitus SNOMED Code(s): 19707508 Code(s): E11.9 - TYPE 2 DIABETES MELLITUS WITHOUT COMPLICATIONS Status: Chronic Priority: Medium Current Visit: Yes - Problem List Review Problem List Initiated/Reviewed/Updated: Yes - My Orders Last 24 Hours: My Active Orders 05/16/19 12:00 Albuterol/Ipratropium [DuoNeb 3.0-0.5 MG/3 ML] 3 ml NEB QID - Assessment Assessment:: Bilateral Lower Lobe Pneumonia Respiratory Distress Diabetes type 2 - Plan Plan:: Patient up resting in chair. States gets "very winded with activity/ambulation " but feels fairly good while resting in chair. Oxygen sats are maintaining 96 % with 2 liters of oxygen. Lung sounds are diminished. Appetite is good. WBC remains normal today at 6.5, CRP 5.5. Electrolytes normal, creatinine normal. Will continue with oxygen as needed. Schedule nebs. Collect sputum as able. Continue with IV Levaquin. Repeat labs in am.
[2019-05-16] MEDS: Albuterol/Ipratropium 3.0-0.5 MG/3 ML Neb Soln NEB SCH ×3 (11:51→21:50)
[2019-05-16] MEDS ORDERED: Insulin Lispro 100 Units/ML 3 ML Vial SUBCUT SCH (12:00)
[2019-05-16] MEDS: Levofloxacin/Dextrose 5%-Water 500 MG in Premix Bag 1 BAG IV SCH (15:49)
[2019-05-16] MEDS: Insulin Glargine,Human Rec. Analog 100 Units/ML 3 ML Pen SUBCUT SCH (21:50)
[2019-05-17] MEDS: Pantoprazole 40 MG Vial IVPUSH SCH (07:35)
[2019-05-17] MEDS: amLODIPine 10 MG Tab PO SCH (07:38)
[2019-05-17] MEDS: Folic Acid 1 MG Tab PO SCH (07:39)
[2019-05-17] MEDS: Ferrous Sulfate 324 MG Tab.EC PO SCH ×2 (07:39→17:49)
[2019-05-17] MEDS: Atenolol 50 MG Tab PO SCH (07:39)
[2019-05-17] MEDS: metFORMIN 500 MG Tab PO SCH ×2 (07:39→17:49)
[2019-05-17] MEDS: Hydrochlorothiazide 25 MG Tab PO SCH (07:40)
[2019-05-17] MEDS: Non-Formulary Medication 1 Each (Rivaroxaban [Xarelto] 20 MG) PO SCH (07:40)
[2019-05-17] MEDS: Albuterol/Ipratropium 3.0-0.5 MG/3 ML Neb Soln NEB SCH ×4 (07:40→19:25)
[2019-05-17] MEDS: Lisinopril 10 MG Tab PO SCH (07:40)
[2019-05-17 07:44] LABS: CHLORIDE,CL 100 mEq/L (98-106); SODIUM,NA 138 mEq/L (136-145)
[2019-05-17] MEDS: Non-Formulary Medication 1 Each (Liraglutide [Victoza] 1.8 MG) SUBCUT SCH (08:23)
--- NOTE | 2019-05-17 09:55 | PCM.PN ---
- General Info Date of Service: 05/17/19 Admission Dx/Problem (Free Text): Pneumonia Functional Status: Reports: Tolerating Diet - Review of Systems General: Reports: Weakness. Denies: Fever HEENT: Reports: No Symptoms. Denies: Ear Pain, Sinus Congestion, Sore Throat Pulmonary: Reports: Shortness of Breath, Cough, Sputum, Wheezing. Denies: Pleuritic Chest Pain Cardiovascular: Reports: No Symptoms. Denies: Chest Pain Gastrointestinal: Reports: No Symptoms. Denies: Abdominal Pain, Nausea, Vomiting Musculoskeletal: Reports: No Symptoms. Denies: Back Pain Skin: Reports: No Symptoms Neurological: Reports: No Symptoms. Denies: Dizziness, Headache Psychiatric: Reports: No Symptoms - Patient Data Vitals - Most Recent: Last Vital Signs Temp 37.1 C 05/17/19 08:00 Pulse 69 05/17/19 08:00 Resp 20 05/17/19 08:00 BP 129/60 05/17/19 08:00 Pulse Ox 97 05/17/19 08:00 Weight - Most Recent: 155.582 kg I&O - Last 24 Hours: Intake & Output 05/16/19 05/17/19 05/17/19 22:59 06:59 14:59 Intake Total 1080 540 Output Total 1100 Balance 1080 -560 Lab Results Last 24 Hours: Laboratory Results - last 24 hr 05/16/19 05/16/19 05/16/19 Range/Units 11:46 13:18 15:23 WBC (5.0-10.0) 10^3/uL RBC (4.50-6.00) 10^6/uL Hgb (14.0-18.0) g/dL Hct (40.0-54.0) % MCV (82.0-94.0) fL MCH (27.0-32.0) pg MCHC (33.0-38.0) g/dL RDW Coeff of Sophie (11.0-15.0) % Plt Count (150-400) 10^3/uL Neut % (Auto) (35-85) % Lymph % (Auto) (10-55) % [place] % (Auto) (0-16) % Eos % (Auto) (0-5) % Baso % (Auto) (0-3) % Neut # (Auto) (1.80-7.00) 10^3/uL Lymph # (Auto) (1.00-4.80) 10^3/uL [place] # (Auto) (0.00-0.80) 10^3/uL Eos # (Auto) (0.00-0.45) 10^3/uL Baso # (Auto) 10^3/uL Sodium (136-145) mEq/L Potassium (3.5-5.0) mEq/L Chloride (98-106) mEq/L Carbon Dioxide (21-32) mmol/L BUN (7-18) mg/dL Creatinine (0.7-1.3) mg/dL Est Cr Clr Drug Dosing mL/min Estimated GFR (MDRD) (>=60) mL/min Glucose (75-99) mg/dL POC Glucose 100 145 H 43 L* (75-105) mg/dl Calcium (8.4-10.1) mg/dL C-Reactive Protein (0.2-0.8) mg/dL 05/16/19 05/16/19 05/16/19 Range/Units 15:54 17:11 19:48 WBC (5.0-10.0) 10^3/uL RBC (4.50-6.00) 10^6/uL Hgb (14.0-18.0) g/dL Hct (40.0-54.0) % MCV (82.0-94.0) fL MCH (27.0-32.0) pg MCHC (33.0-38.0) g/dL RDW Coeff of Sophie (11.0-15.0) % Plt Count (150-400) 10^3/uL Neut % (Auto) (35-85) % Lymph % (Auto) (10-55) % [place] % (Auto) (0-16) % Eos % (Auto) (0-5) % Baso % (Auto) (0-3) % Neut # (Auto) (1.80-7.00) 10^3/uL Lymph # (Auto) (1.00-4.80) 10^3/uL [place] # (Auto) (0.00-0.80) 10^3/uL Eos # (Auto) (0.00-0.45) 10^3/uL Baso # (Auto) 10^3/uL Sodium (136-145) mEq/L Potassium (3.5-5.0) mEq/L Chloride (98-106) mEq/L Carbon Dioxide (21-32) mmol/L BUN (7-18) mg/dL Creatinine (0.7-1.3) mg/dL Est Cr Clr Drug Dosing mL/min Estimated GFR (MDRD) (>=60) mL/min Glucose (75-99) mg/dL POC Glucose 94 117 H 113 H (75-105) mg/dl Calcium (8.4-10.1) mg/dL C-Reactive Protein (0.2-0.8) mg/dL 05/17/19 05/17/19 Range/Units 07:00 07:00 WBC 6.4 (5.0-10.0) 10^3/uL RBC 5.03 (4.50-6.00) 10^6/uL Hgb 12.7 L (14.0-18.0) g/dL Hct 41.0 (40.0-54.0) % MCV 81.5 L (82.0-94.0) fL MCH 25.2 L (27.0-32.0) pg MCHC 31.0 L (33.0-38.0) g/dL RDW Coeff of Sophie 17.0 H (11.0-15.0) % Plt Count 193 (150-400) 10^3/uL Neut % (Auto) 72.5 (35-85) % Lymph % (Auto) 17.5 (10-55) % [place] % (Auto) 7.2 (0-16) % Eos % (Auto) 2.3 (0-5) % Baso % (Auto) 0.5 (0-3) % Neut # (Auto) 4.63 (1.80-7.00) 10^3/uL Lymph # (Auto) 1.12 (1.00-4.80) 10^3/uL [place] # (Auto) 0.46 (0.00-0.80) 10^3/uL Eos # (Auto) 0.15 (0.00-0.45) 10^3/uL Baso # (Auto) 0.03 10^3/uL Sodium 138 (136-145) mEq/L Potassium 5.0 (3.5-5.0) mEq/L Chloride 100 (98-106) mEq/L Carbon Dioxide 28 (21-32) mmol/L BUN 25 H (7-18) mg/dL Creatinine 1.1 (0.7-1.3) mg/dL Est Cr Clr Drug Dosing 67.56 mL/min Estimated GFR (MDRD) > 60 (>=60) mL/min Glucose 154 H D (75-99) mg/dL POC Glucose (75-105) mg/dl Calcium 9.6 (8.4-10.1) mg/dL C-Reactive Protein 3.2 H (0.2-0.8) mg/dL Med Orders - Current: Current Medications Acetaminophen (Tylenol) 650 mg PO Q4H PRN PRN Reason: Pain (Mild 1-3)/fever Albuterol/Ipratropium (Duoneb 3.0-0.5 Mg/3 Ml) 3 ml NEB QIDRT [facility] Last Admin: 05/17/19 07:40 Dose: 3 ml Amlodipine Besylate (Norvasc) 10 mg PO DAILY [facility] Last Admin: 05/17/19 07:38 Dose: 10 mg Atenolol (Tenormin) 50 mg PO DAILY [facility] Last Admin: 05/17/19 07:39 Dose: 50 mg Ferrous Sulfate (Ferrous Sulfate) 324 mg PO BID@0800,1700 [facility] Last Admin: 05/17/19 07:39 Dose: 324 mg Folic Acid (Folic Acid) 1 mg PO DAILY [facility] Last Admin: 05/17/19 07:39 Dose: 1 mg Hydrochlorothiazide (Hydrochlorothiazide) 25 mg PO DAILY [facility] Last Admin: 05/17/19 07:40 Dose: 25 mg Levofloxacin/Dextrose 500 mg/ (Premix) 100 mls @ 100 mls/hr IV Q24H [facility] Last Admin: 05/16/19 15:49 Dose: 100 mls/hr Insulin Glargine (Lantus Solostar) 60 units SUBCUT BEDTIME [facility] Last Admin: 05/16/19 21:50 Dose: Not Given Insulin Human Lispro (Humalog) 20 unit SUBCUT WITHLUNCH [facility] Last Admin: 05/16/19 13:33 Dose: 20 units Lisinopril (Prinivil) 10 mg PO DAILY [facility] Last Admin: 05/17/19 07:40 Dose: 10 mg Magnesium Oxide (Magnesium Oxide) 1,000 mg PO DAILY [facility] Last Admin: 05/17/19 07:38 Dose: 1,000 mg Metformin HCl (Glucophage) 1,000 mg PO BIDMEALS@0800,1700 [facility] Last Admin: 05/17/19 07:39 Dose: 1,000 mg Non-Formulary Medication (Liraglutide [Victoza]) 1.8 mg SUBCUT DAILY [facility] Last Admin: 05/17/19 08:23 Dose: 1.8 mg Non-Formulary Medication (Rivaroxaban [Xarelto]) 20 mg PO DAILY [facility] Last Admin: 05/17/19 07:40 Dose: 20 mg Pantoprazole Sodium (Protonix Iv) 40 mg IVPUSH Q24H [facility] Last Admin: 05/17/19 07:35 Dose: 40 mg Sodium Chloride (Saline Flush) 10 ml FLUSH ASDIRECTED PRN PRN Reason: Keep Vein Open Discontinued Medications Albuterol/Ipratropium (Duoneb 3.0-0.5 Mg/3 Ml) 3 ml NEB Q4H PRN PRN Reason: Dyspnea Last Admin: 05/15/19 19:36 Dose: 3 ml Ferrous Sulfate (Ferrous Sulfate) 324 mg PO BID [facility] Last Admin: 05/15/19 19:33 Dose: 324 mg Metformin HCl (Glucophage) 1,000 mg PO BID [facility] Last Admin: 05/15/19 19:34 Dose: 1,000 mg Pantoprazole Sodium (Protonix Iv) 40 mg IVPUSH Q24H [facility] Last Admin: 05/15/19 14:40 Dose: 40 mg - Exam Quality Assessment: Supplemental Oxygen (@L NC) General: Alert, Oriented, Cooperative, No Acute Distress HEENT: Pupils Equal Neck: Supple, Trachea Midline Lungs: Clear to Auscultation, Normal Respiratory Effort Cardiovascular: Regular Rate, Regular Rhythm, No Murmurs GI/Abdominal Exam: Soft, Non-Tender, Other (Morbid Obesity) Back Exam: Normal Inspection, Full Range of Motion Extremities: Normal Inspection, Normal Range of Motion, Non-Tender, No Pedal Edema, Normal Capillary Refill Peripheral Pulses: 2+: Radial (L), Radial (R) Skin: Warm, Dry, Intact Neurological: No New Focal Deficit Psy/Mental Status: Alert, Normal Affect, Normal Mood Sepsis Event Note - Evaluation Sepsis Screening Result: No Definite Risk - Focused Exam Vital Signs: Vital Signs Temp Pulse Pulse Resp BP BP Pulse Ox 05/17/19 08:00 37.1 C 69 20 129/60 97 05/17/19 07:40 129/60 05/17/19 07:39 69 129/60 05/17/19 07:38 129/60 05/17/19 04:00 36.4 C 71 20 133/63 95 05/16/19 23:56 36.3 C 76 20 128/58 L 95 Date Exam was Performed: 05/17/19 Time Exam was Performed: 09:47 - Problem List & Annotations (1) Pneumonia SNOMED Code(s): 869270382 Code(s): J18.9 - PNEUMONIA, UNSPECIFIED ORGANISM Status: Acute Priority: High Current Visit: Yes Qualifiers: Pneumonia type: due to other aerobic Gram-negative bacteria Laterality: bilateral Lung location: lower lobe of lung Qualified Code(s): J15.6 - Pneumonia due to other Gram-negative bacteria - Problem List Review Problem List Initiated/Reviewed/Updated: Yes - Assessment Assessment:: Bilateral Lower Lobe Pneumonia Respiratory Distress Diabetes type 2 - Plan Plan:: Patient up resting in chair. States gets "very winded with activity/ambulation " but feels fairly good while resting in chair. Oxygen sats are maintaining 96 % with 2 liters of oxygen. Lung sounds are diminished. Appetite is good. WBC remains normal today at 6.5, CRP 5.5. Electrolytes normal, creatinine normal. Will continue with oxygen as needed. Schedule nebs. Collect sputum as able. Continue with IV Levaquin. Repeat labs in am. 05/17/19 0952 Pts WBC is normal, CRP is coming down, the pt advises he still has some SOB with ambulating, no CP, no fever or chills, no abd pain, no nv, is tolerating his diet. The pts BS has been dropping with the insulin coverage and the insulin has been on hold, will switch to a sliding scale for now. will continue current tx plan and repeat blood work and CXR in am. will change tx plan as needed
[2019-05-17] MEDS ORDERED: Insulin Regular, Human 100 Units/ML 10 ML Vial SUBCUT SCH (11:00)
[2019-05-17] MEDS: Levofloxacin/Dextrose 5%-Water 500 MG in Premix Bag 1 BAG IV SCH (14:48)
[2019-05-17] MEDS: Insulin Regular, Human 100 Units/ML 10 ML Vial SUBCUT SCH ×2 (17:49→21:15)
[2019-05-18] MEDS: Ferrous Sulfate 324 MG Tab.EC PO SCH (07:31)
[2019-05-18] MEDS: metFORMIN 500 MG Tab PO SCH (07:31)
[2019-05-18] MEDS: Hydrochlorothiazide 25 MG Tab PO SCH (07:31)
[2019-05-18] MEDS: amLODIPine 10 MG Tab PO SCH (07:31)
[2019-05-18] MEDS: Pantoprazole 40 MG Vial IVPUSH SCH (07:31)
[2019-05-18] MEDS: Albuterol/Ipratropium 3.0-0.5 MG/3 ML Neb Soln NEB SCH (07:31)
[2019-05-18] MEDS: Folic Acid 1 MG Tab PO SCH (07:31)
[2019-05-18] MEDS: Atenolol 50 MG Tab PO SCH (07:31)
[2019-05-18] MEDS: Non-Formulary Medication 1 Each (Rivaroxaban [Xarelto] 20 MG) PO SCH (07:32)
[2019-05-18] MEDS: Lisinopril 10 MG Tab PO SCH (07:32)
[2019-05-18] MEDS: Non-Formulary Medication 1 Each (Liraglutide [Victoza] 1.8 MG) SUBCUT SCH (07:32)
[2019-05-18 07:41] VITALS: BP 110/50; PULSE 78
[2019-05-18] MEDS: Insulin Regular, Human 100 Units/ML 10 ML Vial SUBCUT SCH (07:41)
[2019-05-18 08:31] LABS: CHLORIDE,CL 101 mEq/L (98-106); SODIUM,NA 138 mEq/L (136-145)
--- NOTE | 2019-05-18 09:11 | PCM.DCSUM1 ---
Discharge Summary - Hospital Course Free Text/Narrative:: Patient presented to clinic to see Cristal Allison for increased shortness of breath for 2 days and chills. Has been hospitalized x2 recently for pneumonia. Admits had been feeling good after discharged from the hospital earlier this month. Had swallow study to rule out aspiration as cause for recurring pneumonia. Labs stable, WBC normal but chest xray shows bilateral infiltrates. Admitted and started on IV Levaquin. Nebs. Oxygen as needed as hypoxic with PO2 at 50, 86% sat. Diagnosis: Stroke: No - Discharge Data Discharge Date: 05/18/19 Discharge Disposition: DC/Tfer W/I Hosp To [place] [id number] Condition: Fair - Referral to Home Health Primary Care Physician: Cristal Allison PA-C - Discharge Diagnosis/Problem(s) (1) Pneumonia SNOMED Code(s): 995929061 ICD Code: J18.9 - PNEUMONIA, UNSPECIFIED ORGANISM Status: Acute Priority : High Qualifiers: Pneumonia type: due to other aerobic Gram-negative bacteria Laterality: right Lung location: lower lobe of lung Qualified Code(s): J15.6 - Pneumonia due to other Gram-negative bacteria (2) Respiratory distress SNOMED Code(s): 166818887 ICD Code: R06.03 - ACUTE RESPIRATORY DISTRESS Status: Acute Priority: High (3) Diabetes mellitus SNOMED Code(s): 92276321 ICD Code: E11.9 - TYPE 2 DIABETES MELLITUS WITHOUT COMPLICATIONS Status: Chronic Priority: Medium - Patient Summary/Data Complications: none Hospital Course: Patient doing well this am. Does continue to complain of shortness of breath with ambulation. Oxygen sat 95% this am so oxygen was stopped while at rest. Lung sounds are diminished but clear. Labs have remained stable with WBC at 5.9. CRP 1.6. Appetite has been good. Does continue to have edema 2-3+ pitting dependent edema in legs. As patient has continued to have recurring pneumonia, will transfer to [facility] for ongoing IV antibiotics. - Patient Instructions Diet: Diabetic Diet Activity: As Tolerated - Discharge Plan *PRESCRIPTION DRUG MONITORING PROGRAM REVIEWED*: Not Applicable *COPY OF PRESCRIPTION DRUG MONITORING REPORT IN PATIENT MAICO: Not Applicable Home Medications: Home Meds Acetaminophen [Tylenol] 650 mg PO Q4H PRN 04/24/13 [History] Ascorbic Acid [Vitamin C] 500 mg PO BID 04/24/13 [History] Atenolol [Tenormin] 50 mg PO DAILY 04/24/13 [History] Famotidine [Pepcid] 20 mg PO BID 04/24/13 [History] Ferrous Sulfate [Iron] 325 mg PO BID 04/24/13 [History] Folic Acid 1 mg PO DAILY 04/24/13 [History] Insulin Aspart [NovoLOG] 20 unit SUBCUT WITHLUNCH 04/24/13 [History] Insulin Glarg,Human.Rec.Analog [Lantus] 60 unit SQ BEDTIME 04/24/13 [History] Lisinopril [Zestril] 10 mg PO DAILY 04/24/13 [History] amLODIPine [Norvasc] 10 mg PO DAILY 04/24/13 [History] hydroCHLOROthiazide [Hydrochlorothiazide] 25 mg PO DAILY 04/24/13 [History] Magnesium 1,000 mg PO DAILY 01/27/15 [History] Multivitamin [Multivitamins] 1 tab PO DAILY 01/27/15 [History] Cholecalciferol (Vitamin D3) [Vitamin D3] 5,000 unit PO DAILY 09/07/15 [History] metFORMIN HCl [Metformin HCl] 1,000 mg PO BID 01/14/17 [History] Rosuvastatin Calcium 10 mg PO BEDTIME 02/03/17 [History] Albuterol/Ipratropium [DuoNeb 3.0-0.5 MG/3 ML] 1 vial NEB Q4H PRN 05/24/17 [ History] Liraglutide [Victoza] 1.8 mg SUBCUT DAILY 11/07/17 [History] Rivaroxaban [Xarelto] 20 mg PO DAILY 02/28/19 [History] - Discharge Summary/Plan Comment DC Time >30 min.: No - General Info Date of Service: 05/18/19 Admission Dx/Problem (Free Text: Pneumonia Functional Status: Reports: Pain Controlled, Tolerating Diet, Ambulating - Review of Systems General: Reports: Weakness, Fatigue HEENT: Reports: Rhinitis Pulmonary: Reports: Shortness of Breath, Cough, Wheezing. Denies: Sputum Cardiovascular: Reports: Chest Pain, Edema. Denies: Lightheadedness Gastrointestinal: Denies: Abdominal Pain, Nausea, Vomiting Genitourinary: Reports: No Symptoms Musculoskeletal: Reports: No Symptoms Skin: Reports: No Symptoms Neurological: Reports: Weakness - Patient Data Vitals - Most Recent: Last Vital Signs Temp 98.9 F 05/18/19 07:47 Pulse 78 05/18/19 07:47 Resp 18 05/18/19 07:47 BP 110/50 L 05/18/19 07:47 Pulse Ox 95 05/18/19 07:47 Weight - Most Recent: 343 lb I&O - Last 24 hours: Intake & Output 05/17/19 05/18/19 05/18/19 22:59 06:59 14:59 Intake Total 1440 500 Output Total 900 1700 Balance 540 -1200 Lab Results - Last 24 hrs: Laboratory Results - last 24 hr 05/18/19 05/18/19 Range/Units 06:00 07:00 WBC 5.9 (5.0-10.0) 10^3/uL RBC 4.88 (4.50-6.00) 10^6/uL Hgb 12.3 L (14.0-18.0) g/dL Hct 40.0 (40.0-54.0) % MCV 82.0 (82.0-94.0) fL MCH 25.2 L (27.0-32.0) pg MCHC 30.8 L (33.0-38.0) g/dL RDW Coeff of Sophie 16.6 H (11.0-15.0) % Plt Count 194 (150-400) 10^3/uL Neut % (Auto) 69.8 (35-85) % Lymph % (Auto) 19.3 (10-55) % [place] % (Auto) 8.0 (0-16) % Eos % (Auto) 2.2 (0-5) % Baso % (Auto) 0.7 (0-3) % Neut # (Auto) 4.12 (1.80-7.00) 10^3/uL Lymph # (Auto) 1.14 (1.00-4.80) 10^3/uL [place] # (Auto) 0.47 (0.00-0.80) 10^3/uL Eos # (Auto) 0.13 (0.00-0.45) 10^3/uL Baso # (Auto) 0.04 10^3/uL Sodium 138 (136-145) mEq/L Potassium 4.8 (3.5-5.0) mEq/L Chloride 101 (98-106) mEq/L Carbon Dioxide 29 (21-32) mmol/L BUN 26 H (7-18) mg/dL Creatinine 1.1 (0.7-1.3) mg/dL Est Cr Clr Drug Dosing 67.56 mL/min Estimated GFR (MDRD) > 60 (>=60) mL/min Glucose 169 H (75-99) mg/dL Calcium 9.6 (8.4-10.1) mg/dL Total Bilirubin 0.5 (0.0-1.0) mg/dL AST 15 (15-37) U/L ALT 21 (12-78) U/L Alkaline Phosphatase 113 (46-116) U/L C-Reactive Protein 1.6 H (0.2-0.8) mg/dL Total Protein 6.9 (6.4-8.2) g/dL Albumin 3.3 L (3.4-5.0) g/dL Med Orders - Current: Current Medications Discontinued Medications Acetaminophen (Tylenol) 650 mg PO Q4H PRN PRN Reason: Pain (Mild 1-3)/fever Albuterol/Ipratropium (Duoneb 3.0-0.5 Mg/3 Ml) 3 ml NEB Q4H PRN PRN Reason: Dyspnea Last Admin: 05/15/19 19:36 Dose: 3 ml Albuterol/Ipratropium (Duoneb 3.0-0.5 Mg/3 Ml) 3 ml NEB QIDRT [facility] Last Admin: 05/18/19 07:31 Dose: 3 ml Amlodipine Besylate (Norvasc) 10 mg PO DAILY [facility] Last Admin: 05/18/19 07:31 Dose: 10 mg Atenolol (Tenormin) 50 mg PO DAILY [facility] Last Admin: 05/18/19 07:31 Dose: 50 mg Ferrous Sulfate (Ferrous Sulfate) 324 mg PO BID [facility] Last Admin: 05/15/19 19:33 Dose: 324 mg Ferrous Sulfate (Ferrous Sulfate) 324 mg PO BID@0800,1700 [facility] Last Admin: 05/18/19 07:31 Dose: 324 mg Folic Acid (Folic Acid) 1 mg PO DAILY [facility] Last Admin: 05/18/19 07:31 Dose: 1 mg Hydrochlorothiazide (Hydrochlorothiazide) 25 mg PO DAILY [facility] Last Admin: 05/18/19 07:31 Dose: 25 mg Levofloxacin/Dextrose 500 mg/ (Premix) 100 mls @ 100 mls/hr IV Q24H [facility] Last Admin: 05/17/19 14:48 Dose: 100 mls/hr Insulin Glargine (Lantus Solostar) 60 units SUBCUT BEDTIME [facility] Last Admin: 05/16/19 21:50 Dose: Not Given Insulin Human Lispro (Humalog) 20 unit SUBCUT WITHLUNCH [facility] Last Admin: 05/16/19 13:33 Dose: 20 units Insulin Human Regular (Novolin R) 0 unit SUBCUT QIDACANDBED [facility]; Protocol Last Admin: 05/17/19 11:32 Dose: Not Given Insulin Human Regular (Novolin R) 0 unit SUBCUT 0800,1200,1700,2100 [facility]; Protocol Last Admin: 05/18/19 07:41 Dose: Not Given Lisinopril (Prinivil) 10 mg PO DAILY [facility] Last Admin: 05/18/19 07:32 Dose: 10 mg Magnesium Oxide (Magnesium Oxide) 1,000 mg PO DAILY [facility] Last Admin: 05/18/19 07:31 Dose: 1,000 mg Metformin HCl (Glucophage) 1,000 mg PO BID [facility] Last Admin: 05/15/19 19:34 Dose: 1,000 mg Metformin HCl (Glucophage) 1,000 mg PO BIDMEALS@0800,1700 [facility] Last Admin: 05/18/19 07:31 Dose: 1,000 mg Non-Formulary Medication (Liraglutide [Victoza]) 1.8 mg SUBCUT DAILY [facility] Last Admin: 05/18/19 07:32 Dose: 1.8 mg Non-Formulary Medication (Rivaroxaban [Xarelto]) 20 mg PO DAILY [facility] Last Admin: 05/18/19 07:32 Dose: 20 mg Pantoprazole Sodium (Protonix Iv) 40 mg IVPUSH Q24H [facility] Last Admin: 05/15/19 14:40 Dose: 40 mg Pantoprazole Sodium (Protonix Iv) 40 mg IVPUSH Q24H [facility] Last Admin: 05/18/19 07:31 Dose: 40 mg Sodium Chloride (Saline Flush) 10 ml FLUSH ASDIRECTED PRN PRN Reason: Keep Vein Open - Exam General: Reports: Alert, Oriented HEENT: Reports: Mucous Membr. Moist/[place] Neck: Reports: Supple Lungs: Reports: Decreased Breath Sounds, Wheezing Cardiovascular: Reports: Regular Rate, Regular Rhythm GI/Abdominal Exam: Normal Bowel Sounds, Soft, Non-Tender Extremities: Pedal Edema (2-3+ pitting in lower extremities) Skin: Reports: Warm, Dry Neurological: Reports: No New Focal Deficit
== END 2019-05-18 09:07 | disposition swing bed (61) | DRG 179 ==
LOC: CC.FCMC 11:45 → UNDOADMIN 12:27 → CC.MS 12:27
PROVIDERS: ADMIT Physician Assistant Medical; ATTEND Family Medicine
DX: J18.9 Pneumonia, unspecified organism (principal); J15.6 Pneumonia due to other Gram-negative bacteria; E11.9 Type 2 diabetes mellitus without complications; R60.0 Localized edema; N40.0 Benign prostatic hyperplasia without lower urinary tract symptoms; K21.9 Gastro-esophageal reflux disease without esophagitis; E78.5 Hyperlipidemia, unspecified; I10 Essential (primary) hypertension; R79.89 Other specified abnormal findings of blood chemistry; E66.01 Morbid (severe) obesity due to excess calories; I48.0 Paroxysmal atrial fibrillation; N28.9 Disorder of kidney and ureter, unspecified; E55.9 Vitamin D deficiency, unspecified; Z88.2 Allergy status to sulfonamides; Z79.4 Long term (current) use of insulin; Z79.899 Other long term (current) drug therapy; Z86.14 Personal history of Methicillin resistant Staphylococcus aureus infection; Z87.01 Personal history of pneumonia (recurrent); Z98.890 Other specified postprocedural states
CPT/HCPCS: 36415; 36600; 71046; 80048; 80053; 82803; 82962; 83880; 85025; 86140; 87804; 94640; A9270-GY; C9113; J1815; J1815-GY; J1956; J7620-GY

== ENCOUNTER 2019-05-18 09:06 | Inpatient (IN) | payer MEDICAID ==
[2019-05-18] MEDS ORDERED: Sodium Chloride 0.9% 10 ML Syringe FLUSH PRN ×2 (09:28)
[2019-05-18] MEDS: Albuterol/Ipratropium 3.0-0.5 MG/3 ML Neb Soln NEB SCH ×3 (11:31→20:45)
[2019-05-18] MEDS: Insulin Regular, Human 100 Units/ML 10 ML Vial SUBCUT SCH ×3 (11:34→20:45)
[2019-05-18] MEDS: Levofloxacin/Dextrose 5%-Water 500 MG in Premix Bag 1 BAG IV SCH (14:49)
[2019-05-18] MEDS: Ferrous Sulfate 324 MG Tab.EC PO SCH (18:13)
[2019-05-18] MEDS: metFORMIN 500 MG Tab PO SCH (18:13)
[2019-05-19 07:09] LABS: CHLORIDE,CL 103 mEq/L (98-106); SODIUM,NA 142 mEq/L (136-145)
[2019-05-19] MEDS: Albuterol/Ipratropium 3.0-0.5 MG/3 ML Neb Soln NEB SCH ×4 (07:57→19:56)
[2019-05-19] MEDS: metFORMIN 500 MG Tab PO SCH ×2 (07:58→17:25)
[2019-05-19] MEDS: Folic Acid 1 MG Tab PO SCH (07:58)
[2019-05-19] MEDS: Pantoprazole 40 MG Vial IVPUSH SCH (07:58)
[2019-05-19] MEDS: Ferrous Sulfate 324 MG Tab.EC PO SCH ×2 (07:59→17:25)
[2019-05-19] MEDS: amLODIPine 10 MG Tab PO SCH (07:59)
[2019-05-19] MEDS: Atenolol 50 MG Tab PO SCH (07:59)
[2019-05-19] MEDS: Lisinopril 10 MG Tab PO SCH (07:59)
[2019-05-19] MEDS: Hydrochlorothiazide 25 MG Tab PO SCH (08:00)
[2019-05-19] MEDS: LIRAGLUTIDE 1.8 MG SUBCUT SCH (08:01)
[2019-05-19] MEDS: Insulin Regular, Human 100 Units/ML 10 ML Vial SUBCUT SCH (08:05)
[2019-05-19] MEDS: RIVAROXABAN 20 MG PO SCH (08:06)
[2019-05-19] MEDS: Insulin Lispro 100 Units/ML 3 ML Vial SUBCUT SCH ×3 (13:25→21:37)
[2019-05-19] MEDS: Levofloxacin/Dextrose 5%-Water 500 MG in Premix Bag 1 BAG IV SCH (14:43)
[2019-05-20 07:15] LABS: CHLORIDE,CL 103 mEq/L (98-106); SODIUM,NA 140 mEq/L (136-145)
[2019-05-20] MEDS: Albuterol/Ipratropium 3.0-0.5 MG/3 ML Neb Soln NEB SCH ×4 (07:51→20:14)
[2019-05-20] MEDS: Pantoprazole 40 MG Vial IVPUSH SCH (07:53)
[2019-05-20] MEDS: metFORMIN 500 MG Tab PO SCH ×2 (07:54→17:10)
[2019-05-20] MEDS: Atenolol 50 MG Tab PO SCH (07:55)
[2019-05-20] MEDS: Ferrous Sulfate 324 MG Tab.EC PO SCH ×2 (07:55→17:10)
[2019-05-20] MEDS: Lisinopril 10 MG Tab PO SCH (07:55)
[2019-05-20] MEDS: Folic Acid 1 MG Tab PO SCH (07:55)
[2019-05-20] MEDS: Hydrochlorothiazide 25 MG Tab PO SCH (07:55)
[2019-05-20] MEDS: amLODIPine 10 MG Tab PO SCH (07:56)
[2019-05-20] MEDS: LIRAGLUTIDE 1.8 MG SUBCUT SCH (08:01)
[2019-05-20] MEDS: Insulin Lispro 100 Units/ML 3 ML Vial SUBCUT SCH ×4 (08:01→20:17)
[2019-05-20] MEDS: RIVAROXABAN 20 MG PO SCH (08:02)
[2019-05-20] MEDS: Levofloxacin/Dextrose 5%-Water 500 MG in Premix Bag 1 BAG IV SCH (15:54)
[2019-05-20] MEDS: Acetaminophen 325 MG Tab PO PRN (20:27)
[2019-05-21 07:22] LABS: CHLORIDE,CL 103 mEq/L (98-106); SODIUM,NA 140 mEq/L (136-145)
[2019-05-21] MEDS: Albuterol/Ipratropium 3.0-0.5 MG/3 ML Neb Soln NEB SCH ×4 (07:58→19:35)
[2019-05-21] MEDS: Pantoprazole 40 MG Vial IVPUSH SCH (08:00)
[2019-05-21] MEDS: metFORMIN 500 MG Tab PO SCH ×2 (08:01→17:05)
[2019-05-21] MEDS: amLODIPine 10 MG Tab PO SCH (08:01)
[2019-05-21] MEDS: Atenolol 50 MG Tab PO SCH (08:01)
[2019-05-21] MEDS: Lisinopril 10 MG Tab PO SCH (08:01)
[2019-05-21] MEDS: Hydrochlorothiazide 25 MG Tab PO SCH (08:02)
[2019-05-21] MEDS: Folic Acid 1 MG Tab PO SCH (08:02)
[2019-05-21] MEDS: Ferrous Sulfate 324 MG Tab.EC PO SCH ×2 (08:02→17:05)
[2019-05-21] MEDS: Insulin Lispro 100 Units/ML 3 ML Vial SUBCUT SCH ×4 (08:03→20:38)
[2019-05-21] MEDS: LIRAGLUTIDE 1.8 MG SUBCUT SCH (08:03)
[2019-05-21] MEDS: RIVAROXABAN 20 MG PO SCH (08:06)
[2019-05-21] MEDS: Acetaminophen 325 MG Tab PO PRN (10:27)
[2019-05-21] MEDS: Levofloxacin/Dextrose 5%-Water 500 MG in Premix Bag 1 BAG IV SCH (15:07)
[2019-05-22] MEDS: Ferrous Sulfate 324 MG Tab.EC PO SCH ×2 (07:31→17:46)
[2019-05-22] MEDS: Albuterol/Ipratropium 3.0-0.5 MG/3 ML Neb Soln NEB SCH ×4 (07:31→19:53)
[2019-05-22] MEDS: Folic Acid 1 MG Tab PO SCH (07:32)
[2019-05-22] MEDS: Hydrochlorothiazide 25 MG Tab PO SCH (07:32)
[2019-05-22] MEDS: metFORMIN 500 MG Tab PO SCH ×2 (07:32→17:46)
[2019-05-22] MEDS: Lisinopril 10 MG Tab PO SCH (07:33)
[2019-05-22] MEDS: amLODIPine 10 MG Tab PO SCH (07:33)
[2019-05-22] MEDS: Pantoprazole 40 MG Vial IVPUSH SCH (07:34)
[2019-05-22] MEDS: Atenolol 50 MG Tab PO SCH (07:34)
[2019-05-22] MEDS: RIVAROXABAN 20 MG PO SCH (07:34)
[2019-05-22] MEDS: Insulin Lispro 100 Units/ML 3 ML Vial SUBCUT SCH ×4 (07:41→22:13)
[2019-05-22] MEDS: LIRAGLUTIDE 1.8 MG SUBCUT SCH (07:44)
[2019-05-22] MEDS: Levofloxacin/Dextrose 5%-Water 500 MG in Premix Bag 1 BAG IV SCH (15:02)
[2019-05-22] MEDS: Acetaminophen 325 MG Tab PO PRN (19:54)
[2019-05-23] MEDS: Albuterol/Ipratropium 3.0-0.5 MG/3 ML Neb Soln NEB SCH ×4 (08:23→20:23)
[2019-05-23] MEDS: Folic Acid 1 MG Tab PO SCH (08:24)
[2019-05-23] MEDS: metFORMIN 500 MG Tab PO SCH ×2 (08:24→16:29)
[2019-05-23] MEDS: Ferrous Sulfate 324 MG Tab.EC PO SCH ×2 (08:24→16:29)
[2019-05-23] MEDS: Hydrochlorothiazide 25 MG Tab PO SCH (08:24)
[2019-05-23] MEDS: Lisinopril 10 MG Tab PO SCH (08:25)
[2019-05-23] MEDS: Atenolol 50 MG Tab PO SCH (08:25)
[2019-05-23] MEDS: amLODIPine 10 MG Tab PO SCH (08:25)
[2019-05-23] MEDS: RIVAROXABAN 20 MG PO SCH (08:31)
[2019-05-23] MEDS: Insulin Lispro 100 Units/ML 3 ML Vial SUBCUT SCH ×4 (08:32→20:24)
[2019-05-23] MEDS: LIRAGLUTIDE 1.8 MG SUBCUT SCH (08:34)
[2019-05-23] MEDS: Levofloxacin/Dextrose 5%-Water 500 MG in Premix Bag 1 BAG IV SCH (15:39)
[2019-05-23] MEDS: Pantoprazole 40 MG Tab.CR PO SCH (16:29)
[2019-05-23] MEDS: Acetaminophen 325 MG Tab PO PRN (20:24)
[2019-05-24] MEDS: Lisinopril 10 MG Tab PO SCH (07:03)
[2019-05-24] MEDS: Atenolol 50 MG Tab PO SCH (07:03)
[2019-05-24] MEDS: Albuterol/Ipratropium 3.0-0.5 MG/3 ML Neb Soln NEB SCH ×4 (07:03→19:35)
[2019-05-24] MEDS: amLODIPine 10 MG Tab PO SCH (07:03)
[2019-05-24] MEDS: Folic Acid 1 MG Tab PO SCH (07:03)
[2019-05-24] MEDS: metFORMIN 500 MG Tab PO SCH ×2 (07:03→17:14)
[2019-05-24] MEDS: Pantoprazole 40 MG Tab.CR PO SCH ×2 (07:03→17:14)
[2019-05-24] MEDS: Ferrous Sulfate 324 MG Tab.EC PO SCH ×2 (07:03→17:14)
[2019-05-24] MEDS: Hydrochlorothiazide 25 MG Tab PO SCH (07:03)
[2019-05-24] MEDS: RIVAROXABAN 20 MG PO SCH (07:17)
[2019-05-24] MEDS: Insulin Lispro 100 Units/ML 3 ML Vial SUBCUT SCH ×4 (07:18→22:24)
[2019-05-24] MEDS: LIRAGLUTIDE 1.8 MG SUBCUT SCH (07:18)
[2019-05-24] MEDS: Levofloxacin/Dextrose 5%-Water 500 MG in Premix Bag 1 BAG IV SCH (15:06)
[2019-05-25] MEDS: Albuterol/Ipratropium 3.0-0.5 MG/3 ML Neb Soln NEB SCH (07:45)
[2019-05-25] MEDS: Atenolol 50 MG Tab PO SCH (07:46)
[2019-05-25] MEDS: Pantoprazole 40 MG Tab.CR PO SCH (07:46)
[2019-05-25] MEDS: Folic Acid 1 MG Tab PO SCH (07:46)
[2019-05-25] MEDS: Lisinopril 10 MG Tab PO SCH (07:46)
[2019-05-25] MEDS: Ferrous Sulfate 324 MG Tab.EC PO SCH (07:46)
[2019-05-25] MEDS: amLODIPine 10 MG Tab PO SCH (07:46)
[2019-05-25] MEDS: Hydrochlorothiazide 25 MG Tab PO SCH (07:46)
[2019-05-25] MEDS: metFORMIN 500 MG Tab PO SCH (07:47)
[2019-05-25] MEDS: LIRAGLUTIDE 1.8 MG SUBCUT SCH (07:47)
[2019-05-25] MEDS: Insulin Lispro 100 Units/ML 3 ML Vial SUBCUT SCH (07:50)
[2019-05-25 07:52] VITALS: BP 136/65
[2019-05-25] MEDS: RIVAROXABAN 20 MG PO SCH (07:52)
[2019-05-25 09:36] VITALS: PULSE 96
--- NOTE | 2019-05-25 15:53 | PCM.DCSUM1 ---
Discharge Summary - Hospital Course Free Text/Narrative:: Patient admitted swing bed for ongoing IV antibiotics for pneumonia. This is patient's 3rd hospitalization for pneumonia in the last few months. He states he was feeling good after the last visit but noted over time, cough and shortness of breath increasing again. Transferred to swing bed to receive full 10 day course of IV meds, nebs and monitoring of his diabetes. Diagnosis: Stroke: No Modified [place] Scale: No Symptoms at All Modified Prasanth Scale Score: 0 - Discharge Data Discharge Date: 05/25/19 Discharge Disposition: Home, Self-Care 01 Condition: Good - Referral to Home Health Primary Care Physician: Indra Watson MD - Patient Summary/Data Complications: none Hospital Course: Patient doing well. Is up and ambulatory, tolerating quite well. Has minimal complaints of shortness of breath now. Lung sounds are clear. Oxygen sats are good. He has a good appetite. Patient does not lie down much in the bed, has noted increased edema as a result. Relates that at home, edema improves by am and worsens over course of day. No pain in his legs. Will discharge home on Levaquin. If continues to have persisting issues with pneumonia, respiratory distress, may need to follow up with pulmonology. Follow up with Cristal on Wednesday as previously planned for diabetic exam. - Patient Instructions Diet: Diabetic Diet Activity: As Tolerated - Discharge Plan *PRESCRIPTION DRUG MONITORING PROGRAM REVIEWED*: No *COPY OF PRESCRIPTION DRUG MONITORING REPORT IN PATIENT MAICO: No Prescriptions/Med Rec: Levofloxacin [Levaquin] 500 mg PO DAILY #7 tablet Home Medications: Home Meds Acetaminophen [Tylenol] 650 mg PO Q4H PRN 04/24/13 [History] Ascorbic Acid [Vitamin C] 500 mg PO BID 04/24/13 [History] Atenolol [Tenormin] 50 mg PO DAILY 04/24/13 [History] Famotidine [Pepcid] 20 mg PO BID 04/24/13 [History] Ferrous Sulfate [Iron] 325 mg PO BID 04/24/13 [History] Folic Acid 1 mg PO DAILY 04/24/13 [History] Insulin Aspart [NovoLOG] 20 unit SUBCUT WITHLUNCH 04/24/13 [History] Insulin Glarg,Human.Rec.Analog [Lantus] 60 unit SQ BEDTIME 04/24/13 [History] Lisinopril [Zestril] 10 mg PO DAILY 04/24/13 [History] amLODIPine [Norvasc] 10 mg PO DAILY 04/24/13 [History] hydroCHLOROthiazide [Hydrochlorothiazide] 25 mg PO DAILY 04/24/13 [History] Magnesium 1,000 mg PO DAILY 01/27/15 [History] Multivitamin [Multivitamins] 1 tab PO DAILY 01/27/15 [History] Cholecalciferol (Vitamin D3) [Vitamin D3] 5,000 unit PO DAILY 09/07/15 [History] metFORMIN HCl [Metformin HCl] 1,000 mg PO BID 01/14/17 [History] Rosuvastatin Calcium 10 mg PO BEDTIME 02/03/17 [History] Albuterol/Ipratropium [DuoNeb 3.0-0.5 MG/3 ML] 1 vial NEB Q4H PRN 05/24/17 [ History] Liraglutide [Victoza] 1.8 mg SUBCUT DAILY 11/07/17 [History] Rivaroxaban [Xarelto] 20 mg PO DAILY 02/28/19 [History] Levofloxacin [Levaquin] 500 mg PO DAILY #7 tablet 05/24/19 [Rx] Patient Handouts: Community-Acquired Pneumonia, Adult Referrals: Cristal Allison PA-C [ED Midlevel Provider] - (Follow up with Cristal Allison in 7 days) - Discharge Summary/Plan Comment DC Time >30 min.: No - General Info Date of Service: 05/25/19 Admission Dx/Problem (Free Text: Pneumonia Functional Status: Reports: Pain Controlled, Tolerating Diet, Ambulating - Review of Systems General: Denies: Fever, Weakness, Fatigue HEENT: Reports: Rhinitis Pulmonary: Reports: Shortness of Breath. Denies: Cough, Sputum Cardiovascular: Reports: Edema. Denies: Chest Pain, Lightheadedness Gastrointestinal: Denies: Abdominal Pain, Nausea, Vomiting Genitourinary: Reports: No Symptoms Musculoskeletal: Reports: No Symptoms Skin: Reports: No Symptoms Neurological: Reports: Weakness - Patient Data Vitals - Most Recent: Last Vital Signs Temp 97.2 F 05/25/19 08:00 Pulse 96 05/25/19 08:00 Resp 20 05/25/19 08:00 BP 136/65 05/25/19 08:00 Pulse Ox 96 05/25/19 08:00 Weight - Most Recent: 328 lb 3.2 oz Lab Results - Last 24 hrs: Laboratory Results - last 24 hr 05/24/19 05/25/19 05/25/19 Range/Units 19:40 02:03 07:38 POC Glucose 135 H 141 H 166 H (75-105) mg/dl Med Orders - Current: Current Medications Discontinued Medications Acetaminophen (Tylenol) 650 mg PO Q4H PRN PRN Reason: Pain (Mild 1-3)/fever Last Admin: 05/23/19 20:24 Dose: 650 mg Albuterol/Ipratropium (Duoneb 3.0-0.5 Mg/3 Ml) 3 ml NEB QIDRT [facility] Last Admin: 05/25/19 07:45 Dose: 3 ml Amlodipine Besylate (Norvasc) 10 mg PO DAILY [facility] Last Admin: 05/25/19 07:46 Dose: 10 mg Atenolol (Tenormin) 50 mg PO DAILY [facility] Last Admin: 05/25/19 07:46 Dose: 50 mg Ferrous Sulfate (Ferrous Sulfate) 324 mg PO BID@0800,1700 [facility] Last Admin: 05/25/19 07:46 Dose: 324 mg Folic Acid (Folic Acid) 1 mg PO DAILY [facility] Last Admin: 05/25/19 07:46 Dose: 1 mg Hydrochlorothiazide (Hydrochlorothiazide) 25 mg PO DAILY [facility] Last Admin: 05/25/19 07:46 Dose: 25 mg Levofloxacin/Dextrose 500 mg/ (Premix) 100 mls @ 100 mls/hr IV Q24H [facility] Last Admin: 05/24/19 15:06 Dose: 100 mls/hr Insulin Human Lispro (Humalog) 0 unit SUBCUT WITHMEALSANDBED [facility]; Protocol Last Admin: 05/25/19 07:50 Dose: 3 units Insulin Human Regular (Novolin R) 0 unit SUBCUT 0800,1200,1700,2100 [facility]; Protocol Last Admin: 05/19/19 08:05 Dose: 1 unit Lisinopril (Prinivil) 10 mg PO DAILY [facility] Last Admin: 05/25/19 07:46 Dose: 10 mg Magnesium Oxide (Magnesium Oxide) 1,000 mg PO DAILY [facility] Last Admin: 05/25/19 07:47 Dose: 1,000 mg Metformin HCl (Glucophage) 1,000 mg PO BIDMEALS@0800,1700 [facility] Last Admin: 05/25/19 07:47 Dose: 1,000 mg Liraglutide 1.8 Mg (Own Med) 1.8 mg SUBCUT DAILY [facility] Last Admin: 05/25/19 07:47 Dose: 1.8 mg Rivaroxaban 20 Mg (Own Med) 20 mg PO DAILY [facility] Last Admin: 05/25/19 07:52 Dose: 20 mg Pantoprazole Sodium (Protonix Iv) 40 mg IVPUSH Q24H [facility] Last Admin: 05/22/19 07:34 Dose: 40 mg Pantoprazole Sodium (Protonix) 40 mg PO BIDAC [facility] Last Admin: 05/25/19 07:46 Dose: 40 mg Sodium Chloride (Saline Flush) 10 ml FLUSH ASDIRECTED PRN PRN Reason: Keep Vein Open Sodium Chloride (Saline Flush) 10 ml FLUSH ASDIRECTED PRN PRN Reason: Keep Vein Open - Exam General: Reports: Alert, Oriented HEENT: Reports: Mucous Membr. Moist/[place] Neck: Reports: Supple Lungs: Reports: Clear to Auscultation, Normal Respiratory Effort Cardiovascular: Reports: Regular Rate, Regular Rhythm GI/Abdominal Exam: Normal Bowel Sounds, Soft, Non-Tender Extremities: Normal Inspection, Pedal Edema (2-3+ pitting edema in lower extremities) Skin: Reports: Warm, Dry Neurological: Reports: No New Focal Deficit
== END 2019-05-25 10:45 | disposition home or self-care (01) | DRG 179 ==
LOC: CC.MS 09:06 → UNDOADMIN 09:12
PROVIDERS: ADMIT Physician Assistant Medical; ATTEND Family Medicine
DX: J15.6 Pneumonia due to other Gram-negative bacteria (principal); E11.9 Type 2 diabetes mellitus without complications; Z79.899 Other long term (current) drug therapy; Z79.4 Long term (current) use of insulin
CPT/HCPCS: 36415; 80048; 82962; 85025; 86140; 94640; A9270-GY; C9113; J1817-GY; J1956; J7620-GY

== ENCOUNTER 2019-07-18 15:32 | Inpatient (IN) | payer MEDICAID ==
[2019-07-18 15:36] LABS: O2 DELIVERY DEVICE NASAL CANNULA; O2 FLOW RATE 2
[2019-07-18 15:55] LABS: BICARBONATE,ARTERIAL 27.6 mm/L (22.0-26.0); O2 SATURATION ARTERIAL 94 % (95-98); PCO2 ARTERIAL 44 mm/Hg0 (35-45); PO2 ARTERIAL 71 mm/Hg (80-100)
[2019-07-18 16:08] LABS: CHLORIDE,CL 100 mEq/L (98-106); SODIUM,NA 138 mEq/L (136-145)
[2019-07-18] MEDS ORDERED: Sodium Chloride 0.9% 10 ML Syringe FLUSH PRN (16:39)
[2019-07-18] MEDS ORDERED: Docusate Sodium 100 MG Cap PO PRN (16:39)
[2019-07-18] MEDS ORDERED: Acetaminophen 325 MG Tab PO PRN (16:39)
[2019-07-18] MEDS ORDERED: cefTRIAXone 1 GM Vial IVPUSH SCH (17:00)
[2019-07-18] MEDS ORDERED: Acetaminophen 500 MG Tab PO ONE (17:53)
[2019-07-18] MEDS ORDERED: Azithromycin 500 MG in Sodium Chloride 0.9% 250 ML IV SCH (18:00)
[2019-07-18 18:38] VITALS: BP 148/55
--- NOTE | 2019-07-18 18:54 | PCM.DCSUM1 ---
Discharge Summary - Hospital Course Free Text/Narrative:: Nathaniel is a 54 yo male who was initially seen in the clinic today for increased shortness of breath that started a few days ago. He has been seeing pulmonology at [facility] in [place] and just recently had a CT of the chest. He stated today his breath progressively worsened and was having a fever. Initiall oxygen saturation was mid to high 80's in clinic. Patient was placed on oxygen via nasal cannula which did improve O2 saturation to 98%. Laboratory work up from clinic did show a mildly elevated CRP, normal WBC and lactic acid level. Chest x -ray did confirm right lower lobe pneumonitis. Patient was admitted to hospital for IV antibiotics and oxygen therapy. Nursing staff did call with concerns of Nathaniel becoming unresponsive while she was attending to him in his room. Nurse did state he stopped breathing and had a faint pulse. Sternal rub did not change unresponsive status. Upon my arrival to the room, patient was alert and did appear diaphoretic with increase work of breathing. Patient was placed on nonrebreather which did bring oxygen saturation back to 94%. Respiratory rate of [address] Pardo, hospitalist, at [facility] in [place] who kindly accepted transfer. Patient to be transferred via ALS. Patient did receive 1 gram of Rocephin and 500mg of Azithromycin while in hospital. Risks and benefits of transfer discussed with Nathaniel. Risks of transfer included worsening of breathing, MVA or . Benefits of transfer included appropriate level of care, hospitalist. Risks of non transfer included worsening of condition or . Benefits of non-transfer include close to home and familiar environment. Patient did verbalize understanding and was in agreement with transfer via ALS. Brief History: Patient admitted with Right Lower Lobe pneumonia and hypoxia. Diagnosis: Stroke: No - Discharge Data Discharge Date: 07/18/19 Discharge Disposition: DC/Tfer to Acute Hospital 02 Condition: Serious - Referral to Home Health Primary Care Physician: Cristal Allison PA-C - Discharge Diagnosis/Problem(s) (1) Respiratory distress, acute SNOMED Code(s): 643441494 ICD Code: R06.03 - ACUTE RESPIRATORY DISTRESS Status: Acute Current Visit : Yes (2) Pneumonia SNOMED Code(s): 312941850 ICD Code: J18.9 - PNEUMONIA, UNSPECIFIED ORGANISM Status: Acute Priority : High Current Visit: No Qualifiers: Pneumonia type: due to other aerobic Gram-negative bacteria Laterality: right Lung location: lower lobe of lung Qualified Code(s): J15.6 - Pneumonia due to other Gram-negative bacteria - Discharge Plan Home Medications: Home Meds Acetaminophen [Tylenol] 650 mg PO Q4H PRN 04/24/13 [History] Ascorbic Acid [Vitamin C] 500 mg PO BID 04/24/13 [History] Atenolol [Tenormin] 50 mg PO DAILY 04/24/13 [History] Famotidine [Pepcid] 20 mg PO BID 04/24/13 [History] Ferrous Sulfate [Iron] 325 mg PO BID 04/24/13 [History] Folic Acid 1 mg PO DAILY 04/24/13 [History] Insulin Aspart [NovoLOG] 20 unit SUBCUT WITHLUNCH 04/24/13 [History] Insulin Glarg,Human.Rec.Analog [Lantus] 60 unit SQ BEDTIME 04/24/13 [History] Lisinopril [Zestril] 10 mg PO DAILY 04/24/13 [History] amLODIPine [Norvasc] 10 mg PO DAILY 04/24/13 [History] hydroCHLOROthiazide [Hydrochlorothiazide] 25 mg PO DAILY 04/24/13 [History] Magnesium 1,000 mg PO DAILY 01/27/15 [History] Multivitamin [Multivitamins] 1 tab PO DAILY 01/27/15 [History] Cholecalciferol (Vitamin D3) [Vitamin D3] 5,000 unit PO DAILY 09/07/15 [History] metFORMIN HCl [Metformin HCl] 1,000 mg PO BID 01/14/17 [History] Rosuvastatin Calcium 10 mg PO BEDTIME 02/03/17 [History] Albuterol/Ipratropium [DuoNeb 3.0-0.5 MG/3 ML] 1 vial NEB Q4H PRN 05/24/17 [ History] Liraglutide [Victoza] 1.8 mg SUBCUT DAILY 11/07/17 [History] Rivaroxaban [Xarelto] 20 mg PO DAILY 02/28/19 [History] Albuterol Sulfate [Proair Hfa] 2 puff INH Q4HR PRN 07/18/19 [History] Umeclidinium Brm/Vilanterol Tr [Anoro Ellipta 62.5-25 MCG] 1 puff INH DAILY [History] - Discharge Summary/Plan Comment DC Time >30 min.: Yes - General Info Date of Service: 07/18/19 Functional Status: Reports: New Symptoms - Review of Systems General: Reports: Fever, Weakness, Chills HEENT: Reports: No Symptoms Pulmonary: Reports: Shortness of Breath, Cough, Wheezing Cardiovascular: Reports: Dyspnea on Exertion. Denies: Chest Pain, Palpitations Gastrointestinal: Reports: No Symptoms Genitourinary: Reports: No Symptoms Neurological: Reports: No Symptoms - Patient Data Vitals - Most Recent: Last Vital Signs Temp 100.4 F 07/18/19 18:34 Pulse 103 H 07/18/19 18:20 Resp 22 H 07/18/19 18:34 BP 148/55 H 07/18/19 18:34 Pulse Ox 98 07/18/19 18:34 Weight - Most Recent: 350 lb Lab Results - Last 24 hrs: Laboratory Results - last 24 hr 07/18/19 07/18/19 07/18/19 Range/Units 15:34 15:34 15:34 WBC 8.5 (5.0-10.0) 10^3/uL RBC 5.14 (4.50-6.00) 10^6/uL Hgb 12.3 L (14.0-18.0) g/dL Hct 41.1 (40.0-54.0) % MCV 80.0 L (82.0-94.0) fL MCH 23.9 L (27.0-32.0) pg MCHC 29.9 L (33.0-38.0) g/dL RDW Coeff of Sophie 17.4 H (11.0-15.0) % Plt Count 258 (150-400) 10^3/uL Neut % (Auto) 85.4 H (35-85) % Lymph % (Auto) 6.0 L (10-55) % [place] % (Auto) 7.6 (0-16) % Eos % (Auto) 0.6 (0-5) % Baso % (Auto) 0.4 (0-3) % Neut # (Auto) 7.26 H (1.80-7.00) 10^3/uL Lymph # (Auto) 0.51 L (1.00-4.80) 10^3/uL [place] # (Auto) 0.65 (0.00-0.80) 10^3/uL Eos # (Auto) 0.05 (0.00-0.45) 10^3/uL Baso # (Auto) 0.03 10^3/uL D-Dimer, Quantitative (0.00-0.50) ABG pH (7.35-7.45) ABG pCO2 (35-45) mm/Hg0 ABG pO2 (80-100) mm/Hg ABG HCO3 (22.0-26.0) mm/L ABG O2 Saturation (95-98) % ABG Base Excess (-2.0-3.0) O2 Delivery Device Oxygen Flow Rate Sodium 138 (136-145) mEq/L Potassium 4.0 (3.5-5.0) mEq/L Chloride 100 (98-106) mEq/L Carbon Dioxide 29 (21-32) mmol/L BUN 18 (7-18) mg/dL Creatinine 1.1 (0.7-1.3) mg/dL Est Cr Clr Drug Dosing TNP Estimated GFR (MDRD) > 60 (>=60) mL/min Glucose 102 H D (75-99) mg/dL Lactic Acid 1.3 (0.4-2.0) mmol/L Calcium 9.5 (8.4-10.1) mg/dL Total Bilirubin 0.5 (0.0-1.0) mg/dL AST 18 (15-37) U/L ALT 29 (12-78) U/L Alkaline Phosphatase 135 H (46-116) U/L Lactate Dehydrogenase (100-190) U/L Creatine Kinase (35-232) U/L Troponin I (0.00-0.06) ng/mL C-Reactive Protein 2.3 H (0.2-0.8) mg/dL NT-Pro-B Natriuret Pep (0-1000) pg/mL Total Protein 7.4 (6.4-8.2) g/dL Albumin 3.6 (3.4-5.0) g/dL 07/18/19 07/18/19 07/18/19 Range/Units 15:34 16:39 17:46 WBC (5.0-10.0) 10^3/uL RBC (4.50-6.00) 10^6/uL Hgb (14.0-18.0) g/dL Hct (40.0-54.0) % MCV (82.0-94.0) fL MCH (27.0-32.0) pg MCHC (33.0-38.0) g/dL RDW Coeff of Sophie (11.0-15.0) % Plt Count (150-400) 10^3/uL Neut % (Auto) (35-85) % Lymph % (Auto) (10-55) % [place] % (Auto) (0-16) % Eos % (Auto) (0-5) % Baso % (Auto) (0-3) % Neut # (Auto) (1.80-7.00) 10^3/uL Lymph # (Auto) (1.00-4.80) 10^3/uL [place] # (Auto) (0.00-0.80) 10^3/uL Eos # (Auto) (0.00-0.45) 10^3/uL Baso # (Auto) 10^3/uL D-Dimer, Quantitative (0.00-0.50) ABG pH 7.41 (7.35-7.45) ABG pCO2 44 (35-45) mm/Hg0 ABG pO2 71 L (80-100) mm/Hg ABG HCO3 27.6 H (22.0-26.0) mm/L ABG O2 Saturation 94 L (95-98) % ABG Base Excess 3.0 (-2.0-3.0) O2 Delivery Device Nasal cannula Oxygen Flow Rate 2 Sodium (136-145) mEq/L Potassium (3.5-5.0) mEq/L Chloride (98-106) mEq/L Carbon Dioxide (21-32) mmol/L BUN (7-18) mg/dL Creatinine (0.7-1.3) mg/dL Est Cr Clr Drug Dosing Estimated GFR (MDRD) (>=60) mL/min Glucose (75-99) mg/dL Lactic Acid (0.4-2.0) mmol/L Calcium (8.4-10.1) mg/dL Total Bilirubin (0.0-1.0) mg/dL AST (15-37) U/L ALT (12-78) U/L Alkaline Phosphatase (46-116) U/L Lactate Dehydrogenase 153 (100-190) U/L Creatine Kinase 107 (35-232) U/L Troponin I < 0.017 (0.00-0.06) ng/mL C-Reactive Protein (0.2-0.8) mg/dL NT-Pro-B Natriuret Pep 145 (0-1000) pg/mL Total Protein (6.4-8.2) g/dL Albumin (3.4-5.0) g/dL 07/18/19 Range/Units 17:46 WBC (5.0-10.0) 10^3/uL RBC (4.50-6.00) 10^6/uL Hgb (14.0-18.0) g/dL Hct (40.0-54.0) % MCV (82.0-94.0) fL MCH (27.0-32.0) pg MCHC (33.0-38.0) g/dL RDW Coeff of Sophie (11.0-15.0) % Plt Count (150-400) 10^3/uL Neut % (Auto) (35-85) % Lymph % (Auto) (10-55) % [place] % (Auto) (0-16) % Eos % (Auto) (0-5) % Baso % (Auto) (0-3) % Neut # (Auto) (1.80-7.00) 10^3/uL Lymph # (Auto) (1.00-4.80) 10^3/uL [place] # (Auto) (0.00-0.80) 10^3/uL Eos # (Auto) (0.00-0.45) 10^3/uL Baso # (Auto) 10^3/uL D-Dimer, Quantitative 0.56 H (0.00-0.50) ABG pH (7.35-7.45) ABG pCO2 (35-45) mm/Hg0 ABG pO2 (80-100) mm/Hg ABG HCO3 (22.0-26.0) mm/L ABG O2 Saturation (95-98) % ABG Base Excess (-2.0-3.0) O2 Delivery Device Oxygen Flow Rate Sodium (136-145) mEq/L Potassium (3.5-5.0) mEq/L Chloride (98-106) mEq/L Carbon Dioxide (21-32) mmol/L BUN (7-18) mg/dL Creatinine (0.7-1.3) mg/dL Est Cr Clr Drug Dosing Estimated GFR (MDRD) (>=60) mL/min Glucose (75-99) mg/dL Lactic Acid (0.4-2.0) mmol/L Calcium (8.4-10.1) mg/dL Total Bilirubin (0.0-1.0) mg/dL AST (15-37) U/L ALT (12-78) U/L Alkaline Phosphatase (46-116) U/L Lactate Dehydrogenase (100-190) U/L Creatine Kinase (35-232) U/L Troponin I (0.00-0.06) ng/mL C-Reactive Protein (0.2-0.8) mg/dL NT-Pro-B Natriuret Pep (0-1000) pg/mL Total Protein (6.4-8.2) g/dL Albumin (3.4-5.0) g/dL ESTELLE Results - Last 24 hrs: Microbiology 07/18/19 15:34 Influenza Type A Antigen Screen - Final Nasopharyngeal Swab NEGATIVE INFLUENZA A VIRUS AG REFERENCE RANGE: NEGATIVE Influenza Type B Antigen Screen - Final NEGATIVE INFLUENZA B VIRUS AG REFERENCE RANGE: NEGATIVE Med Orders - Current: Current Medications Acetaminophen (Tylenol) 650 mg PO Q4H PRN PRN Reason: Pain (Mild 1-3)/fever Albuterol/Ipratropium (Duoneb 3.0-0.5 Mg/3 Ml) 3 ml NEB QID [facility] Ceftriaxone Sodium (Rocephin) 1 gm IVPUSH Q24H [facility] Last Admin: 07/18/19 17:38 Dose: 1 gm Docusate Sodium (Colace) 100 mg PO BID PRN PRN Reason: Constipation Azithromycin 500 mg/ Sodium (Chloride) 250 mls @ 250 mls/hr IV Q24H [facility] Last Admin: 07/18/19 18:33 Dose: 250 mls/hr Sodium Chloride (Saline Flush) 10 ml FLUSH ASDIRECTED PRN PRN Reason: Keep Vein Open Discontinued Medications Acetaminophen (Tylenol Extra Strength) 1,000 mg PO ONETIME ONE Stop: 07/18/19 17:54 Last Admin: 07/18/19 17:53 Dose: 1,000 mg - Exam Quality Assessment: Reports: Supplemental Oxygen General: Reports: Alert, Moderate Distress HEENT: Reports: Pupils Equal, Pupils Reactive, Mucous Membr. Moist/[place] Neck: Reports: Supple Lungs: Reports: Decreased Breath Sounds, Other (increased respiratory effort, abdominal breathing) Cardiovascular: Reports: No Murmurs, Tachycardia GI/Abdominal Exam: Normal Bowel Sounds, Soft, Non-Tender, No Distention, Other ( obese) Extremities: Pedal Edema (2+ pedal edema) Skin: Reports: Other (increased warmth, diophoretic) Neurological: Reports: No New Focal Deficit Psy/Mental Status: Reports: Anxious EKG INTERPRETATION EKG Date: 07/18/19 Time: 17:45 Rhythm: Other (sinus tachycardia) Rate (Beats/Min): 113 [place]: Normal QRS: Normal ST-T: Normal QT: Normal Comparison: NA - No Prior EKG
[2019-07-18 19:01] VITALS: PULSE 96
[2019-07-18] MEDS ORDERED: Albuterol/Ipratropium 3.0-0.5 MG/3 ML Neb Soln NEB SCH (20:00)
== END 2019-07-18 19:20 | DRG 179 ==
LOC: CC.MS 15:32 → CC.FCMC 15:32 → CC.MS 16:22 → UNDOADMIN 16:22 → CC.MS 16:39
PROVIDERS: ADMIT Physician Assistant Medical; ATTEND Family Medicine
DX: J15.6 Pneumonia due to other Gram-negative bacteria (principal); R06.03 Acute respiratory distress; N40.0 Benign prostatic hyperplasia without lower urinary tract symptoms; J44.9 Chronic obstructive pulmonary disease, unspecified; K21.9 Gastro-esophageal reflux disease without esophagitis; E78.5 Hyperlipidemia, unspecified; I10 Essential (primary) hypertension; E66.01 Morbid (severe) obesity due to excess calories; I48.0 Paroxysmal atrial fibrillation; E11.9 Type 2 diabetes mellitus without complications; E55.9 Vitamin D deficiency, unspecified; Z88.1 Allergy status to other antibiotic agents; Z79.51 Long term (current) use of inhaled steroids; Z79.4 Long term (current) use of insulin; Z79.01 Long term (current) use of anticoagulants; Z79.899 Other long term (current) drug therapy; Z98.890 Other specified postprocedural states; Z99.81 Dependence on supplemental oxygen
CPT/HCPCS: 36415; 36600; 71046; 80053; 82550; 82803; 82962; 83605; 83615; 83880; 84484; 85025; 85379; 86140; 87040; 87804; A9270-GY; J0456; J0696; J7050

== ENCOUNTER 2020-03-15 16:44 | Emergency (ER) | payer MEDICAID, OTHER ==
[2020-03-15 17:39] LABS: CHLORIDE,CL 98 mEq/L (98-106); SODIUM,NA 136 mEq/L (136-145)
[2020-03-15] MEDS ORDERED: Acetaminophen 325 MG Tab PO ONE (17:55)
--- NOTE | 2020-03-15 18:30 | EDM.PDOC ---
ED HPI GENERAL MEDICAL PROBLEM - General Chief Complaint: General Stated Complaint: COVID SYMPTOMS Time Seen by Provider: 03/15/20 17:00 Source of Information: Reports: Patient History Limitations: Reports: No Limitations - History of Present Illness INITIAL COMMENTS - FREE TEXT/NARRATIVE: Nathaniel is a 55 year old male who presents to the ER with complaints of weakness and a headache. "is worried about COVID". Noted a headache starting about 4 hours ago. Relates yesterday he felt like his eyes felt like when they get dilated at the eye doctor and now today, he developed a headache. No fevers. Did vomit x1 earlier today. No increased shortness of breath. No nausea at present. Denies abdominal pain. Has had mild cough. Onset: Today, Gradual Duration: Hour(s): Location: Reports: Head Quality: Reports: Ache Severity: Mild Associated Symptoms: Reports: Cough, Headaches, Malaise. Denies: Confusion, Chest Pain, cough w sputum, Fever/Chills, Loss of Appetite, Nausea/Vomiting, Shortness of Breath Headache Pain Score (Numeric/FACES): 1 - Related Data Allergies Allergy/AdvReac Type Severity Reaction Status Date / Time pneumococcal vaccine Allergy Cannot Verified 07/18/19 17:11 Remember sulfamethoxazole Allergy Shortness Verified 07/18/19 17:11 [From Bactrim] of Breath trimethoprim [From Bactrim] Allergy Shortness Verified 07/18/19 17:11 of Breath Home Meds: Home Meds Acetaminophen [Tylenol] 650 mg PO Q4H PRN 04/24/13 [History] Ascorbic Acid [Vitamin C] 500 mg PO BID 04/24/13 [History] Atenolol [Tenormin] 50 mg PO DAILY 04/24/13 [History] Famotidine [Pepcid] 20 mg PO BID 04/24/13 [History] Ferrous Sulfate [Iron] 325 mg PO BID 04/24/13 [History] Folic Acid 1 mg PO DAILY 04/24/13 [History] Insulin Aspart [NovoLOG] 20 unit SUBCUT WITHLUNCH 04/24/13 [History] Insulin Glarg,Human.Rec.Analog [Lantus] 60 unit SQ BEDTIME 04/24/13 [History] Lisinopril [Zestril] 10 mg PO DAILY 04/24/13 [History] amLODIPine [Norvasc] 10 mg PO DAILY 04/24/13 [History] hydroCHLOROthiazide [Hydrochlorothiazide] 25 mg PO DAILY 04/24/13 [History] Magnesium 1,000 mg PO DAILY 01/27/15 [History] Multivitamin [Multivitamins] 1 tab PO DAILY 01/27/15 [History] Cholecalciferol (Vitamin D3) [Vitamin D3] 5,000 unit PO DAILY 09/07/15 [History] metFORMIN HCl [Metformin HCl] 1,000 mg PO BID 01/14/17 [History] Rosuvastatin Calcium 10 mg PO BEDTIME 02/03/17 [History] Albuterol/Ipratropium [DuoNeb 3.0-0.5 MG/3 ML] 1 vial NEB Q4H PRN 05/24/17 [History] Liraglutide [Victoza] 1.8 mg SUBCUT DAILY 11/07/17 [History] Rivaroxaban [Xarelto] 20 mg PO DAILY 02/28/19 [History] Albuterol Sulfate [Proair Hfa] 2 puff INH Q4HR PRN 07/18/19 [History] Umeclidinium Brm/Vilanterol Tr [Anoro Ellipta 62.5-25 MCG] 1 puff INH DAILY 07/18/19 [History] Past Medical History HEENT History: Reports: Impaired Vision, Other (See Below) Other HEENT History: right hearing loss due to cerumen impaction, TMJ syndrome Cardiovascular History: Reports: Afib, High Cholesterol, Hypertension, SOB on Exertion, Other (See Below) Other Cardiovascular History: systolic murmur of aorta Respiratory History: Reports: Pneumonia, Recurrent, SOB Gastrointestinal History: Reports: GERD Genitourinary History: Reports: BPH, Chronic Renal Insuffiency, Other (See Below) Other Genitourinary History: nocturia, low testosterone Musculoskeletal History: Reports: Arthritis, Back Pain, Chronic, Other (See Below) Other Musculoskeletal History: back pain with sciatica Endocrine/Metabolic History: Reports: Diabetes, Type II, Obesity/BMI 30+, Vitamin D Deficiency Hematologic History: Reports: Other (See Below) Other Hematologic History: vitamin D deficiency Dermatologic History: Reports: Other (See Below) Other Dermatologic History: history of candidiasis and cellulitis of umbilicus, hx of inflamed seborrheic keratosis - Infectious Disease History Infectious Disease History: Reports: MRSA - Past Surgical History GI Surgical History: Reports: Other (See Below) Other GI Surgeries/Procedures: panniculectomy Social & Family History - Family History Family Medical History: Noncontributory Endocrine/Metabolic: Reports: Diabetes, type II, Obesity/MBI 30+ - Caffeine Use Caffeine Use: Reports: None - Living Situation & Occupation Living situation: Reports: Single Occupation: Unemployed ED ROS GENERAL - Review of Systems Review Of Systems: See Below Constitutional: Reports: Malaise, Weakness, Fatigue. Denies: Fever, Chills HEENT: Reports: Rhinitis. Denies: Throat Pain Respiratory: Denies: Shortness of Breath, Wheezing, Cough Cardiovascular: Denies: Chest Pain, Blood Pressure Problem, Lightheadedness Endocrine: Reports: Fatigue GI/Abdominal: Denies: Abdominal Pain, Decreased Appetite, Nausea, Vomiting : Reports: No Symptoms Musculoskeletal: Reports: No Symptoms Skin: Reports: No Symptoms Neurological: Reports: Headache, Weakness ED EXAM, GENERAL - Physical Exam Exam: See Below Exam Limited By: No Limitations General Appearance: Alert, WD/WN, No Apparent Distress Ears: Normal External Exam, Normal TMs Nose: Normal Inspection, Normal Mucosa, No Blood Throat/Mouth: Normal Inspection, Normal Oropharynx Head: Normocephalic Neck: Normal Inspection, Supple, Non-Tender Respiratory/Chest: No Respiratory Distress, Decreased Breath Sounds, Rhonchi Cardiovascular: Regular Rate, Rhythm GI/Abdominal: Normal Bowel Sounds, Soft, Non-Tender Extremities: Normal Inspection, Pedal Edema Neurological: Alert, Oriented, CN II-XII Intact, Normal Cognition, Normal Gait, Normal Reflexes, No Motor/Sensory Deficits Skin Exam: Warm, Dry Course - Vital Signs Last Recorded V/S: Last Vital Signs Temp 97.6 F 03/15/20 17:00 Pulse 98 03/15/20 18:30 Resp 16 03/15/20 18:30 BP 153/82 H 03/15/20 18:30 Pulse Ox 99 03/15/20 18:30 - Orders/Labs/Meds Orders: Active Orders 24 hr Category Date Time Status Chest 2V [CR] Stat Exams 03/15/20 17:11 Taken Labs: Laboratory Tests 03/15/20 03/15/20 03/15/20 Range/Units 16:40 17:18 17:18 WBC 13.8 H (5.0-10.0) 10^3/uL RBC 6.62 H (4.50-6.00) 10^6/uL Hgb 17.9 (14.0-18.0) g/dL Hct 53.1 (40.0-54.0) % MCV 80.2 L (82.0-94.0) fL MCH 27.0 (27.0-32.0) pg MCHC 33.7 (33.0-38.0) g/dL RDW Coeff of Sophie 17.7 H (11.0-15.0) % Plt Count 186 (150-400) 10^3/uL Neut % (Auto) 86.2 H (35-85) % Lymph % (Auto) 7.9 L (10-55) % [place] % (Auto) 5.5 (0-16) % Eos % (Auto) 0.1 (0-5) % Baso % (Auto) 0.3 (0-3) % Neut # (Auto) 11.87 H (1.80-7.00) 10^3/uL Lymph # (Auto) 1.09 (1.00-4.80) 10^3/uL [place] # (Auto) 0.76 (0.00-0.80) 10^3/uL Eos # (Auto) 0.02 (0.00-0.45) 10^3/uL Baso # (Auto) 0.04 10^3/uL Sodium 136 (136-145) mEq/L Potassium 3.8 (3.5-5.0) mEq/L Chloride 98 (98-106) mEq/L Carbon Dioxide 32 (21-32) mmol/L BUN 14 (7-18) mg/dL Creatinine 1.0 (0.7-1.3) mg/dL Est Cr Clr Drug Dosing TNP Estimated GFR (MDRD) > 60 (>=60) mL/min Glucose 177 H (75-99) mg/dL Calcium 9.4 (8.4-10.1) mg/dL Total Bilirubin 0.5 (0.0-1.0) mg/dL AST 23 (15-37) U/L ALT 51 (12-78) U/L Alkaline Phosphatase 92 (46-116) U/L Troponin I < 0.017 (0.00-0.06) ng/mL C-Reactive Protein 0.4 (0.2-0.8) mg/dL Total Protein 7.1 (6.4-8.2) g/dL Albumin 3.4 (3.4-5.0) g/dL Urine Color (YELLOW) Urine Appearance (CLEAR) Urine pH (4.5-8.0) Ur Specific [place] (1.003-1.020) Urine Protein (NEGATIVE) mg/dL Urine Glucose (UA) (NEGATIVE) mg/dL Urine Ketones (NEGATIVE) mg/dL Urine Occult Blood (NEGATIVE) Urine Nitrite (NEGATIVE) Urine Bilirubin (NEGATIVE) Urine Urobilinogen (0.2-1.0) EU/dL Ur Leukocyte Esterase (NEGATIVE) Urine RBC (0-5) /HPF Urine WBC (0-5) /HPF Ur Squamous Epith Cells (NOT SEEN) /HPF Urine Bacteria (NOT SEEN) /HPF Urine Mucus (NOT SEEN) /HPF SARS CoV-2 RNA Rapid SILVANA Negative (NEGATIVE) 03/15/20 Range/Units 17:45 WBC (5.0-10.0) 10^3/uL RBC (4.50-6.00) 10^6/uL Hgb (14.0-18.0) g/dL Hct (40.0-54.0) % MCV (82.0-94.0) fL MCH (27.0-32.0) pg MCHC (33.0-38.0) g/dL RDW Coeff of Sophie (11.0-15.0) % Plt Count (150-400) 10^3/uL Neut % (Auto) (35-85) % Lymph % (Auto) (10-55) % [place] % (Auto) (0-16) % Eos % (Auto) (0-5) % Baso % (Auto) (0-3) % Neut # (Auto) (1.80-7.00) 10^3/uL Lymph # (Auto) (1.00-4.80) 10^3/uL [place] # (Auto) (0.00-0.80) 10^3/uL Eos # (Auto) (0.00-0.45) 10^3/uL Baso # (Auto) 10^3/uL Sodium (136-145) mEq/L Potassium (3.5-5.0) mEq/L Chloride (98-106) mEq/L Carbon Dioxide (21-32) mmol/L BUN (7-18) mg/dL Creatinine (0.7-1.3) mg/dL Est Cr Clr Drug Dosing Estimated GFR (MDRD) (>=60) mL/min Glucose (75-99) mg/dL Calcium (8.4-10.1) mg/dL Total Bilirubin (0.0-1.0) mg/dL AST (15-37) U/L ALT (12-78) U/L Alkaline Phosphatase (46-116) U/L Troponin I (0.00-0.06) ng/mL C-Reactive Protein (0.2-0.8) mg/dL Total Protein (6.4-8.2) g/dL Albumin (3.4-5.0) g/dL Urine Color Yellow (YELLOW) Urine Appearance Slightly cloudy (CLEAR) Urine pH 7.5 (4.5-8.0) Ur Specific [place] 1.025 H (1.003-1.020) Urine Protein >=300 H (NEGATIVE) mg/dL Urine Glucose (UA) 100 H (NEGATIVE) mg/dL Urine Ketones Trace H (NEGATIVE) mg/dL Urine Occult Blood Trace-intact H (NEGATIVE) Urine Nitrite Negative (NEGATIVE) Urine Bilirubin Negative (NEGATIVE) Urine Urobilinogen 0.2 (0.2-1.0) EU/dL Ur Leukocyte Esterase Negative (NEGATIVE) Urine RBC 5-10 H (0-5) /HPF Urine WBC 0-5 (0-5) /HPF Ur Squamous Epith Cells Not seen (NOT SEEN) /HPF Urine Bacteria Rare (NOT SEEN) /HPF Urine Mucus Occasional H (NOT SEEN) /HPF SARS CoV-2 RNA Rapid SILVANA (NEGATIVE) Meds: Medications Discontinued Medications Generic Name Dose Route Start Last Admin Trade Name Freq PRN Reason Stop Dose Admin Acetaminophen 650 mg 03/15/20 17:55 03/15/20 18:06 Tylenol PO 03/15/20 17:56 650 mg NOW ONE Administration - Re-Assessments/Exams Free Text/Narrative Re-Assessment/Exam: 03/15/20 Labs are all essentially. Chest xray appears unchanged. Tylenol given and expresses feeling better. Departure - Departure Time of Disposition: 18:29 Disposition: Home, Self-Care 01 Condition: Good Clinical Impression: Headache Qualifiers: Headache type: other headache syndrome Qualified Code(s): G44.89 - Other headache syndrome - Discharge Information *PRESCRIPTION DRUG MONITORING PROGRAM REVIEWED*: No *COPY OF PRESCRIPTION DRUG MONITORING REPORT IN PATIENT MAICO: No Referrals: Remy Allison PA-C [Primary Care Provider] - Forms: ED Department Discharge Additional Instructions: 1. Rest 2. Push fluids 3. Tylenol or ibuprofen for fever or discomfort 4. Follow up if persisting concerns. Sepsis Event Note (ED) - Evaluation Sepsis Screening Result: No Definite Risk - Focused Exam Vital Signs: Vital Signs Temp Pulse Resp BP Pulse Ox 03/15/20 18:30 98 16 153/82 H 99 03/15/20 17:00 97.6 F 105 H 20 177/88 H 93 L - My Orders Last 24 Hours: My Active Orders 03/15/20 17:11 Chest 2V [CR] Stat - Assessment/Plan Last 24 Hours: My Active Orders 03/15/20 17:11 Chest 2V [CR] Stat
[2020-03-15 19:33] VITALS: BP 153/82; PULSE 98
== END 2020-03-15 18:40 | disposition home or self-care (01) ==
LOC: CC.ED 16:44
DX: G44.89 Other headache syndrome (principal); I48.91 Unspecified atrial fibrillation; E78.00 Pure hypercholesterolemia, unspecified; K21.9 Gastro-esophageal reflux disease without esophagitis; E11.22 Type 2 diabetes mellitus with diabetic chronic kidney disease; I12.9 Hypertensive chronic kidney disease with stage 1 through stage 4 chronic kidney disease, or unspecified chronic kidney disease; N18.9 Chronic kidney disease, unspecified; E66.9 Obesity, unspecified; Z20.828 Contact with and (suspected) exposure to other viral communicable diseases; Z88.7 Allergy status to serum and vaccine; Z88.2 Allergy status to sulfonamides; Z88.1 Allergy status to other antibiotic agents; Z79.4 Long term (current) use of insulin; Z79.899 Other long term (current) drug therapy; Z79.01 Long term (current) use of anticoagulants
CPT/HCPCS: 36415; 71046; 80053; 81001; 84484; 85025; 86140; 99284-25; A9270-GY; U0002

== ENCOUNTER 2020-03-17 14:41 | Emergency (ER) | payer MEDICAID ==
[2020-03-17] MEDS ORDERED: Ondansetron 4 MG/2 ML SDV IVPUSH STA (14:55)
--- NOTE | 2020-03-17 15:06 | EDM.PDOC ---
ED HPI GENERAL MEDICAL PROBLEM - General Chief Complaint: Headache Stated Complaint: Headache Time Seen by Provider: 03/17/20 14:45 Source of Information: Reports: Patient History Limitations: Reports: No Limitations - History of Present Illness INITIAL COMMENTS - FREE TEXT/NARRATIVE: Nathaniel is a 55 year old male who presents to ER with complaints of a recurring headache. States "seem to get worse as the day goes on". Was seen on Wednesday in the ER for cough, headache and weakness. Was worried about covid. Was tested x2 now, both negative. Had labs and chest xray on Wednesday that were stable. He had improvement of the headache in ER that day prior to getting tylenol. Relates that yesterday he got a headache in the afternoon but it went away with Tylenol. Today, not improving and feels somewhat weak again. Describes headache as pressure to his forehead. Had large emesis in ER prior to my arrival. Admits to light sensitivity. No weakness in arms or legs. Speech has been clear. No vision changes. Onset: Today, Gradual Duration: Day(s):, Waxing/Waning Location: Reports: Head Quality: Reports: Ache Severity: Moderate Improves with: Reports: None Associated Symptoms: Reports: Shortness of Breath (has chronic shortness of breath). 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: Acetaminophen headache Pain Score (Numeric/FACES): 8 - Related Data Allergies Allergy/AdvReac Type Severity Reaction Status Date / Time pneumococcal vaccine Allergy Cannot Verified 03/17/20 14:42 Remember sulfamethoxazole Allergy Shortness Verified 03/17/20 14:42 [From Bactrim] of Breath trimethoprim [From Bactrim] Allergy Shortness Verified 03/17/20 14:42 of Breath Home Meds: Home Meds Acetaminophen [Tylenol] 650 mg PO Q4H PRN 04/24/13 [History] Ascorbic Acid [Vitamin C] 500 mg PO BID 04/24/13 [History] Atenolol [Tenormin] 50 mg PO DAILY 04/24/13 [History] Famotidine [Pepcid] 20 mg PO BID 04/24/13 [History] Ferrous Sulfate [Iron] 325 mg PO BID 04/24/13 [History] Folic Acid 1 mg PO DAILY 04/24/13 [History] Insulin Aspart [NovoLOG] 20 unit SUBCUT WITHLUNCH 04/24/13 [History] Insulin Glarg,Human.Rec.Analog [Lantus] 60 unit SQ BEDTIME 04/24/13 [History] Lisinopril [Zestril] 10 mg PO DAILY 04/24/13 [History] amLODIPine [Norvasc] 10 mg PO DAILY 04/24/13 [History] hydroCHLOROthiazide [Hydrochlorothiazide] 25 mg PO DAILY 04/24/13 [History] Magnesium 1,000 mg PO DAILY 01/27/15 [History] Multivitamin [Multivitamins] 1 tab PO DAILY 01/27/15 [History] Cholecalciferol (Vitamin D3) [Vitamin D3] 5,000 unit PO DAILY 09/07/15 [History] metFORMIN HCl [Metformin HCl] 1,000 mg PO BID 01/14/17 [History] Rosuvastatin Calcium 10 mg PO BEDTIME 02/03/17 [History] Albuterol/Ipratropium [DuoNeb 3.0-0.5 MG/3 ML] 1 vial NEB Q4H PRN 05/24/17 [History] Liraglutide [Victoza] 1.8 mg SUBCUT DAILY 11/07/17 [History] Rivaroxaban [Xarelto] 20 mg PO DAILY 02/28/19 [History] Albuterol Sulfate [Proair Hfa] 2 puff INH Q4HR PRN 07/18/19 [History] Umeclidinium Brm/Vilanterol Tr [Anoro Ellipta 62.5-25 MCG] 1 puff INH DAILY 07/18/19 [History] Past Medical History HEENT History: Reports: Impaired Vision, Other (See Below) Other HEENT History: right hearing loss due to cerumen impaction, TMJ syndrome Cardiovascular History: Reports: Afib, High Cholesterol, Hypertension, SOB on Exertion, Other (See Below) Other Cardiovascular History: systolic murmur of aorta Respiratory History: Reports: Pneumonia, Recurrent, SOB Gastrointestinal History: Reports: GERD Genitourinary History: Reports: BPH, Chronic Renal Insuffiency, Other (See Below) Other Genitourinary History: nocturia, low testosterone Musculoskeletal History: Reports: Arthritis, Back Pain, Chronic, Other (See Below) Other Musculoskeletal History: back pain with sciatica Endocrine/Metabolic History: Reports: Diabetes, Type II, Obesity/BMI 30+, Vitamin D Deficiency Hematologic History: Reports: Other (See Below) Other Hematologic History: vitamin D deficiency Dermatologic History: Reports: Other (See Below) Other Dermatologic History: history of candidiasis and cellulitis of umbilicus, hx of inflamed seborrheic keratosis - Infectious Disease History Infectious Disease History: Reports: MRSA - Past Surgical History GI Surgical History: Reports: Other (See Below) Other GI Surgeries/Procedures: panniculectomy Social & Family History - Family History Family Medical History: Noncontributory Endocrine/Metabolic: Reports: Diabetes, type II, Obesity/MBI 30+ - Tobacco Use Tobacco Use Status *Q: Never Tobacco User Second Hand Smoke Exposure: No - Caffeine Use Caffeine Use: Reports: None - Recreational Drug Use Recreational Drug Use: No - Living Situation & Occupation Living situation: Reports: Single Occupation: Unemployed ED ROS GENERAL - Review of Systems Review Of Systems: See Below Constitutional: Reports: Fatigue. Denies: Fever, Chills, Malaise, Weakness, Decreased Appetite HEENT: Reports: Rhinitis. Denies: Dental Pain, Ear Pain, Throat Pain, Vision Change Respiratory: Reports: Shortness of Breath, Cough Cardiovascular: Denies: Chest Pain, Edema, Lightheadedness Endocrine: Reports: Fatigue GI/Abdominal: Reports: Nausea, Vomiting. Denies: Abdominal Pain, Constipation, Diarrhea : Reports: No Symptoms Musculoskeletal: Reports: No Symptoms Skin: Reports: No Symptoms Neurological: Reports: Headache, Weakness - Physical Exam Exam: See Below Exam Limited By: No Limitations General Appearance: Alert, WD/WN, Mild Distress Eye Exam: Bilateral Eye: EOMI, PERRL Ears: Normal External Exam, Normal TMs Nose: Normal Inspection, Normal Mucosa, No Blood Throat/Mouth: Normal Inspection, Normal Oropharynx Head Exam: Normocephalic Neck: Normal Inspection, Supple, Non-Tender Respiratory/Chest: No Respiratory Distress, Lungs Clear, Normal Breath Sounds Cardiovascular: Regular Rate, Rhythm Neuro Exam (Abbreviated): Alert, Oriented, CN II-XII Intact, Normal Cognition, Normal Gait, Normal Reflexes, No Motor/Sensory Deficits Extremities: Normal Inspection, Pedal Edema Skin Exam: Warm, Dry Course - Vital Signs Last Recorded V/S: Last Vital Signs Temp 98.4 F 03/17/20 14:43 Pulse 80 03/17/20 16:32 Resp 18 03/17/20 16:32 BP 149/81 H 03/17/20 16:32 Pulse Ox 98 03/17/20 16:32 - Orders/Labs/Meds Orders: Active Orders 24 hr Category Date Time Status Head wo Cont [CT] Stat Exams 03/17/20 14:41 Taken Meds: Medications Discontinued Medications Generic Name Dose Route Start Last Admin Trade Name Fresai PRN Reason Stop Dose Admin Fentanyl 25 mcg 03/17/20 15:17 03/17/20 15:35 Sublimaze IVPUSH 25 mcg Q6H PRN Administration Pain Sodium Chloride 1,000 mls @ 200 mls/hr 03/17/20 15:30 03/17/20 15:35 Normal Saline IV 200 mls/hr ASDIRECTED BELKIS Administration Ketorolac Tromethamine 60 mg 03/17/20 15:41 03/17/20 15:57 Toradol IM 03/17/20 15:42 60 mg ONETIME ONE Administration Ondansetron HCl 4 mg 03/17/20 14:55 03/17/20 15:02 Zofran IVPUSH 03/17/20 14:56 4 mg NOW STA Administration - Re-Assessments/Exams Free Text/Narrative Re-Assessment/Exam: 03/17/20 15:[address] is normal. Patient resting more comfortably after the fentanyl but admits headache is not resolved. Toradol given. Departure - Departure Time of Disposition: 15:42 Disposition: Home, Self-Care 01 Condition: Good Clinical Impression: Migraine - Discharge Information *PRESCRIPTION DRUG MONITORING PROGRAM REVIEWED*: No *COPY OF PRESCRIPTION DRUG MONITORING REPORT IN PATIENT MAICO: No Instructions: Migraine Headache Referrals: Cristal Allison PA-C [Primary Care Provider] - Forms: ED Department Discharge Additional Instructions: 1. Rest 2. Push fluids 3. Alternate tylenol with ibuprofen for headache 4. Follow up with Cristal Allison if headaches persist. Sepsis Event Note (ED) - Evaluation Sepsis Screening Result: No Definite Risk - Focused Exam Vital Signs: Vital Signs Temp Pulse Resp BP Pulse Ox 03/17/20 16:32 80 18 149/81 H 98 03/17/20 14:43 98.4 F 90 18 164/85 H 98 - My Orders Last 24 Hours: My Active Orders 03/17/20 14:41 Head wo Cont [CT] Stat - Assessment/Plan Last 24 Hours: My Active Orders 03/17/20 14:41 Head wo Cont [CT] Stat
[2020-03-17] MEDS ORDERED: fentaNYL 100 MCG/2 ML SDV IVPUSH PRN (15:17)
[2020-03-17] MEDS ORDERED: Sodium Chloride 0.9% 1,000 ML IV SCH (15:30)
[2020-03-17] MEDS ORDERED: Ketorolac 60 MG/2 ML SDV IM ONE (15:41)
[2020-03-17 16:33] VITALS: BP 149/81; PULSE 80
== END 2020-03-17 16:50 | disposition home or self-care (01) ==
LOC: CC.ED 14:41
DX: G43.909 Migraine, unspecified, not intractable, without status migrainosus (principal); I12.9 Hypertensive chronic kidney disease with stage 1 through stage 4 chronic kidney disease, or unspecified chronic kidney disease; E11.22 Type 2 diabetes mellitus with diabetic chronic kidney disease; N18.9 Chronic kidney disease, unspecified; E78.00 Pure hypercholesterolemia, unspecified; I48.91 Unspecified atrial fibrillation; K21.9 Gastro-esophageal reflux disease without esophagitis; E66.9 Obesity, unspecified; Z88.7 Allergy status to serum and vaccine; Z88.2 Allergy status to sulfonamides; Z79.01 Long term (current) use of anticoagulants; Z79.4 Long term (current) use of insulin; Z79.899 Other long term (current) drug therapy; Z68.43 Body mass index [BMI] 50.0-59.9, adult
CPT/HCPCS: 70450; 96372; 96374; 96375; 99283-25; J1885; J2405; J3010; J7030

== ENCOUNTER → 2021-01-31 | Day surgery (SDC) | payer MEDICAID ==
[~2021-01-31] MED LIST changes: +Albuterol/Ipratropium 3.0-0.5 MG/3 ML Neb Soln ONE; +Ketamine 200 MG/20 ML MDV ONE; -Lactated Ringers 1,000 ML IV SCH; +Midazolam 1 MG/ML 2 ML SDV ONE; -Propofol 200 MG/20 ML SDV IV ONE; +Propofol 200 MG/20 ML SDV ONE
[2021-01-31] MEDS: Lactated Ringers 1,000 ML IV SCH (07:14)
[2021-01-31 08:42] VITALS: PULSE 81
[2021-01-31 09:56] VITALS: BP 163/86
--- NOTE | 2021-01-31 14:12 | OR ---
DATE OF OPERATION: 01/31/2021 PREOPERATIVE DIAGNOSIS: HISTORY OF POLYPS. POSTOPERATIVE DIAGNOSIS: HISTORY OF POLYPS. SURGEON: Indra Watson MD PROCEDURE: FULL-LENGTH COLONOSCOPY WITH SNARE POLYPECTOMY X2. ANESTHESIA: MAC. COMPLICATIONS: None. SPECIMEN: Two tubular adenomas, cecal pouch, each approximately 4 to 5 mm. FINDINGS: 1. Full-length colonoscopy. 2. Tubular adenomas x2, cecum. 3. Mild sigmoid diverticulosis. 4. Poor prep. RECOMMENDATIONS: The patient should be fine for a 5-year followup scope. INDICATIONS: The patient has a prior large tubular adenoma removed from his rectal vault. He had a followup 3 years later with extremely poor prep, and we are doing a repeat now in 2 years at the request of Cristal Keegan. DESCRIPTION OF PROCEDURE: The patient was prepped and draped, placed in the left lateral decubitus position. A lubricated Olympus colonoscope was inserted and with ease advanced to the cecum. Direct visualization of ileocecal valve and appendiceal orifice was accomplished. The bowel prep was marginal. It was better than his previous. There was a lot of darker liquid stool throughout, and the patient coughed frequently throughout the exam. It made hard to keep air in him, but for the most part, we got a pretty good look at his colon. I suspect we saw at least 85% to 90% of it. Upon withdrawal, we irrigated the cecum thoroughly. There was a lot of stool. We found two small tubular adenomas, each probably 4 mm. We snared them both and suctioned in the same polyp trap without difficulty. The rest of the ascending and transverse colons were benign. I could find no lesions in the descending colon that I could visualize, although there was a lot of stool there. The patient had a few scattered diverticula, very minimal in severity in the sigmoid colon. There was a lot of stool in the left side of the colon, and the patient was getting harder to keep insufflated due to persistent coughing, so visualization in the sigmoid and rectosigmoid area was not optimal, but no gross lesions were seen. The rectal vault appeared clear. Retroflexion showed no perianal lesions. Air was suctioned. Scope removed without complication. TIFFANIE/EMILIANO /[id number]
== END ==
LOC: CC.SDS 06:51
PROVIDERS: ATTEND Family Medicine
DX: Z12.11 Encounter for screening for malignant neoplasm of colon (principal); D12.0 Benign neoplasm of cecum; K57.30 Diverticulosis of large intestine without perforation or abscess without bleeding; I50.9 Heart failure, unspecified; N40.0 Benign prostatic hyperplasia without lower urinary tract symptoms; J44.9 Chronic obstructive pulmonary disease, unspecified; K21.9 Gastro-esophageal reflux disease without esophagitis; E78.5 Hyperlipidemia, unspecified; I10 Essential (primary) hypertension; E66.01 Morbid (severe) obesity due to excess calories; I48.0 Paroxysmal atrial fibrillation; E11.9 Type 2 diabetes mellitus without complications; E55.9 Vitamin D deficiency, unspecified; Z88.1 Allergy status to other antibiotic agents; Z79.899 Other long term (current) drug therapy; Z79.84 Long term (current) use of oral hypoglycemic drugs; Z79.4 Long term (current) use of insulin; Z98.890 Other specified postprocedural states; Z68.43 Body mass index [BMI] 50.0-59.9, adult
CPT/HCPCS: 00812; J2250; J2704; J7120

== ENCOUNTER 2021-09-13 11:51 | Inpatient (IN) | payer BC, MEDICAID ==
[2021-09-13] MEDS ORDERED: Albuterol 0.083% 2.5 MG/3 ML Neb Soln NEB ONE (11:59)
[2021-09-13] MEDS ORDERED: Nitroglycerin 2% Oint 1 GM UD Packet TOP ONE (11:59)
[2021-09-13] MEDS ORDERED: Furosemide 40 MG/4 ML VIAL IVPUSH ONE (11:59)
[2021-09-13] MEDS ORDERED: Sodium Chloride 0.9% 10 ML Syringe FLUSH PRN (11:59)
[2021-09-13] MEDS: Piperacillin/Tazobactam 3.375 GM in Sodium Chloride 0.9% 100 ML IV SCH ×2 (12:52→19:59)
[2021-09-13 13:05] LABS: CORONAVIRUS COVID-19 NAA NEGATIVE (NEGATIVE); RESPIRATORY SYNCYTIAL VIR NAA NEGATIVE (NEGATIVE)
[2021-09-13] MEDS ORDERED: methylPREDNISolone Sodium Succinate 125 MG/2 ML SDV IVPUSH ONE (13:15)
[2021-09-13] MEDS ORDERED: Sodium Chloride 0.9% 1,000 ML IV SCH (13:15)
[2021-09-13] MEDS ORDERED: Glucagon,Human Recombinant 1 MG Vial IM PRN ×2 (14:06→14:09)
[2021-09-13] MEDS ORDERED: 50% Dextrose in Water 50 ML Syringe IVPUSH PRN ×2 (14:06→14:09)
[2021-09-13] MEDS ORDERED: Ondansetron 4 MG/2 ML SDV IV PRN (14:09)
[2021-09-13] MEDS ORDERED: traMADol 50 MG Tab PO PRN (14:09)
[2021-09-13] MEDS ORDERED: Docusate Sodium 100 MG Cap PO PRN (14:09)
[2021-09-13] MEDS ORDERED: Acetaminophen 325 MG Tab PO PRN (14:09)
[2021-09-13] MEDS ORDERED: Ondansetron 4 MG Tab.DIS PO PRN (14:09)
[2021-09-13] MEDS ORDERED: Melatonin 3 MG Tab PO PRN (14:09)
[2021-09-13] MEDS ORDERED: Benzonatate 100 MG Cap PO PRN (14:32)
[2021-09-13] MEDS: Albuterol/Ipratropium 3.0-0.5 MG/3 ML Neb Soln NEB SCH ×2 (15:16→23:45)
[2021-09-13] MEDS: Insulin Regular, Human 100 Units/ML 3 ML Vial SUBCUT SCH (17:06)
[2021-09-13] MEDS: metFORMIN 500 MG Tab PO SCH (17:21)
[2021-09-13] MEDS: Ascorbic Acid 500 MG Tab PO SCH (19:59)
[2021-09-13] MEDS: Famotidine 20 MG Tab PO SCH (19:59)
[2021-09-13] MEDS ORDERED: Insulin Glarg,Human.Rec.Analog 100 Unit/ML SUBCUT SCH (20:00)
[2021-09-13] MEDS ORDERED: Simvastatin 40 MG Tab PO SCH (20:00)
[2021-09-13] MEDS ORDERED: Ferrous Sulfate 324 MG Tab.EC PO SCH (20:00)
[2021-09-13] MEDS: Albuterol 0.083% 2.5 MG/3 ML Neb Soln NEB PRN (20:03)
[2021-09-13] MEDS: Ferrous Sulfate 324 MG Tab.EC PO SCH (21:42)
[2021-09-14] MEDS: Piperacillin/Tazobactam 3.375 GM in Sodium Chloride 0.9% 100 ML IV SCH ×2 (04:09→14:06)
[2021-09-14] MEDS: Albuterol 0.083% 2.5 MG/3 ML Neb Soln NEB PRN ×3 (04:13→14:06)
[2021-09-14] MEDS: Famotidine 20 MG Tab PO SCH (07:50)
[2021-09-14] MEDS: metFORMIN 500 MG Tab PO SCH (07:50)
[2021-09-14] MEDS: Albuterol/Ipratropium 3.0-0.5 MG/3 ML Neb Soln NEB SCH ×2 (07:50→15:25)
[2021-09-14] MEDS: Ferrous Sulfate 324 MG Tab.EC PO SCH (07:51)
[2021-09-14] MEDS: Ascorbic Acid 500 MG Tab PO SCH (07:52)
[2021-09-14] MEDS: Insulin Regular, Human 100 Units/ML 3 ML Vial SUBCUT SCH ×2 (07:52→11:45)
[2021-09-14] MEDS ORDERED: Non-Formulary Medication 1 Each (Rivaroxaban [Xarelto] 20 MG Tablet) PO SCH (08:00)
[2021-09-14] MEDS ORDERED: Lisinopril 10 MG Tab PO SCH (08:00)
[2021-09-14] MEDS ORDERED: Folic Acid 1 MG Tab PO SCH (08:00)
[2021-09-14] MEDS ORDERED: Atenolol 50 MG Tab PO SCH (08:00)
[2021-09-14] MEDS ORDERED: Multivitamin Tab PO SCH (08:00)
[2021-09-14] MEDS ORDERED: Cholecalciferol (Vitamin D3) 5,000 UNIT Tab PO SCH (08:00)
[2021-09-14] MEDS ORDERED: Non-Formulary Medication 1 Each (Umeclidinium Brm/Vilanterol Tr [Anoro Ellipta 62.5-25 Mcg INH SCH (08:00)
[2021-09-14] MEDS ORDERED: amLODIPine 10 MG Tab PO SCH (08:00)
[2021-09-14] MEDS ORDERED: Non-Formulary Medication 1 Each (Liraglutide [Victoza] 18 MG/3 ML Pen) SUBCUT SCH (08:00)
[2021-09-14] MEDS ORDERED: Apixaban 5 MG Tab PO SCH (08:45)
[2021-09-14] MEDS ORDERED: Sodium Chloride 0.9% 1,000 ML IV SCH (09:00)
[2021-09-14] MEDS ORDERED: Sodium Chloride 0.9% 1,000 ML IV ONE (09:00)
[2021-09-14] MEDS ORDERED: Azithromycin 500 MG in Sodium Chloride 0.9% 250 ML IV SCH (09:00)
[2021-09-14] MEDS ORDERED: Azithromycin 500 MG Vial ONE (09:31)
[2021-09-14] MEDS: Albuterol 0.083% 2.5 MG/3 ML Neb Soln NEB SCH ×2 (11:45→16:05)
[2021-09-14] MEDS ORDERED: Magnesium Sulfate/Water 2 GM in Premix Bag 1 BAG IV ONE (14:17)
[2021-09-14 16:12] VITALS: BP 139/74
[2021-09-14] MEDS ORDERED: Furosemide 40 MG/4 ML VIAL IVPUSH ONE (16:34)
[2021-09-14] MEDS ORDERED: Nitroglycerin 2% Oint 1 GM UD Packet TOP ONE (16:34)
[2021-09-14 16:51] VITALS: PULSE 89
[2021-09-14] MEDS ORDERED: Nitroglycerin 2% Oint 1 GM UD Packet ONE ×2 (17:03→17:04)
[2021-09-14] MEDS ORDERED: Furosemide 40 MG/4 ML VIAL ONE (17:03)
[2021-09-14] MEDS ORDERED: Nystatin Topical Powder 15 GM Bottle TOP SCH (20:00)
[2021-09-15] MEDS ORDERED: predniSONE 20 MG Tab PO ONE (14:17)
== END 2021-09-14 17:53 | DRG 682 ==
LOC: CC.ED 11:51 → CC.MS 13:16 → UNDOADMIN 13:40 → CC.MS 13:40 → CC.ED 13:43 → UNDODISIN 09-14 17:53
PROVIDERS: ADMIT Physician Assistant; ATTEND Physician Assistant
DX: N17.9 Acute kidney failure, unspecified (principal); J18.9 Pneumonia, unspecified organism; Z28.39 Other underimmunization status; J96.01 Acute respiratory failure with hypoxia; R06.03 Acute respiratory distress; R74.02 Elevation of levels of lactic acid dehydrogenase [LDH]; H54.7 Unspecified visual loss; I50.41 Acute combined systolic (congestive) and diastolic (congestive) heart failure; N39.0 Urinary tract infection, site not specified; I13.0 Hypertensive heart and chronic kidney disease with heart failure and stage 1 through stage 4 chronic kidney disease, or unspecified chronic kidney disease; Z68.43 Body mass index [BMI] 50.0-59.9, adult; Z20.822 Contact with and (suspected) exposure to COVID-19; J44.0 Chronic obstructive pulmonary disease with (acute) lower respiratory infection; R79.89 Other specified abnormal findings of blood chemistry; N40.1 Benign prostatic hyperplasia with lower urinary tract symptoms; R35.1 Nocturia; E78.00 Pure hypercholesterolemia, unspecified; I48.91 Unspecified atrial fibrillation; E11.22 Type 2 diabetes mellitus with diabetic chronic kidney disease; Z88.7 Allergy status to serum and vaccine; Z79.01 Long term (current) use of anticoagulants; K21.9 Gastro-esophageal reflux disease without esophagitis; N40.0 Benign prostatic hyperplasia without lower urinary tract symptoms; N18.9 Chronic kidney disease, unspecified; J44.9 Chronic obstructive pulmonary disease, unspecified; E66.01 Morbid (severe) obesity due to excess calories; M19.90 Unspecified osteoarthritis, unspecified site; G89.29 Other chronic pain; M54.9 Dorsalgia, unspecified; G43.909 Migraine, unspecified, not intractable, without status migrainosus; E55.9 Vitamin D deficiency, unspecified; Z86.14 Personal history of Methicillin resistant Staphylococcus aureus infection; Z79.4 Long term (current) use of insulin; Z79.899 Other long term (current) drug therapy; Z88.2 Allergy status to sulfonamides; Z88.8 Allergy status to other drugs, medicaments and biological substances
CPT/HCPCS: 0241U; 36415; 71045; 80048; 80053; 82947; 83605; 83735; 84484; 85025; 85379; 85610; 86140; 87040; 93005; 94640; 96365; 96375; 99223; 99239; 99285-25; A9270-GY; J0456; J1815-GY; J1940; J2543; J2930; J3475; J7030; J7050; J7613-GY; J7620-GY

== ENCOUNTER 2021-12-15 11:22 | Inpatient (IN) | payer MEDICAID ==
[2021-12-15] MEDS ORDERED: Sodium Chloride 0.9% 10 ML Syringe FLUSH PRN (12:11)
[2021-12-15] MEDS ORDERED: Sodium Chloride 0.9% 1,000 ML IV STA (12:11)
[2021-12-15] MEDS ORDERED: 50% Dextrose in Water 50 ML Syringe IVPUSH PRN (12:33)
[2021-12-15] MEDS ORDERED: Glucagon,Human Recombinant 1 MG Vial IM PRN (12:33)
[2021-12-15] MEDS ORDERED: Albuterol 8 GM Inhaler INH PRN (12:33)
[2021-12-15] MEDS: Furosemide 40 MG/4 ML VIAL IVPUSH SCH (13:14)
[2021-12-15] MEDS: Insulin Lispro 100 Units/ML 3 ML Vial SUBCUT SCH (13:37)
[2021-12-15] MEDS ORDERED: Acetaminophen 325 MG Tab PO PRN (13:38)
[2021-12-15] MEDS: metFORMIN 500 MG Tab PO SCH (17:02)
[2021-12-15] MEDS: Ferrous Sulfate 324 MG Tab.EC PO SCH (17:05)
[2021-12-15] MEDS: Ascorbic Acid 500 MG Tab PO SCH (19:54)
[2021-12-15] MEDS: ROSUVASTATIN CALCIUM 10 MG PO SCH (19:55)
[2021-12-15] MEDS: Insulin Glarg,Human.Rec.Analog 100 Unit/ML SUBCUT SCH (19:56)
[2021-12-15] MEDS: Famotidine 20 MG Tab PO SCH (19:59)
[2021-12-15] MEDS: Albuterol/Ipratropium 3.0-0.5 MG/3 ML Neb Soln NEB PRN (20:53)
[2021-12-16] MEDS: Ascorbic Acid 500 MG Tab PO SCH ×2 (07:56→19:45)
[2021-12-16] MEDS: Hydrochlorothiazide 25 MG Tab PO SCH (07:56)
[2021-12-16] MEDS: Ferrous Sulfate 324 MG Tab.EC PO SCH ×2 (07:57→17:28)
[2021-12-16] MEDS: Cholecalciferol (Vitamin D3) 5,000 UNIT Tab PO SCH (07:57)
[2021-12-16] MEDS: amLODIPine 10 MG Tab PO SCH (07:57)
[2021-12-16] MEDS: Multivitamin Tab PO SCH (07:57)
[2021-12-16] MEDS: Lisinopril 10 MG Tab PO SCH (07:58)
[2021-12-16] MEDS: Folic Acid 1 MG Tab PO SCH (07:58)
[2021-12-16] MEDS: Atenolol 50 MG Tab PO SCH (07:58)
[2021-12-16] MEDS: Furosemide 40 MG Tab PO SCH (07:58)
[2021-12-16] MEDS: Furosemide 40 MG/4 ML VIAL IVPUSH SCH ×2 (07:59→15:13)
[2021-12-16] MEDS: metFORMIN 500 MG Tab PO SCH ×2 (07:59→17:28)
[2021-12-16] MEDS: Famotidine 20 MG Tab PO SCH ×2 (08:00→19:45)
[2021-12-16] MEDS ORDERED: Non-Formulary Medication 1 Each (Umeclidinium Brm/Vilanterol Tr [Anoro Ellipta 62.5-25 Mcg INH SCH (08:00)
[2021-12-16] MEDS: Insulin Lispro 100 Units/ML 3 ML Vial SUBCUT SCH ×2 (08:00→12:09)
[2021-12-16] MEDS: LIRAGLUTIDE 6 MG/ML SUBCUT SCH (08:01)
[2021-12-16] MEDS: RIVAROXABAN 20 MG PO SCH (08:03)
[2021-12-16] MEDS: ROSUVASTATIN CALCIUM 10 MG PO SCH (19:46)
[2021-12-16] MEDS ORDERED: Insulin Glarg,Human.Rec.Analog 100 Unit/ML SUBCUT SCH (20:00)
[2021-12-16] MEDS ORDERED: 50% Dextrose in Water 50 ML Syringe IVPUSH PRN (20:31)
[2021-12-16] MEDS ORDERED: Glucagon,Human Recombinant 1 MG Vial IM PRN (20:31)
[2021-12-16] MEDS: Insulin Glarg,Human.Rec.Analog 100 Unit/ML SUBCUT SCH (20:44)
[2021-12-16] MEDS: Albuterol/Ipratropium 3.0-0.5 MG/3 ML Neb Soln NEB PRN (22:56)
[2021-12-17] MEDS: Atenolol 50 MG Tab PO SCH (07:56)
[2021-12-17] MEDS: Cholecalciferol (Vitamin D3) 5,000 UNIT Tab PO SCH (07:56)
[2021-12-17] MEDS: Lisinopril 10 MG Tab PO SCH (07:57)
[2021-12-17] MEDS: Ferrous Sulfate 324 MG Tab.EC PO SCH (07:57)
[2021-12-17] MEDS: metFORMIN 500 MG Tab PO SCH (07:58)
[2021-12-17] MEDS: Furosemide 40 MG Tab PO SCH (07:58)
[2021-12-17] MEDS: Folic Acid 1 MG Tab PO SCH (07:58)
[2021-12-17] MEDS: amLODIPine 10 MG Tab PO SCH (07:58)
[2021-12-17] MEDS: Multivitamin Tab PO SCH (07:59)
[2021-12-17] MEDS: Ascorbic Acid 500 MG Tab PO SCH (07:59)
[2021-12-17] MEDS: Furosemide 40 MG/4 ML VIAL IVPUSH SCH (07:59)
[2021-12-17] MEDS: Famotidine 20 MG Tab PO SCH (07:59)
[2021-12-17] MEDS: Hydrochlorothiazide 25 MG Tab PO SCH (07:59)
[2021-12-17] MEDS: RIVAROXABAN 20 MG PO SCH (08:02)
[2021-12-17] MEDS: LIRAGLUTIDE 6 MG/ML SUBCUT SCH (08:03)
[2021-12-17] MEDS: Insulin Lispro 100 Units/ML 3 ML Vial SUBCUT SCH ×2 (08:04→11:41)
[2021-12-17 15:25] VITALS: BP 152/68; PULSE 72
== END 2021-12-17 15:37 | disposition home or self-care (01) | DRG 292 ==
LOC: CC.MS 11:22 → UNDOADMIN 11:22 → CC.MS 12:09
PROVIDERS: ADMIT Physician Assistant Medical; ATTEND Nurse Practitioner Family
DX: I13.0 Hypertensive heart and chronic kidney disease with heart failure and stage 1 through stage 4 chronic kidney disease, or unspecified chronic kidney disease (principal); Z68.43 Body mass index [BMI] 50.0-59.9, adult; N18.9 Chronic kidney disease, unspecified; E11.22 Type 2 diabetes mellitus with diabetic chronic kidney disease; I50.9 Heart failure, unspecified; I48.91 Unspecified atrial fibrillation; E66.9 Obesity, unspecified; H91.91 Unspecified hearing loss, right ear; Z20.822 Contact with and (suspected) exposure to COVID-19; E78.5 Hyperlipidemia, unspecified; J44.9 Chronic obstructive pulmonary disease, unspecified; N40.1 Benign prostatic hyperplasia with lower urinary tract symptoms; R35.1 Nocturia; Z87.2 Personal history of diseases of the skin and subcutaneous tissue; Z90.89 Acquired absence of other organs; Z79.1 Long term (current) use of non-steroidal anti-inflammatories (NSAID); Z79.899 Other long term (current) drug therapy; Z87.01 Personal history of pneumonia (recurrent); Z79.01 Long term (current) use of anticoagulants; Z79.4 Long term (current) use of insulin; Z98.42 Cataract extraction status, left eye; Z98.41 Cataract extraction status, right eye; Z79.52 Long term (current) use of systemic steroids; Z98.890 Other specified postprocedural states
CPT/HCPCS: 36415; 71046; 80053; 81001; 82947; 83880; 85025; 94640; 99223; 99233; 99238; A9270-GY; J1815-GY; J1940; J7030; J7620-GY; U0002

== ENCOUNTER 2023-08-13 06:41 | Day surgery (SDC) | payer MEDICAID ==
[2023-08-13] MEDS: Lactated Ringers 1,000 ML IV SCH (07:09)
[2023-08-13] MEDS ORDERED: Propofol 200 MG/20 ML SDV ONE (07:32)
[2023-08-13] MEDS ORDERED: fentaNYL 50 MCG/ML SDV ONE (07:32)
[2023-08-13 08:43] VITALS: BP 126/73; PULSE 47
== END 2023-08-13 08:50 | disposition home or self-care (01) ==
LOC: CC.SDS 06:41
PROVIDERS: ATTEND Family Medicine
DX: D12.5 Benign neoplasm of sigmoid colon (principal); K52.9 Noninfective gastroenteritis and colitis, unspecified; K92.1 Melena; K57.30 Diverticulosis of large intestine without perforation or abscess without bleeding; E78.5 Hyperlipidemia, unspecified; I10 Essential (primary) hypertension; E11.9 Type 2 diabetes mellitus without complications; E55.9 Vitamin D deficiency, unspecified; N28.9 Disorder of kidney and ureter, unspecified; I48.0 Paroxysmal atrial fibrillation; E66.01 Morbid (severe) obesity due to excess calories; K21.9 Gastro-esophageal reflux disease without esophagitis; J44.9 Chronic obstructive pulmonary disease, unspecified; I50.9 Heart failure, unspecified; N40.0 Benign prostatic hyperplasia without lower urinary tract symptoms; M19.90 Unspecified osteoarthritis, unspecified site; I35.0 Nonrheumatic aortic (valve) stenosis; Z79.899 Other long term (current) drug therapy; Z68.42 Body mass index [BMI] 45.0-49.9, adult; Z87.19 Personal history of other diseases of the digestive system
CPT/HCPCS: J2704; J3010; J7120

== ENCOUNTER 2024-04-21 16:53 | Inpatient (IN) | payer MEDICAID ==
[2024-04-21] MEDS ORDERED: Ondansetron 4 MG/2 ML SDV IV PRN (17:02)
[2024-04-21] MEDS ORDERED: Ondansetron 4 MG Tab.DIS PO PRN (17:02)
[2024-04-21] MEDS ORDERED: Sodium Chloride 0.9% 10 ML Syringe FLUSH PRN (17:02)
[2024-04-21] MEDS ORDERED: 50% Dextrose in Water 50 ML Syringe IVPUSH PRN (17:46)
[2024-04-21] MEDS ORDERED: Glucagon,Human Recombinant 1 MG Vial IM PRN (17:46)
[2024-04-21] MEDS ORDERED: traMADol 50 MG Tab PO PRN (17:46)
[2024-04-21] MEDS: cefTRIAXone 1 GM Vial IVPUSH SCH (17:51)
[2024-04-21] MEDS: methylPREDNISolone Sodium Succinate 125 MG/2 ML SDV IVPUSH SCH (17:52)
[2024-04-21 17:54] LABS: LACTIC ACID 1.2 mmol/L (0.4-2.0)
[2024-04-21] MEDS: Sodium Chloride 0.9% 1,000 ML IV SCH (17:58)
[2024-04-21] MEDS ORDERED: Betamethasone Dipropionate/Clotrimazole 0.05-1% Crm 15 GM Tube TOP SCH (18:00)
[2024-04-21] MEDS: Azithromycin 500 MG in Sodium Chloride 0.9% 250 ML IV SCH (19:19)
[2024-04-21] MEDS: Rosuvastatin 10 MG Tab PO SCH (19:49)
[2024-04-21] MEDS: Famotidine 20 MG Tab PO SCH (19:49)
[2024-04-21] MEDS: Insulin Glarg,Human.Rec.Analog 100 Unit/ML 10 ML Vial SUBCUT SCH (21:17)
[2024-04-21] MEDS: Acetaminophen 325 MG Tab PO PRN (21:30)
[2024-04-21] MEDS: Albuterol/Ipratropium 3.0-0.5 MG/3 ML Neb Soln NEB PRN (23:03)
[2024-04-22] MEDS: Lactobacillus Rhamnosus GG (Probiotic) Cap PO SCH (07:39)
[2024-04-22] MEDS: Folic Acid 1 MG Tab PO SCH (07:39)
[2024-04-22] MEDS: Furosemide 40 MG Tab PO SCH (07:39)
[2024-04-22] MEDS: Magnesium Oxide 400 MG Tab PO SCH (07:39)
[2024-04-22] MEDS: Multivitamin Tab PO SCH (07:39)
[2024-04-22] MEDS: Rivaroxaban 10 MG Tab PO SCH (07:39)
[2024-04-22] MEDS: Insulin Lispro 100 Units/ML 3 ML Vial SUBCUT SCH ×2 (07:40→12:20)
[2024-04-22] MEDS: amLODIPine 10 MG Tab PO SCH (07:40)
[2024-04-22] MEDS: Lisinopril 10 MG Tab PO SCH (07:40)
[2024-04-22] MEDS: Atenolol 50 MG Tab PO SCH (07:40)
[2024-04-22 08:13] LABS: ALBUMIN 2.6 g/dL (3.4-5.0); BASOPHILS ABSOLUTE AUTO 0.01 10^3/uL (0.00-0.50); BASOPHILS PERCENT AUTO 0.3 % (0-1); BILIRUBIN TOTAL 0.5 mg/dL (0.0-1.0); C-REACTIVE PROTEIN 11.28 mg/dL (<=0.50); CALCIUM 8.5 mg/dL (8.4-10.1); CREATININE 1.9 mg/dL (0.7-1.3); EST CRCL DRUG DOSING (CG) 36.86 mL/min; HEMATOCRIT 46.1 % (42.0-52.0); HEMOGLOBIN 14.9 g/dL (14.0-18.0); IMMATURE GRAN ABSOLUTE AUTO 0.01 10^3/uL (0.00-0.49); IMMATURE GRAN PERCENT AUTO 0.3 % (0.0-4.9); LYMPHOCYTES ABSOLUTE AUTO 0.36 10^3/uL (0.60-5.00); LYMPHOCYTES PERCENT AUTO 9.9 % (24-44); MEAN CORPUSCULAR HEMOGLOBIN 26.5 pg (27.0-32.0); MEAN CORPUSCULAR HGB CONC 32.3 g/dL (32.0-36.0); MEAN CORPUSCULAR VOLUME 81.9 fL (83.0-97.0); MONOCYTES ABSOLUTE AUTO 0.13 10^3/uL (0.00-1.50); MONOCYTES PERCENT AUTO 3.6 % (0-10); NEUTROPHILS ABSOLUTE AUTO 3.12 x10^3/uL (1.80-8.00); NEUTROPHILS PERCENT AUTO 85.9 % (41-71); PLATELET COUNT,PLT 192 10^3/uL (150-400); POTASSIUM,K 4.4 mEq/L (3.5-5.0); PROTEIN TOTAL,TP 6.7 g/dL (6.4-8.2); RED BLOOD CELL COUNT 5.63 x10^6/uL (4.50-6.00); WHITE BLOOD CELL COUNT,WBC 3.6 10^3/uL (4.0-11.0)
[2024-04-22] MEDS ORDERED: Glucagon,Human Recombinant 1 MG Vial IM PRN (09:10)
[2024-04-22] MEDS ORDERED: 50% Dextrose in Water 50 ML Syringe IVPUSH PRN (09:10)
[2024-04-22 10:00] LABS: CORONAVIRUS COVID-19 NAA NEGATIVE (NEGATIVE); INFLUENZA A NAA NEGATIVE (NEGATIVE); INFLUENZA B NAA NEGATIVE (NEGATIVE); RESPIRATORY SYNCYTIAL VIR NAA NEGATIVE (NEGATIVE)
[2024-04-22] MEDS: Mometasone Furoate Powder 220 MCG/Puff 14 Dose Inhaler INH SCH (10:12)
[2024-04-22] MEDS ORDERED: Insulin Lispro 100 Units/ML 3 ML Vial SUBCUT SCH ×2 (11:00)
[2024-04-22] MEDS ORDERED: Insulin Regular, Human 100 Units/ML 10 ML Vial SUBCUT SCH (11:00)
[2024-04-22] MEDS: Liraglutide [Victoza] 18 MG/3 ML Pen SUBCUT SCH (19:12)
[2024-04-22] MEDS: metFORMIN 500 MG Tab PO SCH (19:12)
[2024-04-22] MEDS: VILANTEROL INH SCH (19:13)
[2024-04-22] MEDS: UMECLIDINIUM INH SCH (19:13)
[2024-04-22] MEDS: Insulin Glarg,Human.Rec.Analog 100 Unit/ML 10 ML Vial SUBCUT SCH (20:47)
[2024-04-23] MEDS: Albuterol 0.083% 2.5 MG/3 ML Neb Soln NEB PRN (02:10)
[2024-04-23] MEDS: Albuterol/Ipratropium 3.0-0.5 MG/3 ML Neb Soln NEB SCH (07:35)
[2024-04-23 08:05] LABS: HEMATOCRIT 45.6 % (42.0-52.0); HEMOGLOBIN 14.7 g/dL (14.0-18.0); IMMATURE GRAN ABSOLUTE AUTO 0.02 10^3/uL (0.00-0.49); IMMATURE GRAN PERCENT AUTO 0.3 % (0.0-4.9); MEAN CORPUSCULAR HEMOGLOBIN 26.3 pg (27.0-32.0); MEAN CORPUSCULAR HGB CONC 32.2 g/dL (32.0-36.0); MEAN CORPUSCULAR VOLUME 81.7 fL (83.0-97.0); MONOCYTES ABSOLUTE AUTO 0.27 10^3/uL (0.00-1.50); NEUTROPHILS ABSOLUTE AUTO 6.03 x10^3/uL (1.80-8.00); NEUTROPHILS PERCENT AUTO 89.7 % (41-71); PLATELET COUNT,PLT 199 10^3/uL (150-400); RED BLOOD CELL COUNT 5.58 x10^6/uL (4.50-6.00); WHITE BLOOD CELL COUNT,WBC 6.7 10^3/uL (4.0-11.0)
[2024-04-23 08:13] LABS: ALBUMIN 2.6 g/dL (3.4-5.0); BILIRUBIN TOTAL 0.3 mg/dL (0.0-1.0); C-REACTIVE PROTEIN 4.68 mg/dL (<=0.50); CREATININE 2.1 mg/dL (0.7-1.3); EST CRCL DRUG DOSING (CG) 33.35 mL/min; POTASSIUM,K 4.1 mEq/L (3.5-5.0); PROTEIN TOTAL,TP 6.7 g/dL (6.4-8.2)
[2024-04-23] MEDS: Benzonatate 100 MG Cap PO SCH (12:41)
[2024-04-24 07:31] LABS: HEMATOCRIT 48.7 % (42.0-52.0); HEMOGLOBIN 15.7 g/dL (14.0-18.0); IMMATURE GRAN ABSOLUTE AUTO 0.03 10^3/uL (0.00-0.49); IMMATURE GRAN PERCENT AUTO 0.3 % (0.0-4.9); LYMPHOCYTES ABSOLUTE AUTO 0.35 10^3/uL (0.60-5.00); MEAN CORPUSCULAR HEMOGLOBIN 26.5 pg (27.0-32.0); MEAN CORPUSCULAR HGB CONC 32.2 g/dL (32.0-36.0); MEAN CORPUSCULAR VOLUME 82.1 fL (83.0-97.0); MONOCYTES ABSOLUTE AUTO 0.39 10^3/uL (0.00-1.50); MONOCYTES PERCENT AUTO 3.3 % (0-10); NEUTROPHILS ABSOLUTE AUTO 10.97 x10^3/uL (1.80-8.00); NEUTROPHILS PERCENT AUTO 93.4 % (41-71); PLATELET COUNT,PLT 246 10^3/uL (150-400); RED BLOOD CELL COUNT 5.93 x10^6/uL (4.50-6.00); WHITE BLOOD CELL COUNT,WBC 11.7 10^3/uL (4.0-11.0)
[2024-04-24 07:43] LABS: ALBUMIN 3.1 g/dL (3.4-5.0); BILIRUBIN TOTAL 0.3 mg/dL (0.0-1.0); C-REACTIVE PROTEIN 2.27 mg/dL (<=0.50); CREATININE 2.4 mg/dL (0.7-1.3); EST CRCL DRUG DOSING (CG) 29.18 mL/min
[2024-04-24] MEDS: Metolazone 5 MG Tab PO SCH (07:44)
[2024-04-24] MEDS ORDERED: 50% Dextrose in Water 50 ML Syringe IVPUSH PRN (11:37)
[2024-04-24] MEDS ORDERED: Glucagon,Human Recombinant 1 MG Vial IM PRN (11:37)
[2024-04-24] MEDS: Insulin Lispro 100 Units/ML 3 ML Vial SUBCUT SCH (17:21)
[2024-04-24] MEDS: metFORMIN 500 MG Tab PO SCH (17:27)
[2024-04-25 07:32] LABS: ALBUMIN 3.2 g/dL (3.4-5.0); BILIRUBIN TOTAL 0.4 mg/dL (0.0-1.0); C-REACTIVE PROTEIN 2.32 mg/dL (<=0.50); CALCIUM 8.1 mg/dL (8.4-10.1); CREATININE 2.4 mg/dL (0.7-1.3); EST CRCL DRUG DOSING (CG) 29.18 mL/min
[2024-04-25 07:33] LABS: BASOPHILS ABSOLUTE AUTO 0.01 10^3/uL (0.00-0.50); BASOPHILS PERCENT AUTO 0.1 % (0-1); HEMATOCRIT 50.4 % (42.0-52.0); HEMOGLOBIN 15.8 g/dL (14.0-18.0); IMMATURE GRAN ABSOLUTE AUTO 0.01 10^3/uL (0.00-0.49); IMMATURE GRAN PERCENT AUTO 0.1 % (0.0-4.9); LYMPHOCYTES ABSOLUTE AUTO 0.33 10^3/uL (0.60-5.00); LYMPHOCYTES PERCENT AUTO 2.7 % (24-44); MEAN CORPUSCULAR HEMOGLOBIN 26.4 pg (27.0-32.0); MEAN CORPUSCULAR HGB CONC 31.3 g/dL (32.0-36.0); MEAN CORPUSCULAR VOLUME 84.1 fL (83.0-97.0); MONOCYTES ABSOLUTE AUTO 0.39 10^3/uL (0.00-1.50); MONOCYTES PERCENT AUTO 3.2 % (0-10); NEUTROPHILS ABSOLUTE AUTO 11.41 x10^3/uL (1.80-8.00); NEUTROPHILS PERCENT AUTO 93.9 % (41-71); PLATELET COUNT,PLT 241 10^3/uL (150-400); RED BLOOD CELL COUNT 5.99 x10^6/uL (4.50-6.00); WHITE BLOOD CELL COUNT,WBC 12.2 10^3/uL (4.0-11.0)
[2024-04-25 07:45] LABS: POTASSIUM,K 4.8 mEq/L (3.5-5.0)
[2024-04-25] MEDS: Docusate Sodium 100 MG Cap PO PRN (13:22)
[2024-04-25] MEDS: Polyethylene Glycol 3350 Powder 17 GM Packet PO PRN (13:22)
[2024-04-25 16:25] VITALS: BP 109/64; PULSE 95
[2024-04-25] MEDS ORDERED: guaiFENesin 200 MG Tab PO SCH (20:00)
[2024-04-26] MEDS ORDERED: Metolazone 5 MG Tab PO SCH (08:00)
[2024-04-27 07:57] LABS: ALBUMIN 2.7 g/dL (3.4-5.0); BILIRUBIN TOTAL 0.3 mg/dL (0.0-1.0); CALCIUM 8.2 mg/dL (8.4-10.1); CREATININE 1.9 mg/dL (0.7-1.3); EST CRCL DRUG DOSING (CG) 36.86 mL/min; POTASSIUM,K 3.9 mEq/L (3.5-5.0); PROTEIN TOTAL,TP 6.6 g/dL (6.4-8.2)
== END 2024-04-25 16:27 | disposition swing bed (61) | DRG 194 ==
LOC: UNDOADMIN 16:53 → CC.MS 16:53
PROVIDERS: ADMIT Nurse Practitioner Family; ATTEND Nurse Practitioner Family
DX: J18.9 Pneumonia, unspecified organism (principal); E87.1 Hypo-osmolality and hyponatremia; J44.0 Chronic obstructive pulmonary disease with (acute) lower respiratory infection; J44.1 Chronic obstructive pulmonary disease with (acute) exacerbation; N17.9 Acute kidney failure, unspecified; Z68.41 Body mass index [BMI] 40.0-44.9, adult; I48.91 Unspecified atrial fibrillation; E78.00 Pure hypercholesterolemia, unspecified; H26.9 Unspecified cataract; N40.0 Benign prostatic hyperplasia without lower urinary tract symptoms; M19.90 Unspecified osteoarthritis, unspecified site; N18.9 Chronic kidney disease, unspecified; I12.9 Hypertensive chronic kidney disease with stage 1 through stage 4 chronic kidney disease, or unspecified chronic kidney disease; E11.22 Type 2 diabetes mellitus with diabetic chronic kidney disease; E66.01 Morbid (severe) obesity due to excess calories; Z88.2 Allergy status to sulfonamides; Z88.8 Allergy status to other drugs, medicaments and biological substances; Z79.1 Long term (current) use of non-steroidal anti-inflammatories (NSAID); Z79.51 Long term (current) use of inhaled steroids; Z79.4 Long term (current) use of insulin; Z98.49 Cataract extraction status, unspecified eye; Z90.89 Acquired absence of other organs; Z79.84 Long term (current) use of oral hypoglycemic drugs; Z79.899 Other long term (current) drug therapy
CPT/HCPCS: 0241U; 36415; 80053; 82947; 83605; 83880; 85025; 86140; 87040; 94640; 97110-GP; 97161-GP; 99223; 99232; 99233; 99238; A9270-GY; J0456; J0696; J1815-GY; J2919; J7030; J7050; J7613-GY; J7620-GY

== ENCOUNTER 2024-04-25 16:25 | Inpatient (IN) | payer MEDICAID ==
[2024-04-25] MEDS ORDERED: Sodium Chloride 0.9% 10 ML Syringe FLUSH PRN (16:35)
[2024-04-25] MEDS ORDERED: Polyethylene Glycol 3350 Powder 17 GM Packet PO PRN (16:35)
[2024-04-25] MEDS ORDERED: Glucagon,Human Recombinant 1 MG Vial IM PRN ×2 (16:35)
[2024-04-25] MEDS ORDERED: Docusate Sodium 100 MG Cap PO PRN (16:35)
[2024-04-25] MEDS ORDERED: 50% Dextrose in Water 50 ML Syringe IVPUSH PRN (16:35)
[2024-04-25] MEDS ORDERED: traMADol 50 MG Tab PO PRN (16:35)
[2024-04-25] MEDS ORDERED: Ondansetron 4 MG/2 ML SDV IV PRN (16:35)
[2024-04-25] MEDS ORDERED: Acetaminophen 325 MG Tab PO PRN (16:35)
[2024-04-25] MEDS ORDERED: Ondansetron 4 MG Tab.DIS PO PRN (16:35)
[2024-04-25] MEDS: methylPREDNISolone Sodium Succinate 125 MG/2 ML SDV IVPUSH SCH (17:36)
[2024-04-25] MEDS: cefTRIAXone 1 GM Vial IVPUSH SCH (17:36)
[2024-04-25] MEDS: metFORMIN 500 MG Tab PO SCH (17:36)
[2024-04-25] MEDS: Insulin Lispro 100 Units/ML 3 ML Vial SUBCUT SCH (17:41)
[2024-04-25] MEDS: guaiFENesin 200 MG Tab PO SCH (19:35)
[2024-04-25] MEDS: Rosuvastatin 10 MG Tab PO SCH (19:35)
[2024-04-25] MEDS: Albuterol/Ipratropium 3.0-0.5 MG/3 ML Neb Soln NEB SCH (19:35)
[2024-04-25] MEDS: Famotidine 20 MG Tab PO SCH (19:35)
[2024-04-25] MEDS: Azithromycin 500 MG in Sodium Chloride 0.9% 250 ML IV SCH (19:35)
[2024-04-25] MEDS: Insulin Glarg,Human.Rec.Analog 100 Unit/ML 10 ML Vial SUBCUT SCH (20:49)
[2024-04-25] MEDS: Albuterol 0.083% 2.5 MG/3 ML Neb Soln NEB PRN (23:08)
[2024-04-26] MEDS: Metolazone 5 MG Tab PO SCH (07:27)
[2024-04-26] MEDS: Multivitamin Tab PO SCH (07:28)
[2024-04-26] MEDS: Magnesium Oxide 400 MG Tab PO SCH (07:29)
[2024-04-26] MEDS: Rivaroxaban 10 MG Tab PO SCH (07:29)
[2024-04-26] MEDS: Furosemide 40 MG Tab PO SCH (07:30)
[2024-04-26] MEDS: amLODIPine 10 MG Tab PO SCH (07:30)
[2024-04-26] MEDS: Atenolol 50 MG Tab PO SCH (07:30)
[2024-04-26] MEDS: Folic Acid 1 MG Tab PO SCH (07:31)
[2024-04-26] MEDS: Lactobacillus Rhamnosus GG (Probiotic) Cap PO SCH (07:31)
[2024-04-26] MEDS: Lisinopril 10 MG Tab PO SCH (07:31)
[2024-04-26] MEDS: Mometasone Furoate Powder 220 MCG/Puff 14 Dose Inhaler INH SCH (07:33)
[2024-04-26] MEDS: cefTRIAXone 1 GM Vial IVPUSH SCH (16:13)
[2024-04-27 07:57] LABS: ALBUMIN 2.7 g/dL (3.4-5.0); BILIRUBIN TOTAL 0.3 mg/dL (0.0-1.0); CALCIUM 8.2 mg/dL (8.4-10.1); CREATININE 1.9 mg/dL (0.7-1.3); EST CRCL DRUG DOSING (CG) 36.86 mL/min; POTASSIUM,K 3.9 mEq/L (3.5-5.0); PROTEIN TOTAL,TP 6.6 g/dL (6.4-8.2)
[2024-04-28 07:49] VITALS: BP 131/75
[2024-04-28 07:53] VITALS: PULSE 72
[2024-04-28] MEDS: cefTRIAXone 1 GM Vial IVPUSH SCH (10:47)
[2024-04-28] MEDS ORDERED: cefTRIAXone 1 GM Vial IVPUSH SCH (12:00)
== END 2024-04-28 13:35 | disposition home or self-care (01) | DRG 947 ==
LOC: CC.MS 16:25 → UNDOADMIN 16:33 → CC.MS 16:33
PROVIDERS: ADMIT Physician Assistant Medical; ATTEND Physician Assistant Medical
DX: R53.1 Weakness (principal); J18.9 Pneumonia, unspecified organism; R53.81 Other malaise
CPT/HCPCS: 36415; 80053; 82947; 94640; 97110-GP; 99315; A9270-GY; J0456; J0696; J1815-GY; J2919; J7050; J7613-GY; J7620-GY

== ENCOUNTER 2024-05-12 11:25 | Inpatient (IN) | payer MEDICAID ==
[2024-05-12 11:53] LABS: BASOPHILS ABSOLUTE AUTO 0.05 10^3/uL (0.00-0.50); BASOPHILS PERCENT AUTO 1.1 % (0-1); EOSINOPHILS ABSOLUTE AUTO 0.12 10^3/uL (0.00-1.50); EOSINOPHILS PERCENT AUTO 2.6 % (0-6); HEMATOCRIT 40.4 % (42.0-52.0); HEMOGLOBIN 12.8 g/dL (14.0-18.0); IMMATURE GRAN ABSOLUTE AUTO 0.01 10^3/uL (0.00-0.49); IMMATURE GRAN PERCENT AUTO 0.2 % (0.0-4.9); LYMPHOCYTES ABSOLUTE AUTO 1.04 10^3/uL (0.60-5.00); LYMPHOCYTES PERCENT AUTO 22.1 % (24-44); MEAN CORPUSCULAR HEMOGLOBIN 26.3 pg (27.0-32.0); MEAN CORPUSCULAR HGB CONC 31.7 g/dL (32.0-36.0); MEAN CORPUSCULAR VOLUME 83.1 fL (83.0-97.0); MONOCYTES ABSOLUTE AUTO 0.36 10^3/uL (0.00-1.50); MONOCYTES PERCENT AUTO 7.7 % (0-10); NEUTROPHILS ABSOLUTE AUTO 3.12 x10^3/uL (1.80-8.00); NEUTROPHILS PERCENT AUTO 66.3 % (41-71); PLATELET COUNT,PLT 189 10^3/uL (150-400); RED BLOOD CELL COUNT 4.86 x10^6/uL (4.50-6.00); WHITE BLOOD CELL COUNT,WBC 4.7 10^3/uL (4.0-11.0)
[2024-05-12 12:07] LABS: ALANINE AMINOTRANSFERASE,ALT 37 U/L (12-78); ALBUMIN 2.5 g/dL (3.4-5.0); ALKALINE PHOSPHATASE 191 U/L (46-116); ASPARTATE AMNIOTRANSFERASE,AST 19 U/L (15-37); BILIRUBIN TOTAL 0.3 mg/dL (0.0-1.0); BLOOD UREA NITROGEN,BUN 15 mg/dL (7-18); C-REACTIVE PROTEIN 3.58 mg/dL (<=0.50); CARBON DIOXIDE,CO2 26 mmol/L (21-32); CHLORIDE,CL 101 mEq/L (98-106); CREATININE 1.3 mg/dL (0.7-1.3); GLUCOSE RANDOM 274 mg/dL (75-99); POTASSIUM,K 3.7 mEq/L (3.5-5.0); PROTEIN TOTAL,TP 6.6 g/dL (6.4-8.2); SODIUM,NA 136 mEq/L (136-145)
[2024-05-12 12:21] LABS: ESTIMATED GFR 64 mL/min (>=60)
[2024-05-12] MEDS ORDERED: Ondansetron 4 MG/2 ML SDV IV PRN (15:09)
[2024-05-12] MEDS ORDERED: Ondansetron 4 MG Tab.DIS PO PRN (15:09)
[2024-05-12] MEDS ORDERED: Sodium Chloride 0.9% 10 ML Syringe FLUSH PRN (15:09)
[2024-05-12] MEDS ORDERED: Glucagon,Human Recombinant 1 MG Vial IM PRN (15:25)
[2024-05-12] MEDS ORDERED: Albuterol/Ipratropium 3.0-0.5 MG/3 ML Neb Soln NEB PRN (15:25)
[2024-05-12] MEDS ORDERED: Betamethasone Dipropionate/Clotrimazole 0.05-1% Crm 15 GM Tube TOP PRN (15:25)
[2024-05-12] MEDS ORDERED: Albuterol 6.7 GM Inhaler INH PRN (15:25)
[2024-05-12] MEDS ORDERED: 50% Dextrose in Water 50 ML Syringe IVPUSH PRN (15:25)
[2024-05-12] MEDS: ceFAZolin 2 GM Vial IVPUSH ONE (15:29)
[2024-05-12] MEDS ORDERED: traMADol 50 MG Tab PO PRN (15:45)
[2024-05-12] MEDS: Folic Acid 1 MG Tab PO SCH (17:22)
[2024-05-12] MEDS: Ferrous Sulfate 324 MG Tab.EC PO SCH (17:22)
[2024-05-12] MEDS: Furosemide 40 MG Tab PO SCH (17:22)
[2024-05-12] MEDS: Rivaroxaban 10 MG Tab PO SCH (17:22)
[2024-05-12] MEDS: metFORMIN 500 MG Tab PO SCH (17:22)
[2024-05-12] MEDS: Insulin Lispro 100 Units/ML 3 ML Vial SUBCUT SCH (17:34)
[2024-05-12] MEDS: Ascorbic Acid 500 MG Tab PO SCH (19:18)
[2024-05-12] MEDS: Rosuvastatin 10 MG Tab PO SCH (19:18)
[2024-05-12] MEDS: ceFAZolin 2 GM Vial IVPUSH SCH (19:56)
[2024-05-12] MEDS: Insulin Glarg,Human.Rec.Analog 100 Unit/ML 10 ML Vial SUBCUT SCH (20:35)
[2024-05-13] MEDS: Mometasone Furoate Powder 220 MCG/Puff 14 Dose Inhaler INH SCH (07:41)
[2024-05-13 07:42] LABS: BASOPHILS ABSOLUTE AUTO 0.05 10^3/uL (0.00-0.50); HEMATOCRIT 41.6 % (42.0-52.0); HEMOGLOBIN 13.2 g/dL (14.0-18.0); IMMATURE GRAN ABSOLUTE AUTO 0.01 10^3/uL (0.00-0.49); IMMATURE GRAN PERCENT AUTO 0.2 % (0.0-4.9); LYMPHOCYTES ABSOLUTE AUTO 1.04 10^3/uL (0.60-5.00); LYMPHOCYTES PERCENT AUTO 20.6 % (24-44); MEAN CORPUSCULAR HEMOGLOBIN 26.2 pg (27.0-32.0); MEAN CORPUSCULAR HGB CONC 31.7 g/dL (32.0-36.0); MEAN CORPUSCULAR VOLUME 82.5 fL (83.0-97.0); MONOCYTES ABSOLUTE AUTO 0.35 10^3/uL (0.00-1.50); MONOCYTES PERCENT AUTO 6.9 % (0-10); NEUTROPHILS ABSOLUTE AUTO 3.49 x10^3/uL (1.80-8.00); NEUTROPHILS PERCENT AUTO 69.3 % (41-71); PLATELET COUNT,PLT 202 10^3/uL (150-400); RED BLOOD CELL COUNT 5.04 x10^6/uL (4.50-6.00)
[2024-05-13] MEDS: Atenolol 50 MG Tab PO SCH (07:43)
[2024-05-13] MEDS: amLODIPine 10 MG Tab PO SCH (07:43)
[2024-05-13] MEDS: Lisinopril 10 MG Tab PO SCH (07:43)
[2024-05-13] MEDS: Cholecalciferol (Vitamin D3) 5,000 UNIT Tab PO SCH (07:44)
[2024-05-13] MEDS: Magnesium Oxide 400 MG Tab PO SCH (07:44)
[2024-05-13] MEDS: Multivitamin Tab PO SCH (07:44)
[2024-05-13] MEDS: Famotidine 20 MG Tab PO SCH (07:44)
[2024-05-13 08:02] LABS: ALBUMIN 2.6 g/dL (3.4-5.0); BILIRUBIN TOTAL 0.6 mg/dL (0.0-1.0); C-REACTIVE PROTEIN 2.88 mg/dL (<=0.50); CALCIUM 9.1 mg/dL (8.4-10.1); CREATININE 1.4 mg/dL (0.7-1.3); EST CRCL DRUG DOSING (CG) 50.03 mL/min; POTASSIUM,K 3.9 mEq/L (3.5-5.0); PROTEIN TOTAL,TP 6.6 g/dL (6.4-8.2)
[2024-05-13] MEDS: Umeclidinium Brm/Vilanterol Tr [Anoro Ellipta 62.5-25 Mcg**OWN MED INH SCH (10:06)
[2024-05-13] MEDS: Acetaminophen 325 MG Tab PO PRN (17:09)
[2024-05-13] MEDS: LIRAGLUTIDE 18 MG/3 ML SUBCUT SCH (17:28)
[2024-05-14 07:50] LABS: BASOPHILS ABSOLUTE AUTO 0.05 10^3/uL (0.00-0.50); BASOPHILS PERCENT AUTO 0.9 % (0-1); EOSINOPHILS PERCENT AUTO 1.8 % (0-6); HEMATOCRIT 41.2 % (42.0-52.0); HEMOGLOBIN 13.2 g/dL (14.0-18.0); IMMATURE GRAN ABSOLUTE AUTO 0.01 10^3/uL (0.00-0.49); IMMATURE GRAN PERCENT AUTO 0.2 % (0.0-4.9); LYMPHOCYTES ABSOLUTE AUTO 1.19 10^3/uL (0.60-5.00); LYMPHOCYTES PERCENT AUTO 21.3 % (24-44); MEAN CORPUSCULAR HEMOGLOBIN 26.5 pg (27.0-32.0); MEAN CORPUSCULAR VOLUME 82.7 fL (83.0-97.0); MONOCYTES PERCENT AUTO 8.9 % (0-10); NEUTROPHILS ABSOLUTE AUTO 3.74 x10^3/uL (1.80-8.00); NEUTROPHILS PERCENT AUTO 66.9 % (41-71); PLATELET COUNT,PLT 214 10^3/uL (150-400); RED BLOOD CELL COUNT 4.98 x10^6/uL (4.50-6.00); WHITE BLOOD CELL COUNT,WBC 5.6 10^3/uL (4.0-11.0)
[2024-05-14 08:11] LABS: ALBUMIN 2.5 g/dL (3.4-5.0); BILIRUBIN TOTAL 0.3 mg/dL (0.0-1.0); C-REACTIVE PROTEIN 3.61 mg/dL (<=0.50); CALCIUM 8.9 mg/dL (8.4-10.1); CREATININE 1.5 mg/dL (0.7-1.3); EST CRCL DRUG DOSING (CG) 46.69 mL/min; POTASSIUM,K 4.2 mEq/L (3.5-5.0); PROTEIN TOTAL,TP 6.6 g/dL (6.4-8.2)
[2024-05-15] MEDS: Metolazone 5 MG Tab PO SCH (07:30)
[2024-05-15 07:34] LABS: BASOPHILS ABSOLUTE AUTO 0.05 10^3/uL (0.00-0.50); BASOPHILS PERCENT AUTO 0.9 % (0-1); EOSINOPHILS ABSOLUTE AUTO 0.12 10^3/uL (0.00-1.50); EOSINOPHILS PERCENT AUTO 2.2 % (0-6); HEMOGLOBIN 13.1 g/dL (14.0-18.0); IMMATURE GRAN ABSOLUTE AUTO 0.02 10^3/uL (0.00-0.49); IMMATURE GRAN PERCENT AUTO 0.4 % (0.0-4.9); LYMPHOCYTES ABSOLUTE AUTO 1.11 10^3/uL (0.60-5.00); LYMPHOCYTES PERCENT AUTO 20.6 % (24-44); MEAN CORPUSCULAR HEMOGLOBIN 26.4 pg (27.0-32.0); MEAN CORPUSCULAR VOLUME 82.5 fL (83.0-97.0); MONOCYTES ABSOLUTE AUTO 0.62 10^3/uL (0.00-1.50); MONOCYTES PERCENT AUTO 11.5 % (0-10); NEUTROPHILS ABSOLUTE AUTO 3.46 x10^3/uL (1.80-8.00); NEUTROPHILS PERCENT AUTO 64.4 % (41-71); PLATELET COUNT,PLT 211 10^3/uL (150-400); RED BLOOD CELL COUNT 4.97 x10^6/uL (4.50-6.00); WHITE BLOOD CELL COUNT,WBC 5.4 10^3/uL (4.0-11.0)
[2024-05-15 08:21] LABS: ALBUMIN 2.4 g/dL (3.4-5.0); BILIRUBIN TOTAL 0.5 mg/dL (0.0-1.0); C-REACTIVE PROTEIN 6.67 mg/dL (<=0.50); CALCIUM 8.9 mg/dL (8.4-10.1); CREATININE 1.5 mg/dL (0.7-1.3); EST CRCL DRUG DOSING (CG) 46.69 mL/min; PROTEIN TOTAL,TP 6.5 g/dL (6.4-8.2)
[2024-05-15 08:30] LABS: POTASSIUM,K 3.7 mEq/L (3.5-5.0)
[2024-05-15 13:10] VITALS: BP 129/71; PULSE 70
== END 2024-05-15 16:44 | disposition home or self-care (01) | DRG 638 ==
LOC: UNDOADMIN 11:25 → CC.MS 11:25
PROVIDERS: ADMIT Nurse Practitioner Family; ATTEND Nurse Practitioner Family
DX: E11.628 Type 2 diabetes mellitus with other skin complications (principal); L03.115 Cellulitis of right lower limb; Z68.42 Body mass index [BMI] 45.0-49.9, adult; L97.519 Non-pressure chronic ulcer of other part of right foot with unspecified severity; E78.00 Pure hypercholesterolemia, unspecified; E11.22 Type 2 diabetes mellitus with diabetic chronic kidney disease; E11.621 Type 2 diabetes mellitus with foot ulcer; B95.61 Methicillin susceptible Staphylococcus aureus infection as the cause of diseases classified elsewhere; I48.91 Unspecified atrial fibrillation; J44.9 Chronic obstructive pulmonary disease, unspecified; N18.9 Chronic kidney disease, unspecified; N40.0 Benign prostatic hyperplasia without lower urinary tract symptoms; I12.9 Hypertensive chronic kidney disease with stage 1 through stage 4 chronic kidney disease, or unspecified chronic kidney disease; E66.9 Obesity, unspecified; G43.909 Migraine, unspecified, not intractable, without status migrainosus; H54.7 Unspecified visual loss; Z88.1 Allergy status to other antibiotic agents; Z79.899 Other long term (current) drug therapy; Z79.01 Long term (current) use of anticoagulants; Z90.89 Acquired absence of other organs; Z98.49 Cataract extraction status, unspecified eye
CPT/HCPCS: 36415; 73630-RT; 80053; 82947; 85025; 86140; 99223; 99232; 99233; 99239; A6212; A9270-GY; J0690; J1815-GY